=== PATIENT | male | born 1960 | race Caucasian/White ===

== ENCOUNTER → 2020-10-22 16:34 | Outpatient (CLI) | payer OTHER, SELFPAY ==
[2020-10-22 17:12] LABS: Absolute Neutrophil Count 7.3 X10^3/uL (2.0-7.7); Basophil# 0.06 X10^3/uL; Basophil% 0.6 % (0-1); Eosinophil# 0.31 X10^3/uL; Eosinophils% 3.1 % (0-5); Hematocrit 44.3 % (40-54); Hemoglobin 15.1 g/dL (13.0-16.5); Lymphocyte % 15.2 % (19-41); Mean Corp Hgb Conc 34.1 g/dL (32-36); Mean Corpuscular Hgb 29.7 pg (27.0-32.0); Mean Corpuscular Volume 87.2 fL (80-94); Mean Platelet Vol. 10.5 fl (6.2-12.0); Monocyte# 0.69 X10^3/uL; NRBC Flagged by Analyzer 0 % (0-5); Neutrophil # 7.28 X10^3/uL (2.7-7.7); Neutrophil % 73.5 % (47-70); Platelet Count 238 K/mm3 (150-450); RBC Distribution Width CV 13.3 % (11.6-14.6); RBC Distribution Width SD 42.7 fl (35.1-43.9); Red Blood Count 5.08 M/mm3 (4.6-6.2); White Blood Count 9.9 K/mm3 (4.4-11.0)
[2020-10-22 17:56] LABS: ALB/GLOB Ratio 1.1 RATIO (0.9-2.4); AST(SGOT) 24 U/L (15-37); Alanine Aminotransfer ALT/SGPT 43 U/L (16-61); Albumin, Serum 3.8 g/dL (3.2-5.0); Alkaline Phosphatase 73 U/L (45-117); Anion Gap 6 (5-15); BUN 19 mg/dL (7-18); Chloride 107 mmol/L (98-107); Creatinine, Serum 1.12 mg/dL (0.70-1.30); EST Glomerular Filtration Rate 71 mL/min (>60); Est Glom Filt Rate - Afr Amer 86 mL/min (>60); Globulin 3.5 g/dL (2.2-4.2); Glucose 99 mg/dL (74-106); Potassium 3.8 mmol/L (3.5-5.1); Protein, Total 7.3 g/dL (6.4-8.2); Sodium Level 140 mmol/L (136-145)
[2020-10-23 10:39] LABS: Hepatitis C Antibody Non-Reactive (Nonreactive)
== END ==
PROVIDERS: PCP Family Medicine Geriatric Medicine; Visit Provider Family Medicine Geriatric Medicine
DX: Z13.89 Encounter for screening for other disorder (principal); R53.83 Other fatigue
CPT/HCPCS: 36415; 80053; 84443; 85025; 86803

== ENCOUNTER → 2020-10-29 15:44 | Outpatient (CLI) | payer OTHER, SELFPAY ==
--- NOTE | 2020-10-29 15:54 | CT_ITS ---
STUDY: CT ABDOMEN AND PELVIS WITH CONTRAST REASON FOR EXAM: Male, 60 years old. Abdominal pain. RADIATION DOSAGE (If Supplied By Facility): CTDIvol = ( 20.25 ) mGy, DLP = ( 1062.11 ) mGycm TECHNIQUE: Transaxial images were obtained from the dome of the diaphragm to the symphysis pubis with oral contrast. 100mL Isovue-300 was administered. Sagittal and coronal images were reconstructed. Individualized dose optimization techniques were used for this CT. COMPARISON: None. FINDINGS: The visualized lung bases are unremarkable. The visualized portions of the heart are within normal limits. Question aortic valve replacement. The liver is enlarged and diffusely fatty infiltrated. There is no focal mass. Normal gallbladder and extrahepatic biliary system. There are multiple benign calcified granulomata of the spleen. Normal pancreas. Normal bilateral adrenal glands. Normal right kidney. Normal left kidney. Normal ureters. Normal visualized stomach. Normal small intestine. Scattered colonic diverticulosis without acute inflammatory change. Feces is seen throughout the colon without mass or obstruction. The appendix is visualized and appears normal. Minimal atherosclerotic changes of the abdominal aorta without aneurysm or dissection. Normal inferior vena cava. Normal retroperitoneum. Normal urinary bladder. Normal prostate. There are phleboliths in the pelvis without lymphadenopathy. No free air or free fluid is seen within the peritoneal cavity. Bilateral inguinal hernias of omental fat. The abdominal wall is otherwise unremarkable There are diffuse degenerative changes of the visualized lumbar spine. CT/Abdomen/Pelvis WITH Contrast IMPRESSION: 1. Enlarged fatty infiltrated liver without mass. 2. Calcified granulomata within the spleen. 3. Colonic diverticulosis without inflammatory change. Electronically Signed: Sammy Stevens DO at 19:05 EDT Tel [phone], Service support ,
[2020-10-29 17:15] LABS: Absolute Lymphocyte Count 1.74 X10^3/uL (0.83-4.51); Absolute Neutrophil Count 9.4 X10^3/uL (2.0-7.7); Basophil# 0.06 X10^3/uL; Basophil% 0.5 % (0-1); Eosinophil# 0.35 X10^3/uL; Eosinophils% 2.8 % (0-5); Lymphocyte # 1.74 X10^3/ul (0.83-4.51); Lymphocyte % 13.8 % (19-41); Mean Corp Hgb Conc 32.7 g/dL (32-36); Mean Corpuscular Hgb 28.8 pg (27.0-32.0); Mean Corpuscular Volume 88.1 fL (80-94); Monocyte# 0.91 X10^3/uL; Monocyte% 7.2 % (0-10); NRBC Flagged by Analyzer 0 % (0-5); Neutrophil # 9.41 X10^3/uL (2.7-7.7); Neutrophil % 74.9 % (47-70); Platelet Count 250 K/mm3 (150-450); RBC Distribution Width CV 13.4 % (11.6-14.6); RBC Distribution Width SD 43.4 fl (35.1-43.9); Red Blood Count 5.56 M/mm3 (4.6-6.2); White Blood Count 12.6 K/mm3 (4.4-11.0)
[2020-10-29 17:46] LABS: ALB/GLOB Ratio 1.1 RATIO (0.9-2.4); AST(SGOT) 17 U/L (15-37); Alanine Aminotransfer ALT/SGPT 40 U/L (16-61); Albumin, Serum 4.1 g/dL (3.2-5.0); Alkaline Phosphatase 75 U/L (45-117); Anion Gap 6 (5-15); BUN 21 mg/dL (7-18); BUN/Creat Ratio 17.5 RATIO (10-20); Calcium,Total 9.3 mg/dL (8.5-10.1); Chloride 104 mmol/L (98-107); EST Glomerular Filtration Rate 65 mL/min (>60); Est Glom Filt Rate - Afr Amer 79 mL/min (>60); Globulin 3.6 g/dL (2.2-4.2); Glucose 91 mg/dL (74-106); Potassium 3.8 mmol/L (3.5-5.1); Protein, Total 7.7 g/dL (6.4-8.2); Sodium Level 138 mmol/L (136-145)
== END ==
PROVIDERS: PCP Family Medicine Geriatric Medicine; Referring Provider Family Medicine Geriatric Medicine; Visit Provider Family Medicine Geriatric Medicine
DX: R10.9 Unspecified abdominal pain (principal)
CPT/HCPCS: 36415; 74177; 80053; 85025; Q9967

== ENCOUNTER → 2020-11-11 08:19 | Outpatient (CLI) | payer OTHER, SELFPAY ==
--- NOTE | 2020-11-11 08:21 | US_ITS ---
STUDY: ABDOMINAL ULTRASOUND - RIGHT UPPER QUADRANT REASON FOR VISIT: Male, 60 years old FATTY LIVER TECHNIQUE: Ultrasound evaluation of the right upper quadrant was performed with real-time and static pereyra-scale imaging. TECHNICAL QUALITY: Adequate. COMPARISON: None. FINDINGS: Liver: The liver is enlarged and measures 20.6 cm. There is increased echogenicity consistent with fatty infiltration. The bile ducts are within normal limits. There is hepatic color flow. The direction of portal flow is hepatopetal. There is no demonstrated mass lesion. Gallbladder: Normal distended gallbladder. The gallbladder wall measures 2.2 mm. There is a negative sonographic Nayak''s sign. There is no pericholecystic fluid. There are no gallstones. Findings suggestive of the 3 small gallbladder polyps. The largest measures 6 mm. Common Bile Duct (C.B.D.): The common bile duct measures 3.3 mm. Pancreas: Normal size of the head, body and tail of the pancreas. There is increased echogenicity of the pancreas. There is no demonstrated pancreatic mass or cyst. Right Kidney: Normal size of the right kidney. The right kidney measures 10.5 cm x 6.1 cm x 6 cm. Normal renal cortex. The right cortex measures 2.3 cm. There is no demonstrated renal mass or cyst. There is no right hydronephrosis. IMPRESSION: Hepatomegaly and diffuse fatty infiltration of the liver. There are 3 small gallbladder polyps. Electronically Signed: Tomy Valverde MD at 13:29 EDT , Service support , STUDY: ABDOMINAL ULTRASOUND - ELASTOGRAPHY REASON FOR VISIT: Male, 60 years old. Fatty infiltration of the liver. TECHNIQUE: Liver stiffness measurements were obtained on a Agendize 85 ultrasound machine using a CA 1-7 probe following the SRU guidelines. 3 measurements were obtained using a 2-D-SWE method. The IQR/M was 21% suggesting a quality data set. TECHNICAL QUALITY: Adequate. COMPARISON: Comparison is made with prior sonogram of the right upper quadrant done earlier in the day. FINDINGS: Liver: There is evidence of hepatomegaly and fatty infiltration of the liver. Median liver stiffness measured 7.3 kPa. US/Elastography Parenchyma/Organ IMPRESSION: Liver stiffness measures 7.3 kPa compatible with F2 Metavir score. Electronically Signed: Tomy Valverde MD at 13:31 EDT , Service support ,
--- NOTE | 2020-11-11 08:21 | US_ITS ---
STUDY: ABDOMINAL ULTRASOUND - RIGHT UPPER QUADRANT REASON FOR VISIT: Male, 60 years old FATTY LIVER TECHNIQUE: Ultrasound evaluation of the right upper quadrant was performed with real-time and static pereyra-scale imaging. TECHNICAL QUALITY: Adequate. COMPARISON: None. FINDINGS: Liver: The liver is enlarged and measures 20.6 cm. There is increased echogenicity consistent with fatty infiltration. The bile ducts are within normal limits. There is hepatic color flow. The direction of portal flow is hepatopetal. There is no demonstrated mass lesion. Gallbladder: Normal distended gallbladder. The gallbladder wall measures 2.2 mm. There is a negative sonographic Nayak''s sign. There is no pericholecystic fluid. There are no gallstones. Findings suggestive of the 3 small gallbladder polyps. The largest measures 6 mm. Common Bile Duct (C.B.D.): The common bile duct measures 3.3 mm. Pancreas: Normal size of the head, body and tail of the pancreas. There is increased echogenicity of the pancreas. There is no demonstrated pancreatic mass or cyst. Right Kidney: Normal size of the right kidney. The right kidney measures 10.5 cm x 6.1 cm x 6 cm. Normal renal cortex. The right cortex measures 2.3 cm. There is no demonstrated renal mass or cyst. There is no right hydronephrosis. IMPRESSION: Hepatomegaly and diffuse fatty infiltration of the liver. There are 3 small gallbladder polyps. Electronically Signed: Tomy Valverde MD at 13:29 EDT , Service support , STUDY: ABDOMINAL ULTRASOUND - ELASTOGRAPHY REASON FOR VISIT: Male, 60 years old. Fatty infiltration of the liver. TECHNIQUE: Liver stiffness measurements were obtained on a TRIRIGA 85 ultrasound machine using a CA 1-7 probe following the SRU guidelines. 3 measurements were obtained using a 2-D-SWE method. The IQR/M was 21% suggesting a quality data set. TECHNICAL QUALITY: Adequate. COMPARISON: Comparison is made with prior sonogram of the right upper quadrant done earlier in the day. FINDINGS: Liver: There is evidence of hepatomegaly and fatty infiltration of the liver. Median liver stiffness measured 7.3 kPa. US/Liver IMPRESSION: Liver stiffness measures 7.3 kPa compatible with F2 Metavir score. Electronically Signed: Tomy Valverde MD at 13:31 EDT , Service support ,
== END ==
PROVIDERS: PCP Family Medicine Geriatric Medicine; Visit Provider Family Medicine Geriatric Medicine
DX: K76.0 Fatty (change of) liver, not elsewhere classified (principal); K82.4 Cholesterolosis of gallbladder
CPT/HCPCS: 76705; 76981

== ENCOUNTER → 2021-11-25 | Outpatient (CLI) | payer OTHER, SELFPAY ==
[2021-11-25 12:19] LABS: Absolute Lymphocyte Count 1.74 X10^3/uL (0.83-4.51); Absolute Neutrophil Count 5.4 X10^3/uL (2.0-7.7); Basophil# 0.07 X10^3/uL; Basophil% 0.8 % (0-1); Eosinophil# 0.33 X10^3/uL; Hematocrit 46.1 % (40-54); Hemoglobin 15.8 g/dL (13.0-16.5); Lymphocyte # 1.74 X10^3/ul (0.83-4.51); Lymphocyte % 20.9 % (19-41); Mean Corp Hgb Conc 34.3 g/dL (32-36); Mean Corpuscular Volume 87.5 fL (80-94); Monocyte% 8.4 % (0-10); NRBC Flagged by Analyzer 0 % (0-5); Neutrophil # 5.35 X10^3/uL (2.7-7.7); Neutrophil % 64.3 % (47-70); Platelet Count 244 K/mm3 (150-450); Red Blood Count 5.27 M/mm3 (4.6-6.2); White Blood Count 8.3 K/mm3 (4.4-11.0)
[2021-11-25 12:48] LABS: AST(SGOT) 27 U/L (15-37); Alanine Aminotransfer ALT/SGPT 46 U/L (16-61); Albumin, Serum 3.7 g/dL (3.2-5.0); Alkaline Phosphatase 74 U/L (45-117); Anion Gap 9 (5-15); BUN 21 mg/dL (7-18); BUN/Creat Ratio 16.4 RATIO (10-20); Calcium,Total 9.1 mg/dL (8.5-10.1); Chloride 102 mmol/L (98-107); Creatinine, Serum 1.28 mg/dL (0.70-1.30); EST Glomerular Filtration Rate 60 mL/min (>60); Est Glom Filt Rate - Afr Amer 73 mL/min (>60); Globulin 3.8 g/dL (2.2-4.2); Glucose 99 mg/dL (74-106); PSA,Total - Annual Screen 0.77 ng/mL (0.00-4.00); Potassium 4.5 mmol/L (3.5-5.1); Protein, Total 7.5 g/dL (6.4-8.2); Sodium Level 137 mmol/L (136-145); Thyroid Stim Hormone (TSH) 2.09 uIU/mL (0.358-3.74)
== END | disposition home or self-care (01) ==
LOC: POLAB3 08:56
PROVIDERS: PCP Family Medicine Geriatric Medicine; Visit Provider Family Medicine Geriatric Medicine
DX: Z12.5 Encounter for screening for malignant neoplasm of prostate (principal); R53.83 Other fatigue
CPT/HCPCS: 36415; 80053; 84153; 84403; 84443; 85025; G0103

== ENCOUNTER → 2021-12-31 | Outpatient (CLI) | payer OTHER, SELFPAY | END | disposition home or self-care (01) | PROVIDERS: PCP Family Medicine Geriatric Medicine; Referring Provider Family Medicine Geriatric Medicine; Visit Provider Family Medicine Geriatric Medicine | DX: R06.02 Shortness of breath (principal) | CPT/HCPCS: 93306 ==

== ENCOUNTER → 2022-01-05 | Outpatient (CLI) | payer OTHER, SELFPAY ==
--- NOTE | 2022-01-05 07:43 | CT_ITS ---
STUDY: LOW DOSE CT LUNG CANCER SCREENING REASON FOR EXAM: Male, 61 years old. EX-SMOKER 12 YEARS AGO. SMOKED 1PPD X 34 YEARS RADIATION DOSAGE (If Supplied By Facility): CTDIvol = ( 4.02 ) mGy, DLP = ( 155.52 ) mGycm TECHNIQUE: No contrast was administered. Low dose technique was utilized (average mAS-38 and kVp 120). 1.25 mm axial source images with a slice interval of 1.25-mm were reconstructed in lung windows. 2.5 mm axial source images with a slice interval of 2.5-mm were reconstructed in lung windows. 5.0 mm axial source images with a slice interval of 5.0-mm were reconstructed in soft tissue windows. COMPARISON: None. NODULES: No suspicious nodules are seen. Emphysema: Hyperinflation. Emphysematous changes. Centrilobular emphysematous changes more pronounced in the upper lobes. Scarring at the left lung apex. Endobronchial lesion: None Aorta: Mild degree of atherosclerotic plaque formation of the aortic arch. CORONARY ARTERIES: Coronary artery calcification is seen. Heart: Unremarkable. Pulmonary artery: Unremarkable. Mediastinal nodes: Calcified left hilar lymph nodes. Calcified mediastinal lymph nodes. Other chest and abdominal findings: CT/Low Dose CT Lung Screening IMPRESSION: Lung-RADS category 1 - Continue annual screening with LDCT in 12 months. IMPORTANT NOTES FOR USE: ACR Lung-RADS Version 1.1 Assessment Categories Release Date: 2018 Category: Coded 0-4 bases on nodule(s) with highest degree of suspicion. Negative screen is defined as categories 1 and 2; a positive screen is defined as categories 3 and 4. Category 3 and 4A nodules that are unchanged on interval CT should be coded as category 2, and individuals returned to screening in 12 months. Category 4X: Category 3 or 4 nodules with additional imaging findings that increase the suspicion of lung cancer, such as spiculation, GGN that doubles in size in 1 year, enlarged lymph notes, etc. Category Modifiers: S (significant finding unrelated to lung cancer) Electronically Signed: Tomy Valverde MD at 9:21 EST ,
== END | disposition home or self-care (01) ==
LOC: CT 07:42
PROVIDERS: PCP Family Medicine Geriatric Medicine; Visit Provider Internal Medicine Pulmonary Disease
DX: Z87.891 Personal history of nicotine dependence (principal)
CPT/HCPCS: 71271

== ENCOUNTER 2022-01-17 12:23 | Emergency (ER) | payer OTHER, SELFPAY ==
[2022-01-17 12:24] VITALS: BP 151/95; PULSE 79; RESP 18; TEMP 36.6; O2SAT 98; BMI 33.0
--- NOTE | 2022-01-17 12:38 | CT_ITS ---
EXAM: CT ABDOMEN AND PELVIS WITHOUT INTRAVENOUS CONTRAST CLINICAL INDICATION: Left inguinal pain. Rule out hernia. TECHNIQUE: Helically acquired images were obtained of the abdomen and pelvis without intravenous contrast. This CT exam was performed using one or more of the following dose reduction techniques: automated exposure control, adjustment of the mA and/or kV according to patient size, and/or use of iterative reconstruction technique. This report was created using [employer] report generation technology. RADIATION DOSE: CTDIvol = 12.12 mGy, DLP = 858.51 mGy-cm COMPARISON: CT abdomen and pelvis with contrast 10/29/2020. FINDINGS: LOWER THORAX: Unremarkable. Lung bases are clear. No cardiomegaly. No significant pericardial effusion. ABDOMEN: LIVER: Moderate diffuse fatty infiltration of liver. Mild hepatomegaly is unchanged. GALLBLADDER AND BILE DUCTS: Unremarkable. No calcified gallstones. No gallbladder distention or wall edema. No intra- or extrahepatic biliary ductal dilation. PANCREAS: Unremarkable. No focal cystic mass. SPLEEN: Unremarkable. Normal size without focal cystic or solid mass. ADRENALS: Unremarkable. No nodules. KIDNEYS AND URETERS: Unremarkable. Normal renal size and position. No hydronephrosis. STOMACH AND BOWEL: Small scattered diverticula along the descending colon without diverticulitis. No stomach or bowel distention. PELVIS: APPENDIX: Normal. BLADDER: Unremarkable. REPRODUCTIVE: Unremarkable as visualized. No mass. ABDOMEN and PELVIS: INTRAPERITONEAL SPACE: Unremarkable. No ascites or other fluid collection. No free air. BONES/JOINTS: L5-S1 degenerative disc space narrowing with degenerative vacuum phenomenon is unchanged. No suspicious lytic or blastic abnormality. SOFT TISSUES: Unremarkable. No discrete abdominal or pelvic wall hernia. VASCULATURE: Unremarkable. Abdominal aorta is non-dilated. LYMPH NODES: Unremarkable. No enlarged lymph nodes. CT/Abdomen/Pelvis without Cont IMPRESSION: 1. Hepatomegaly and moderate diffuse hepatic steatosis. 2. Colonic diverticulosis along the descending colon without diverticulitis. 3. No significant interval change when compared to 10/29/2020. Electronically Signed: Eduard Machado MD at 13:17 EST Reading Location ID and State: [id number] [facility] , Service support ,
--- NOTE | 2022-01-17 13:22 | EX.ED.GUMALE ---
HPI History of Present Illness Chief Complaint: Male Pain/Injury Informant: patient Narrative Narrative: Pain to left groin for 3 days worse with coughing and movement. No urinary symptoms. Mild burning to the left flank. No history of similar. Normal bowel movements daily last 1 this morning. States pain would come and go. No history of kidney stones. Reports history of mitral valve prolapse. Prior similar symptoms: No PFSH PFSH Home Medications ciprofloxacin HCl 500 mg tablet (Cipro) 500 mg PO BID #10 tabs 01/17/22 [Rx Last Taken Unknown] Allergy/AdvReac Type Severity Reaction Status Date / Time No Known Allergies Allergy Verified 01/17/22 12:25 Social History Smoking Status: Unknown if ever smoked ROS ROS ED Constitutional Constitutional ED: Denies chills, fever(s) or sweats Eyes Eyes: Denies change in vision ENT ENT ED: Denies dysphagia or sore throat Cardiovascular Cardiovascular: Denies chest pain, leg edema, palpitations or racing heartbeat Respiratory/Chest Respiratory/Chest: Denies cough, dyspnea or dyspnea on exertion Gastrointestinal Gastrointestinal: Denies abdominal pain, diarrhea, nausea or vomiting Genitourinary Genitourinary ED: Reports other Details: Left groin pain. ; Denies dysuria, hematuria or urinary frequency Musculoskeletal Musculoskeletal: Denies back pain, extremity pain or neck pain Integumentary Denies rash or wounds Neurologic Neurologic: Denies headache(s), paresthesias or weakness EXAM Physical Exam Const Vital Signs: 01/17/22 12:24 Temperature 97.8 F Temperature Source Temporal Pulse Rate 79 Respiratory Rate 18 Blood Pressure 151/95 H Blood Pressure Mean 113 Pulse Ox 98 Oxygen Delivery Method Room Air Positive well nourished and well developed General Appearance ED: well developed and NAD HEENT Reports moist mucous membranes normocephalic and atraumatic Eyes PERRL, EOMs intact bilaterally and conjunctivae normal General Eye ED: Yes normal appearance of both eyes Neck no lymphadenopathy and supple General: Negative for tenderness Chest Wall Chest: Negative for tenderness Resp normal respiratory effort and normal air movement Effort and Inspection: symmetric chest movement; Negative for respiratory distress Cardio regular rate, regular rhythm and no murmurs Peripheral Pulses: pulses 2+ throughout GI normal to inspection, nondistended, normoactive bowel sounds and non-tender Palpation: Negative for guarding or rebound tenderness present Narrative: No scrotal swelling bilaterally. There is mild tenderness at the epididymis. No bulging in the inguinal nodes, however there was tenderness in the left inguinal canal with soft tissue palpated. Back/Spine no CVA tenderness and no thoracic nor lumbar tenderness Extremity normal to inspection General Extremety ED: Negative for edema or tenderness General Extremity: Negative for edema Neuro oriented x3 and no sensory deficits noted Sensorium / Orientation: awake and alert Skin no rashes or lesions noted and no wounds MDM MDM MDM Narrative Medical decision making narrative: Patient declined any medications. Tenderness at the domestic and upper left groin. There is soft tissue palpated however no clear bowels. CT scan obtained abdomen pelvis negative for any hernias. Urine was negative. Clinical concerns for epididymitis at this time. He will use Tylenol or ibuprofen. He started on antibiotics. Scrotal support discussed. 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 Likely friction cause. He is given urology for follow-up. All questions were answered. Lab Data Labs: Laboratory Results - last 24 hr 01/17/22 13:25 Urine Color Yellow Urine Clarity Clear Urine pH 7.0 Ur Specific [place] 1.015 Urine Protein Negative Urine Glucose (UA) Normal Urine Ketones Negative Urine Occult Blood Negative Urine Nitrite Negative Urine Bilirubin Negative Urine Urobilinogen Normal Ur Leukocyte Esterase Negative Urine RBC 0 SEEN Urine WBC 0 SEEN Ur Squamous Epith Cells 0-5 SEEN Urine Bacteria 0 SEEN Urine Mucus 0 SEEN Radiography Diagnostic Testing: Clinical Impression(s) from Imaging Studies Abdomen/Pelvis CT 01/17/22 12:38 IMPRESSION: 1. Hepatomegaly and moderate diffuse hepatic steatosis. 2. Colonic diverticulosis along the descending colon without diverticulitis. 3. No significant interval change when compared to 10/29/2020. Electronically Signed: Eduard Machado MD at 13:17 EST , Discharge Plan Triage Chief Complaint: Male Pain/Injury ED Provider: Dae Tariq Dx/Rx/DC Orders Clinical Impression: Left epididymitis, Left groin pain Instructions: ED Epididymitis Prescriptions: New ciprofloxacin HCl [Cipro] 500 mg tablet 500 mg PO BID Qty: 10 0RF Primary Care Provider: Ike Harvey Chi Referrals: Bobby Greenberg MD [Med Staff - Active Staff] - 1 Week if not improving Ike Harvey Chi, MD [Primary Care Provider] - Activity Restrictions/Additional Instructions: CT scan negative for any hernia. Urine negative. Clinical epididymitis. Take antibiotic as prescribed. Tylenol or ibuprofen as needed. Continue scrotal support as discussed. Disposition Disposition: Home, Self Care Discharge Date/Time: 01/17/22 14:50
[2022-01-17 13:29] LABS: Bacteria 0 SEEN /hpf (None Seen); Mucous, Urine 0 SEEN /hpf (<or=2+); Red Blood Cells-Urine 0 SEEN /hpf (0-5); White Blood Cells 0 SEEN /hpf (0-5)
[2022-01-17 13:30] LABS: Color, Urine Yellow (Yellow); Glucose, Dipstick Normal (Normal); Ketone-Dipstick Negative (Negative); Leukocyte Esterase-Dipstick Negative /ul (Negative); Nitrite-Dipstick Negative (Negative); Occult Blood-Urine Negative /ul (Negative); Protein-Dipstick Negative (Negative); Specific Gravity, Urine 1.015 (1.002-1.030); Urine Bilirubin Dipstick Negative (Negative); Urine Clarity Clear (Clear); Urine Urobilinogen Normal (Normal)
[2022-01-17 13:36] LABS: Squamous Epithelial Cells - UA 0-5 SEEN /hpf (0-5)
== END 2022-01-17 14:50 | disposition home or self-care (01) ==
PROVIDERS: Emergency Provider Emergency Medicine; PCP Family Medicine Geriatric Medicine; Visit Provider Emergency Medicine
DX: N45.1 Epididymitis (principal); R10.2 Pelvic and perineal pain
CPT/HCPCS: 74176; 81001; 99282

== ENCOUNTER 2022-07-14 06:44 | Emergency (ER) | payer OTHER, SELFPAY ==
[2022-07-14 06:45] VITALS: BP 168/110; PULSE 70; RESP 18; TEMP 35.8; O2SAT 95; BMI 34.2
--- NOTE | 2022-07-14 06:54 | RAD_ITS ---
EXAM: XR LEFT SHOULDER COMPLETE, 2 OR MORE VIEWS CLINICAL INDICATION: fall TECHNIQUE: Two or more views of the left shoulder. COMPARISON: No relevant prior studies available. FINDINGS: BONES/JOINTS: Unremarkable. No acute fracture. No subluxation. Normal alignment. Preservation of the joint space. No sclerotic or destructive changes observed. SOFT TISSUES: Unremarkable. No soft tissue swelling or gas. No radiopaque foreign body. RAD/Shoulder min 2 Views IMPRESSION: Negative left shoulder x-rays. Electronically Signed: Gucci Snow MD at 7:37 EDT ,
--- NOTE | 2022-07-14 07:13 | RAD_ITS ---
EXAM: XR CHEST, 2 VIEWS CLINICAL INDICATION: left chest pain, fall TECHNIQUE: Frontal and lateral views of the chest. COMPARISON: No relevant prior studies available. FINDINGS: LUNGS AND PLEURAL SPACES: Unremarkable. No consolidation or edema. No pneumothorax. No effusion. HEART: Unremarkable. Cardiac silhouette not enlarged. MEDIASTINUM: Central airways and mediastinal contour are unremarkable. BONES/JOINTS: Unremarkable. SOFT TISSUES: Unremarkable. RAD/Chest PA and Lateral IMPRESSION: No radiographic evidence of acute chest injury. Electronically Signed: Gucci Snow MD at 7:37 EDT ,
--- NOTE | 2022-07-14 07:13 | RAD_ITS ---
EXAM: XR CERVICAL SPINE, 4 OR 5 VIEWS CLINICAL INDICATION: LUE numbness TECHNIQUE: Frontal, lateral and bilateral oblique views of the cervical spine. COMPARISON: No relevant prior studies available. FINDINGS: VERTEBRAE: Unremarkable. Preserved vertebral body height. No acute fracture. No spondylolisthesis. Preservation of the normal cervical lordosis. No significant facet arthropathy. DISC SPACES: Degenerative changes of the intervertebral discs. Mild osseous encroachment of the right C3/4 neural foramen. SOFT TISSUES: Unremarkable. No prevertebral soft tissue widening. LUNG APICES: Clear. RAD/Cerv Spine 4 or 5 Views IMPRESSION: 1. No acute injuries identified involving the cervical spine. 2. Degenerative changes. Electronically Signed: Gucci Snow MD at 7:36 EDT ,
--- NOTE | 2022-07-14 07:14 | EKG12_ITS ---
Test Reason : Blood Pressure : / mmHG Vent. Rate : 064 BPM Atrial Rate : 064 BPM P-R Int : 192 ms QRS Dur : 106 ms QT Int : 420 ms P-R-T Axes : 025 -16 029 degrees QTc Int : 433 ms Normal sinus rhythm Normal ECG Confirmed by POLLO LR, BRIDGER ([id number]), social media editor KILO HANSON ([id number]) on 07/16/2022 9:50:30 AM Referred By: BB Confirmed By:BRIDGER ABAD MD
--- NOTE | 2022-07-14 07:14 | EX.ED.UPPERE ---
HPI History of Present Illness Chief Complaint: Upper Extremity Injury Informant: patient Narrative Narrative: Patient had a fall 3 weeks ago. He was walking up some steps with his hands full, he tripped and fell he thinks with his left outstretched hand, and he had some pain immediately in the shoulder blade area, and he injured the toe. The toe has improved and is not bothering him anymore, but he has been having off and on pain in the shoulder blade area, but also his left upper chest and his left upper arm which has been achy and he has had tingling/numbness off-and-on down into his hand which he noticed first time about a week after the injury not at the immediate event. He denies any dyspnea. He denies any exertional symptoms including the chest discomfort. Last night things got worse after he got done playing golf and so he presents for it this morning, he states this is the first time he has presented for care for these issues. No known history of heart problems. No neck injury or head injury when he fell. [facility] Medical History (Updated 07/14/22 @ 09:[address] Jose Maurer MD) Hyperlipidemia Home Medications hydrocodone-acetaminophen 5-325mg 5mg-325mg 1 tab PO Q6H PRN PRN Pain 3 days #10 TABLETS 07/14/22 [Rx Last Taken Unknown] rosuvastatin 5 mg tablet 5 mg PO QHS 07/14/22 [History Last Taken Unknown] Allergy/AdvReac Type Severity Reaction Status Date / Time No Known Allergies Allergy Verified 07/14/22 06:49 Social History Smoking Status: Former smoker ROS ROS ED Constitutional Constitutional ED: Denies chills or fever(s) Eyes Eyes: Denies change in vision or diplopia ENT ENT ED: Denies rhinorrhea or sore throat Cardiovascular Cardiovascular: Reports chest pain; Denies palpitations Respiratory/Chest Respiratory/Chest: Denies cough or dyspnea Gastrointestinal Gastrointestinal: Denies abdominal pain, diarrhea, nausea or vomiting Genitourinary Genitourinary ED: Denies dysuria or hematuria Musculoskeletal Musculoskeletal: Reports back pain and extremity pain; Denies neck pain Integumentary Denies abscess or rash Neurologic Neurologic: Reports paresthesias; Denies headache(s) or weakness Psychiatric Psychiatric: Denies anxiety or suicidal thoughts EXAM Physical Exam Const Vital Signs: 07/14/22 06:45 Temperature 96.5 F L Temperature Source Temporal Pulse Rate 70 Respiratory Rate 18 Blood Pressure 168/110 H Blood Pressure Mean 129 Pulse Ox 95 Oxygen Delivery Method Room Air Positive well nourished and well developed Constitutional Narrative: Well-appearing in no distress, conversive in full sentences, pleasant General Appearance ED: well developed and NAD HEENT Reports moist mucous membranes normocephalic and atraumatic Eyes PERRL and EOMs intact bilaterally Neck full ROM and supple General: Negative for tenderness Chest Wall inspection of chest normal Chest Narrative: Mild tenderness left upper chest wall below the clavicle and not including the clavicle. No subcutaneous emphysema. Resp normal respiratory effort and clear to auscultation bilaterally Resp Narrative: Equal breath sounds bilaterally Cardio regular rate, regular rhythm and no murmurs GI non-tender and non-distended Auscultation: normoactive bowel sounds Palpation: soft Back/Spine no CVA tenderness Back/Spine Narrative: Tender left sided rhomboids, no scapular tenderness or midline spinal tenderness General Back: other FROM Extremity normal to inspection Extremity Narrative: Trigger finger left middle finger without any bony tenderness, he is able to move it but there is a clunk with each flexion of the FDS of that digit General Extremety ED: Negative for edema, pulses abnormal or tenderness General Extremity: Negative for edema or pulses abnormal Neuro oriented x3, CN's II-XII intact bilaterally and no sensory deficits noted Sensorium / Orientation: awake and alert Motor Exam: strength 5/5 throughout Psych mental status grossly normal Skin no rashes or lesions noted and no wounds MDM MDM MDM Narrative Medical decision making narrative: Prior to my arrival, protocol order for the left shoulder was placed, I was at a very low suspicion for a shoulder girdle bony injury given his exam, having full range of motion and no tenderness except for the rhomboids. Three-view x-ray series of my interpretation is normal, radiology was in agreement. In addition given his left upper chest pain, I obtain 2 view x-ray series of the chest which is normal without a pneumothorax or rib fracture my interpretation, and I also obtained a 5 view x-ray series of the cervical spine, which on my interpretation shows no acute fracture. I reviewed the radiologist's interpretations. I did the C-spine x-rays because of the possible neuropathic discomfort/paresthesias in the left upper extremity which would be more likely to be radicular C4-5 or C5-6, or lower levels with the tingling in his fingers, rather than a brachial plexus injury although that is in the differential diagnosis as well given that he did have an injury, although I suspect it was relatively minor and would be unlikely to cause that. The radiologist did see some bony encroachment of the right C3-4 neural foramen, which does not correlate with his symptoms he is having now. I did also consider cardiac etiologies, his EKG and troponin both normal, with having discomfort for as long as he has I do not think that he needs any further emergent testing to rule out acute coronary syndrome right now. Given all of these unremarkable test, I think this is mostly muscle strain, but neuropathic etiologies are also in the differential. I recommend follow-up I do not think he needs to have any other emergent tests are admitted. He is comfortable with that plan. At discharge, the patient said that he took one of his 's Vicodin for this once in the last couple days and it made all the pain temporarily resolved. Gregorio burnette was given a short prescription for that. Lab Data Attestation: I reviewed the patient's lab results. Labs: Laboratory Tests 07/14/22 07/14/22 Range/Units 07:30 07:30 WBC 9.3 (4.4-11.0) K/mm3 RBC 5.33 (4.6-6.2) M/mm3 Hgb 15.6 (13.0-16.5) g/dL Hct 47.0 (40-54) % MCV 88.2 (80-94) fL MCH 29.3 (27.0-32.0) pg MCHC 33.2 (32-36) g/dL RDW Std Deviation 44.0 H (35.1-43.9) fl RDW Coeff of Santhosh 13.6 (11.6-14.6) % Plt Count 199 (150-450) K/mm3 MPV 10.3 (6.2-12.0) fl Immature Gran % (Auto) 0.900 (0.0-0.9) % Neut % (Auto) 73.1 H (47-70) % Lymph % (Auto) 13.4 L (19-41) % [place] % (Auto) 8.8 (0-10) % Eos % (Auto) 3.0 (0-5) % Baso % (Auto) 0.8 (0-1) % Absolute Neuts (auto) 6.8 (2.0-7.7) X10^3/uL Absolute Lymphs (auto) 1.24 (0.83-4.51) X10^3/uL Nucleated RBC % 0 (0-5) % Sodium 136 (136-145) mmol/L Potassium 4.4 (3.5-5.1) mmol/L Chloride 105 (98-107) mmol/L Carbon Dioxide 25.0 (21.0-32.0) mmol/L Anion Gap 6 (5-15) BUN 21 H (7-18) mg/dL Creatinine 1.03 (0.70-1.30) mg/dL Estim Creat Clear Calc 71.02 ml/min Est GFR (MDRD) Af Amer 94 (>60) mL/min Est GFR (MDRD) Non-Af 78 (>60) mL/min BUN/Creatinine Ratio 20.4 H (10-20) RATIO Glucose 136 H (74-106) mg/dL Calcium 9.2 (8.5-10.1) mg/dL Troponin I High Sens 13 (3.0-78.0) pg/mL Rhythm Strip Rhythm Strip: Sinus Rhythm Rate: 65 Ectopy: None EKG Initial EKG: Attestation: I personally reviewed and interpreted this EKG as follows: Interpretation: Sinus Rhythm and No Acute Injury Pattern Comments: Normal EKG Prior EKG tracings: not available for review Prior: No Prior Discharge Plan Triage Chief Complaint: Upper Extremity Injury ED Provider: Jose Maurer Dx/Rx/DC Orders Clinical Impression: Rhomboid muscle strain, Arm paresthesia, left, Chest wall muscle strain Instructions: ED Back Sprain/Strain, ED Paraesthesias Prescriptions: New hydrocodone-acetaminophen [hydrocodone-acetaminophen] 5-325 mg tablet 1 tab PO Q6H PRN PRN (Reason: Pain) 3 Days Qty: 10 0RF No Action rosuvastatin 5 mg tablet 5 mg PO QHS Primary Care Provider: Ike Harvey Chi Referrals: Ike Harvey Chi, MD [Primary Care Provider] - 1 Week if not improving Disposition Disposition: Home, Self Care
[2022-07-14 07:37] LABS: Absolute Lymphocyte Count 1.24 X10^3/uL (0.83-4.51); Absolute Neutrophil Count 6.8 X10^3/uL (2.0-7.7); Basophil# 0.07 X10^3/uL; Basophil% 0.8 % (0-1); Eosinophil# 0.28 X10^3/uL; Hemoglobin 15.6 g/dL (13.0-16.5); Lymphocyte # 1.24 X10^3/ul (0.83-4.51); Lymphocyte % 13.4 % (19-41); Mean Corp Hgb Conc 33.2 g/dL (32-36); Mean Corpuscular Hgb 29.3 pg (27.0-32.0); Mean Corpuscular Volume 88.2 fL (80-94); Mean Platelet Vol. 10.3 fl (6.2-12.0); Monocyte# 0.82 X10^3/uL; Monocyte% 8.8 % (0-10); NRBC Flagged by Analyzer 0 % (0-5); Neutrophil # 6.78 X10^3/uL (2.7-7.7); Neutrophil % 73.1 % (47-70); Platelet Count 199 K/mm3 (150-450); RBC Distribution Width CV 13.6 % (11.6-14.6); Red Blood Count 5.33 M/mm3 (4.6-6.2); White Blood Count 9.3 K/mm3 (4.4-11.0)
[2022-07-14 07:55] LABS: Anion Gap 6 (5-15); BUN 21 mg/dL (7-18); BUN/Creat Ratio 20.4 RATIO (10-20); Calcium,Total 9.2 mg/dL (8.5-10.1); Chloride 105 mmol/L (98-107); Creatinine, Serum 1.03 mg/dL (0.70-1.30); EST Glomerular Filtration Rate 78 mL/min (>60); Est Glom Filt Rate - Afr Amer 94 mL/min (>60); Estimated Creatinine Clearance 71.02 ml/min; Glucose 136 mg/dL (74-106); Potassium 4.4 mmol/L (3.5-5.1); Sodium Level 136 mmol/L (136-145); Troponin-I HS 13 pg/mL (3.0-78.0)
[2022-07-14 08:29] VITALS: BP 141/88; PULSE 64; RESP 16; O2SAT 98
== END 2022-07-14 09:16 | disposition home or self-care (01) ==
PROVIDERS: Emergency Provider Emergency Medicine; PCP Family Medicine Geriatric Medicine; Visit Provider Emergency Medicine
DX: S29.012A Strain of muscle and tendon of back wall of thorax, initial encounter (principal); S29.011A Strain of muscle and tendon of front wall of thorax, initial encounter; W10.9XXA Fall (on) (from) unspecified stairs and steps, initial encounter; Y93.01 Activity, walking, marching and hiking; Y99.8 Other external cause status; R20.2 Paresthesia of skin; Z87.891 Personal history of nicotine dependence
CPT/HCPCS: 71046; 72050; 73030; 80048; 84484; 85025; 93005; 99284; A4216

== ENCOUNTER → 2022-07-28 | Outpatient (CLI) | payer OTHER, SELFPAY ==
[2022-07-28 11:36] LABS: Cholesterol 253 mg/dL (200); High Density Lipoprotein 32 mg/dL; Triglycerides 288 mg/dL; Very Low Density Lipoprotein 58 mg/dL (5-40)
== END | disposition home or self-care (01) ==
LOC: POLAB3 09:41
PROVIDERS: PCP Family Medicine Geriatric Medicine; Visit Provider Family Medicine Geriatric Medicine
DX: E78.5 Hyperlipidemia, unspecified (principal)
CPT/HCPCS: 36415; 80061

== ENCOUNTER → 2022-08-13 | Outpatient (CLI) | payer OTHER, SELFPAY ==
[2022-08-13 10:10] LABS: Anion Gap 9 (5-15); BUN 20 mg/dL (7-18); BUN/Creat Ratio 17.4 RATIO (10-20); Calcium,Total 9.4 mg/dL (8.5-10.1); Chloride 103 mmol/L (98-107); Creatinine, Serum 1.15 mg/dL (0.70-1.30); EST Glomerular Filtration Rate 68 mL/min (>60); Est Glom Filt Rate - Afr Amer 83 mL/min (>60); Glucose 171 mg/dL (74-106); Potassium 4.2 mmol/L (3.5-5.1); Sodium Level 137 mmol/L (136-145)
== END | disposition home or self-care (01) ==
LOC: LAB 09:31
PROVIDERS: PCP Family Medicine Geriatric Medicine; Visit Provider Family Medicine Geriatric Medicine
DX: I10 Essential (primary) hypertension (principal)
CPT/HCPCS: 36415; 80048

== ENCOUNTER → 2022-09-07 | Outpatient (CLI) | payer OTHER, SELFPAY ==
[2022-09-07 09:41] LABS: Hemoglobin A1c 6.2 % (3.8-5.6)
== END | disposition home or self-care (01) ==
LOC: LAB 08:19
PROVIDERS: PCP Family Medicine Geriatric Medicine; Referring Provider Family Medicine Geriatric Medicine; Visit Provider Family Medicine Geriatric Medicine
DX: R73.9 Hyperglycemia, unspecified (principal)
CPT/HCPCS: 36415; 83036

== ENCOUNTER → 2023-07-18 | Outpatient (CLI) | payer OTHER, SELFPAY ==
[2023-07-18 17:04] LABS: Absolute Lymphocyte Count 1.57 X10^3/uL (0.83-4.51); Absolute Neutrophil Count 7.9 X10^3/uL (2.0-7.7); Basophil# 0.08 X10^3/uL; Basophil% 0.8 % (0-1); Eosinophil# 0.21 X10^3/uL; Hematocrit 43.5 % (40-54); Hemoglobin 14.4 g/dL (13.0-16.5); Lymphocyte # 1.57 X10^3/ul (0.83-4.51); Lymphocyte % 14.8 % (19-41); Mean Corp Hgb Conc 33.1 g/dL (32-36); Mean Corpuscular Hgb 28.9 pg (27.0-32.0); Mean Corpuscular Volume 87.3 fL (80-94); Mean Platelet Vol. 10.9 fl (6.2-12.0); Monocyte# 0.84 X10^3/uL; Monocyte% 7.9 % (0-10); NRBC Flagged by Analyzer 0 % (0-5); Neutrophil # 7.88 X10^3/uL (2.7-7.7); Neutrophil % 73.9 % (47-70); Platelet Count 199 K/mm3 (150-450); RBC Distribution Width SD 45.1 fl (35.1-43.9); Red Blood Count 4.98 M/mm3 (4.6-6.2); White Blood Count 10.6 K/mm3 (4.4-11.0)
[2023-07-18 17:55] LABS: ALB/GLOB Ratio 1.1 RATIO (0.9-2.4); AST(SGOT) 38 U/L (15-37); Alanine Aminotransfer ALT/SGPT 52 U/L (16-61); Alkaline Phosphatase 82 U/L (45-117); Anion Gap 3 (5-15); BUN 21 mg/dL (7-18); BUN/Creat Ratio 17.9 RATIO (10-20); Calcium,Total 9.2 mg/dL (8.5-10.1); Chloride 107 mmol/L (98-107); Cholesterol 149 mg/dL (200); Creatinine, Serum 1.17 mg/dL (0.70-1.30); EST Glomerular Filtration Rate 67 mL/min (>60); Est Glom Filt Rate - Afr Amer 81 mL/min (>60); Globulin 3.6 g/dL (2.2-4.2); Glucose 103 mg/dL (74-106); High Density Lipoprotein 42 mg/dL; PSA,Total - Annual Screen 0.66 ng/mL (0.00-4.00); Potassium 4.2 mmol/L (3.5-5.1); Protein, Total 7.6 g/dL (6.4-8.2); Sodium Level 137 mmol/L (136-145); Thyroid Stim Hormone (TSH) 3.21 uIU/mL (0.358-3.74); Triglycerides 311 mg/dL; Very Low Density Lipoprotein 62 mg/dL (5-40)
== END | disposition home or self-care (01) ==
LOC: LAB 16:15
PROVIDERS: PCP Family Medicine Geriatric Medicine; Referring Provider Family Medicine Geriatric Medicine; Visit Provider Family Medicine Geriatric Medicine
DX: I10 Essential (primary) hypertension (principal); E78.5 Hyperlipidemia, unspecified; Z12.5 Encounter for screening for malignant neoplasm of prostate
CPT/HCPCS: 36415; 80053; 80061; 84153; 84443; 85025; G0103

== ENCOUNTER → 2023-08-24 | Outpatient (CLI) | payer OTHER, SELFPAY ==
[2023-08-24 16:25] LABS: Absolute Lymphocyte Count 1.34 X10^3/uL (0.83-4.51); Absolute Neutrophil Count 7.9 X10^3/uL (2.0-7.7); Basophil# 0.07 X10^3/uL; Basophil% 0.7 % (0-1); Eosinophil# 0.28 X10^3/uL; Eosinophils% 2.7 % (0-5); Hematocrit 42.2 % (40-54); Hemoglobin 14.2 g/dL (13.0-16.5); Lymphocyte # 1.34 X10^3/ul (0.83-4.51); Lymphocyte % 12.9 % (19-41); Mean Corp Hgb Conc 33.6 g/dL (32-36); Mean Corpuscular Hgb 29.5 pg (27.0-32.0); Mean Corpuscular Volume 87.6 fL (80-94); Mean Platelet Vol. 10.8 fl (6.2-12.0); Monocyte# 0.75 X10^3/uL; Monocyte% 7.2 % (0-10); NRBC Flagged by Analyzer 0 % (0-5); Neutrophil # 7.89 X10^3/uL (2.7-7.7); Neutrophil % 75.8 % (47-70); Platelet Count 198 K/mm3 (150-450); RBC Distribution Width CV 13.4 % (11.6-14.6); Red Blood Count 4.82 M/mm3 (4.6-6.2); White Blood Count 10.4 K/mm3 (4.4-11.0)
[2023-08-24 16:31] LABS: Color, Urine Yellow (Yellow); Glucose, Dipstick Normal (Normal); Ketone-Dipstick Negative (Negative); Leukocyte Esterase-Dipstick Negative /ul (Negative); Nitrite-Dipstick Negative (Negative); Occult Blood-Urine Negative /ul (Negative); Protein-Dipstick Negative (Negative); Specific Gravity, Urine 1.015 (1.002-1.030); Urine Bilirubin Dipstick Negative (Negative); Urine Clarity Clear (Clear); Urine Urobilinogen Normal (Normal)
[2023-08-24 17:17] LABS: ALB/GLOB Ratio 1.1 RATIO (0.9-2.4); AST(SGOT) 30 U/L (15-37); Alanine Aminotransfer ALT/SGPT 47 U/L (16-61); Albumin, Serum 3.8 g/dL (3.2-5.0); Alkaline Phosphatase 86 U/L (45-117); Anion Gap 6 (5-15); BUN 17 mg/dL (7-18); BUN/Creat Ratio 15.5 RATIO (10-20); Calcium,Total 8.9 mg/dL (8.5-10.1); Chloride 106 mmol/L (98-107); EST Glomerular Filtration Rate 72 mL/min (>60); Est Glom Filt Rate - Afr Amer 87 mL/min (>60); Globulin 3.5 g/dL (2.2-4.2); Glucose 116 mg/dL (74-106); Potassium 3.9 mmol/L (3.5-5.1); Protein, Total 7.3 g/dL (6.4-8.2); Sodium Level 138 mmol/L (136-145); Thyroid Stim Hormone (TSH) 2.48 uIU/mL (0.358-3.74)
== END | disposition home or self-care (01) ==
LOC: LAB 15:41
PROVIDERS: PCP Family Medicine Geriatric Medicine; Referring Provider Family Medicine Geriatric Medicine; Visit Provider Family Medicine Geriatric Medicine
DX: R53.83 Other fatigue (principal); N39.0 Urinary tract infection, site not specified
CPT/HCPCS: 36415; 80053; 81002; 84443; 85025

== ENCOUNTER 2023-09-10 15:58 | Emergency (ER) | payer OTHER, SELFPAY ==
[2023-09-10] VITALS (7 sets, daily range): BP systolic 130–163; BP diastolic 89–109; PULSE 65–70; RESP 17–24; TEMP 35.7; O2SAT 97; BMI 34.0
--- NOTE | 2023-09-10 16:21 | EKG12_ITS ---
Test Reason : GENERAL Blood Pressure : / mmHG Vent. Rate : 069 BPM Atrial Rate : 069 BPM P-R Int : 198 ms QRS Dur : 100 ms QT Int : 406 ms P-R-T Axes : 007 -15 015 degrees QTc Int : 435 ms Normal sinus rhythm Incomplete right bundle branch block Borderline ECG Confirmed by JORGE LR, CHONG ([id number]), assistant film editor JULIANA SKAGGS ([id number]) on 09/14/2023 9:38:54 AM Referred By: Confirmed By:KRISTY PATEL MD
--- NOTE | 2023-09-10 16:21 | EDS_ITS ---
HPI History of Present Illness Chief Complaint: Hypertension Detail of Chief Complaint: High blood pressure Informant: patient Narrative Narrative: Patient presents with complaint of elevated blood pressures. He was seen in the emergency department 2 weeks ago for same. It was thought he may have had dehydration. He then followed up 2 weeks ago with his primary care physician. He has not had any adjustments made in his medications and takes losartan 100 mg once a day. His blood pressures have been running high in the 170s to 180s systolic over 100 diastolic. Patient complains of just no energy. He had some intermittent achy chest discomfort that is not exertional. He has history of sleep apnea and high cholesterol as well. [facility] Medical History (Updated 09/10/23 @ 18:[address] Cristobal Sanon DO) Hyperlipidemia Home Medications ?Medication ?Instructions ?Recorded ?Last Taken ?Type gabapentin 300 mg capsule 300 mg PO QHS 09/10/23 Unknown History losartan 100 mg tablet 100 mg PO QHS 09/10/23 Unknown History rosuvastatin 40 mg tablet 40 mg PO DAILY 09/10/23 Unknown History Allergy/AdvReac Type Severity Reaction Status Date / Time No Known Allergies Allergy Verified 09/10/23 15:59 Social History Smoking Status: Former smoker ROS ROS ED ROS Narrative Generalized fatigue Review of Systems ROS Unobtainable: other Constitutional Constitutional ED: Reports lethargy; Denies chills, fever(s), sweats or weight loss Eyes Eyes: Denies blurry vision, change in vision or diplopia ENT ENT ED: Denies rhinorrhea or sore throat Cardiovascular Cardiovascular: Reports chest pain; Denies orthopnea or racing heartbeat Respiratory/Chest Respiratory/Chest: Denies cough, dyspnea, dyspnea on exertion, orthopnea or sputum Gastrointestinal Gastrointestinal: Denies abdominal pain, diarrhea, nausea or vomiting Genitourinary Genitourinary ED: Denies dysuria, hematuria or urinary frequency Musculoskeletal Musculoskeletal: Denies arthralgias, back pain, myalgias or neck pain Integumentary Denies abscess, Abrasions or rash Neurologic Neurologic: Denies headache(s) or weakness Psychiatric Psychiatric: Denies anxiety, depression or suicidal thoughts Endocrine Endocrinology: Denies polydipsia, polyphagia or polyuria Hematologic/Lymphatic Hematologic/Lymphatic: Denies easy bleeding, easy bruising or lymphadenopathy Allergic/Immunologic Allergic/Immunologic ED: Denies mouth swelling, tongue swelling or urticaria EXAM Physical Exam Const Vital Signs: 09/10/23 16:00 09/10/23 16:30 09/10/23 16:45 Temperature 96.2 F L Temperature Source Temporal Pulse Rate 70 Respiratory Rate 18 Respiratory Effort Respiratory Pattern Blood Pressure 163/109 H 130/95 H 142/98 H Blood Pressure Mean 127 106 112 Pulse Ox 97 Oxygen Delivery Method Room Air 09/10/23 17:00 09/10/23 17:11 09/10/23 17:15 Temperature Temperature Source Pulse Rate 65 Respiratory Rate 24 H Respiratory Effort Normal Non-Labored Respiratory Pattern Normal Blood Pressure 146/95 H 140/108 H Blood Pressure Mean 112 118 Pulse Ox 97 Oxygen Delivery Method Room Air 09/10/23 17:30 09/10/23 17:45 Temperature Temperature Source Pulse Rate 66 Respiratory Rate 17 Respiratory Effort Respiratory Pattern Blood Pressure 145/93 H 149/89 H Blood Pressure Mean 110 109 Pulse Ox 97 Oxygen Delivery Method Room Air Positive well nourished and well developed General Appearance ED: well developed and NAD HEENT Reports TM's clear and moist mucous membranes normocephalic and atraumatic; Negative for trauma or tenderness Tympanic Membrane ED: Yes TM's clear Eyes PERRL and EOMs intact bilaterally General Eye ED: Negative for pale conjunctiva or scleral icterus Neck no lymphadenopathy, supple and no JVD General: Negative for tenderness Chest Wall inspection of chest normal and palpation of chest normal Chest: Negative for tenderness Resp normal respiratory effort and clear to auscultation bilaterally Effort and Inspection: Negative for respiratory distress or pain with movement Auscultation: Negative for rhonchi, wheezes or diminished lung sounds Cardio regular rate, regular rhythm, S1 normal heart sound and S2 normal heart sound Peripheral Pulses: pulses 2+ throughout GI normal to inspection, nondistended, normoactive bowel sounds, soft to palpation, non-tender, non-distended and no masses Back/Spine no CVA tenderness and no thoracic nor lumbar tenderness Extremity normal to inspection General Extremety ED: Negative for edema General Extremity: Negative for edema Neuro oriented x3, CN's II-XII intact bilaterally, no sensory deficits noted and gait normal Sensorium / Orientation: awake, alert, oriented to person, oriented to place and oriented to time Motor Exam: strength 5/5 throughout and strength abnormal Psych mental status grossly normal Skin no rashes or lesions noted and no wounds MDM MDM MDM Narrative Medical decision making narrative: Patient presents with concern for hypertension. Complains of some fatigue and some nondescript chest discomfort that is fleeting off-and-on without exertion. IV line established. EKG obtained arrival showed a sinus rhythm with ventricular rate of 69 bpm with incomplete right bundle branch block. CBC with differential obtained for white count of 12.7 with hemoglobin 14.6 and platelet count of 189. Chemistries unremarkable. BUN 19 and creatinine 1.07. Troponin was 11. During observation in the emergency department blood pressures improved to 140s over 80s. This point discussed case with his primary care physician Dr. Harvey who did not want to make any adjustments in his medications at this time but wants to see him in the office in 2 days at 9 AM. Discussed this with the patient she is he is comfortable with the plan. This point he will be discharged to home in stable condition. Lab Data Attestation: I reviewed the patient's lab results. Labs: Laboratory Results - last 24 hr 09/10/23 16:20 WBC 12.7 H RBC 5.00 Hgb 14.6 Hct 43.6 MCV 87.2 MCH 29.2 MCHC 33.5 RDW Std Deviation 42.0 RDW Coeff of Santhosh 13.2 Plt Count 189 MPV 10.4 Immature Gran % (Auto) 0.600 Neut % (Auto) 80.2 H Lymph % (Auto) 10.6 L [place] % (Auto) 5.9 Eos % (Auto) 2.2 Baso % (Auto) 0.5 Absolute Neuts (auto) 10.2 H Absolute Lymphs (auto) 1.34 Nucleated RBC % 0 Sodium 139 Potassium 3.8 Chloride 108 H Carbon Dioxide 25.0 Anion Gap 6 BUN 19 H Creatinine 1.07 Estim Creat Clear Calc 80.60 Est GFR (MDRD) Af Amer 89 Est GFR (MDRD) Non-Af 74 BUN/Creatinine Ratio 17.8 Glucose 96 Calcium 8.8 Troponin I High Sens 11 EKG Initial EKG: Attestation: I personally reviewed and interpreted this EKG as follows: Comments: Sinus rhythm with ventricular rate of 69 bpm with incomplete right bundle branch block Discharge Plan Triage Chief Complaint: Hypertension ED Provider: Cristobal Sanon Dx/Rx/DC Orders Clinical Impression: Hypertension Instructions: Hypertension Dc Prescriptions: No Action gabapentin 300 mg capsule 300 mg PO QHS losartan 100 mg tablet 100 mg PO QHS rosuvastatin 40 mg tablet 40 mg PO DAILY Primary Care Provider: Ike Harvey Chi Referrals: Ike Harvey Chi, MD [Primary Care Provider] - 2 Days Activity Restrictions/Additional Instructions: See Dr. Harvey at 9 AM on Tuesday. Print Language: Tanzanian Disposition Disposition: Home, Self Care
[2023-09-10 16:31] LABS: Absolute Lymphocyte Count 1.34 X10^3/uL (0.83-4.51); Absolute Neutrophil Count 10.2 X10^3/uL (2.0-7.7); Basophil# 0.06 X10^3/uL; Basophil% 0.5 % (0-1); Eosinophil# 0.28 X10^3/uL; Eosinophils% 2.2 % (0-5); Hematocrit 43.6 % (40-54); Hemoglobin 14.6 g/dL (13.0-16.5); Lymphocyte # 1.34 X10^3/ul (0.83-4.51); Lymphocyte % 10.6 % (19-41); Mean Corp Hgb Conc 33.5 g/dL (32-36); Mean Corpuscular Hgb 29.2 pg (27.0-32.0); Mean Corpuscular Volume 87.2 fL (80-94); Mean Platelet Vol. 10.4 fl (6.2-12.0); Monocyte# 0.75 X10^3/uL; Monocyte% 5.9 % (0-10); NRBC Flagged by Analyzer 0 % (0-5); Neutrophil # 10.18 X10^3/uL (2.7-7.7); Neutrophil % 80.2 % (47-70); Platelet Count 189 K/mm3 (150-450); RBC Distribution Width CV 13.2 % (11.6-14.6); White Blood Count 12.7 K/mm3 (4.4-11.0)
[2023-09-10 16:49] LABS: Anion Gap 6 (5-15); BUN 19 mg/dL (7-18); BUN/Creat Ratio 17.8 RATIO (10-20); Calcium,Total 8.8 mg/dL (8.5-10.1); Chloride 108 mmol/L (98-107); Creatinine, Serum 1.07 mg/dL (0.70-1.30); EST Glomerular Filtration Rate 74 mL/min (>60); Est Glom Filt Rate - Afr Amer 89 mL/min (>60); Glucose 96 mg/dL (74-106); Potassium 3.8 mmol/L (3.5-5.1); Sodium Level 139 mmol/L (136-145); Troponin-I HS 11 pg/mL (3.0-78.0)
[2023-09-10] MEDS: 0.9% Normal Saline (1000mL) 1,000 ML 150 ML IV (17:13)
== END 2023-09-10 18:49 | disposition home or self-care (01) ==
PROVIDERS: Emergency Provider Emergency Medicine; PCP Family Medicine Geriatric Medicine; Visit Provider Emergency Medicine
DX: I10 Essential (primary) hypertension (principal); E78.00 Pure hypercholesterolemia, unspecified; Z79.899 Other long term (current) drug therapy; Z87.891 Personal history of nicotine dependence
CPT/HCPCS: 80048; 84484; 85025; 93005; 96360; 96361; 99283; J7030; A4216

== ENCOUNTER → 2023-09-16 | Outpatient (CLI) | payer OTHER, SELFPAY ==
--- NOTE | 2023-09-16 12:54 | ECHOD_ITS ---
Reason For Study: CHEST PAIN Procedure This was a 2D Doppler, Color Flow transthoracic echocardiogram. Myocardial strain analysis was performed in this exam to aid in the assessment of cardiac function. Exam performed in department. Left Ventricle Normal LV size. Moderate concentric left ventricular hypertrophy. The left ventricular ejection fraction is 70 %. No evidence for diastolic dysfunction. Right Ventricle Normal right ventricle. Atria The left and right atria are normal. Mitral Valve Normal mitral valve. Tricuspid Valve Unable to estimate RV systolic pressure due to inadequate jet, pulmonary artery pressure probably normal. Aortic Valve Moderate diffuse aortic valve calcification. Mild aortic stenosis. Pulmonic Valve The pulmonic valve is not well visualized. Great Vessels Moderately dilated aortic root. MMode/2D Measurements & Calculations LVIDd: 4.6 cm IVSd: 1.1 cm LVOT diam: 2.1 cm LVIDs: 2.1 cm LVPWd: 1.5 cm LVOT area: 3.5 cm2 RVDd: 3.3 cm FS: 55.3 % LAV(MOD-bp): 56.8 ml LVAd ap4: 29.9 cm2 SV(MOD-sp4): 57.3 ml LAV(MOD-bp) Indexed: 26.5 ml/m2 LVLd ap4: 9.1 cm LAV(MOD-sp2): 55.5 ml EDV(MOD-sp4): 83.2 ml LAV(MOD-sp4): 53.8 ml EDV(sp4-el): 83.2 ml LVAs ap4: 15.1 cm2 LVLs ap4: 7.6 cm ESV(MOD-sp4): 25.9 ml ESV(sp4-el): 25.6 ml EF(MOD-sp4): 68.8 % EF(sp4-el): 69.3 % SV(sp4-el): 57.7 ml LA dimension(2D): 3.7 cm LA A4 area: 19.5 cm2 RA A4 area: 16.8 cm2 TAPSE: 2.0 cm Time Measurements MV dec time: 0.28 sec Doppler Measurements & Calculations MV E max ulices: 68.2 cm/sec Lat Peak E' Ulices: 11.6 cm/sec Med Peak E' Ulices: 7.7 cm/sec MV A max ulices: 67.8 cm/sec E/E' lat: 5.9 E/E' med: 8.8 MV E/A: 1.0 MV V2 max: 74.8 cm/sec Ao V2 max: 319.9 cm/sec MV max P.2 mmHg MV dec slope: 244.2 cm/sec2 Ao max P.9 mmHg MV V2 mean: 49.4 cm/sec Ao V2 mean: 214.9 cm/sec MV mean P.1 mmHg Ao mean P.1 mmHg MV V2 VTI: 21.9 cm Ao V2 VTI: 64.1 cm PA V2 max: 128.6 cm/sec PA V2 mean: 90.6 cm/sec ECHO/Echo Complete Interpretation Summary Moderate concentric left ventricular hypertrophy. The left ventricular ejection fraction is 70 %. Moderate diffuse aortic valve calcification. Mild aortic stenosis. Moderately dilated aortic root. Ordering Physician: Ike Harvey Chi Referring Physician: Ike Harvey Chi Performed By: Eva Moon RCS
== END | disposition home or self-care (01) ==
LOC: CVS 12:51
PROVIDERS: PCP Family Medicine Geriatric Medicine; Referring Provider Family Medicine Geriatric Medicine; Visit Provider Family Medicine Geriatric Medicine
DX: R07.9 Chest pain, unspecified (principal); R01.1 Cardiac murmur, unspecified
CPT/HCPCS: 93306

== ENCOUNTER → 2023-10-18 | Outpatient (CLI) | payer OTHER, SELFPAY ==
--- NOTE | 2023-10-18 17:46 | CT_ITS ---
STUDY: LOW DOSE CT LUNG CANCER SCREENING REASON FOR EXAM: Male, 63 years old. History of nicotine dependence. Patient smoked 1 pack per day for 45 years. COPD. RADIATION DOSAGE (If Supplied By Facility): CTDIvol = ( 4.02 ) mGy, DLP = ( 143.96 ) mGycm TECHNIQUE: No contrast was administered. Low dose technique was utilized (average mAS-38 and kVp 120). 1.25 mm axial source images with a slice interval of 1.25-mm were reconstructed in lung windows. 2.5 mm axial source images with a slice interval of 2.5-mm were reconstructed in lung windows. 5.0 mm axial source images with a slice interval of 5.0-mm were reconstructed in soft tissue windows. COMPARISON: Comparison is made with prior study dated January 05, 2022. NODULES: No suspicious nodules are seen. Emphysema: Hyperinflation. Emphysematous changes with centrilobular emphysema. Scarring at the lung bases more pronounced in the posterior aspect of the lingular segment of the left upper lobe abutting the left major fissure. Endobronchial lesion: Unremarkable Aorta: Atherosclerotic plaque formation of the aortic arch. CORONARY ARTERIES: Coronary artery calcification is seen. Heart: Unremarkable Pulmonary artery: Remarkable Mediastinal nodes: Calcified mediastinal lymph nodes. Other chest and abdominal findings: CT/Low Dose CT Lung Screening IMPRESSION: Lung-RADS category 2 - Continue annual screening with LDCT in 12 months. IMPORTANT NOTES FOR USE: ACR Lung-RADS Version 1.1 Assessment Categories Release Date: 2018 Category: Coded 0-4 bases on nodule(s) with highest degree of suspicion. Negative screen is defined as categories 1 and 2; a positive screen is defined as categories 3 and 4. Category 3 and 4A nodules that are unchanged on interval CT should be coded as category 2, and individuals returned to screening in 12 months. Category 4X: Category 3 or 4 nodules with additional imaging findings that increase the suspicion of lung cancer, such as spiculation, GGN that doubles in size in 1 year, enlarged lymph notes, etc. Category Modifiers: S (significant finding unrelated to lung cancer) Electronically Signed: Tomy Valverde MD at 16:00 EDT ,
== END | disposition home or self-care (01) ==
PROVIDERS: PCP Family Medicine Geriatric Medicine; Referring Provider Internal Medicine Pulmonary Disease; Visit Provider Internal Medicine Pulmonary Disease
DX: Z87.891 Personal history of nicotine dependence (principal)
CPT/HCPCS: 71271

== ENCOUNTER → 2023-12-15 | Outpatient (CLI) | payer OTHER, SELFPAY ==
--- NOTE | 2023-12-15 14:07 | STRESSREP ---
Stress Test Report Exercise stress test. 63-year-old man with a history of chest pain Stress protocol: Resting EKG demonstrates sinus bradycardia with a rate of 54 bpm resting blood pressure is 122/92 mmHg. The patient exercised according to the regular Naeem protocol for a total duration of 7 minutes attaining a maximum heart rate of 136 bpm which was 87% of maximum predicted heart rate; the maximum workload was 10.1 metabolic equivalents. At rest there were no ST or T wave changes noted to suggest ischemia and at peak exercise upsloping ST changes only were noted which did not meet the criteria for ischemia. No clinical angina was noted the test was terminated due to the target heart rate being achieved/fatigue. The peak blood pressure was 182/106 mmHg. Rate-pressure product was 22,900. Conclusion: Exercise stress test with no EKG criteria for ischemia at a high workload No clinical angina noted
== END | disposition home or self-care (01) ==
LOC: CVS 09:44
PROVIDERS: PCP Family Medicine Geriatric Medicine; Referring Provider Nurse Practitioner Family; Visit Provider Nurse Practitioner Family
DX: R07.9 Chest pain, unspecified (principal); I35.0 Nonrheumatic aortic (valve) stenosis; I10 Essential (primary) hypertension; I77.810 Thoracic aortic ectasia; E78.5 Hyperlipidemia, unspecified
CPT/HCPCS: 93017

== ENCOUNTER → 2024-01-19 | Outpatient (CLI) | payer OTHER, SELFPAY ==
[2024-01-19 09:13] LABS: Absolute Lymphocyte Count 1.83 X10^3/uL (0.83-4.51); Absolute Neutrophil Count 7.6 X10^3/uL (2.0-7.7); Basophil# 0.09 X10^3/uL; Basophil% 0.8 % (0-1); Eosinophil# 0.26 X10^3/uL; Eosinophils% 2.4 % (0-5); Hematocrit 42.7 % (40-54); Hemoglobin 14.6 g/dL (13.0-16.5); Lymphocyte # 1.83 X10^3/ul (0.83-4.51); Lymphocyte % 16.9 % (19-41); Mean Corp Hgb Conc 34.2 g/dL (32-36); Mean Corpuscular Hgb 29.9 pg (27.0-32.0); Mean Corpuscular Volume 87.3 fL (80-94); Mean Platelet Vol. 10.4 fl (6.2-12.0); Monocyte# 0.88 X10^3/uL; Monocyte% 8.1 % (0-10); NRBC Flagged by Analyzer 0 % (0-5); Neutrophil # 7.63 X10^3/uL (2.7-7.7); Neutrophil % 70.2 % (47-70); Platelet Count 210 K/mm3 (150-450); RBC Distribution Width CV 13.3 % (11.6-14.6); RBC Distribution Width SD 42.3 fl (35.1-43.9); Red Blood Count 4.89 M/mm3 (4.6-6.2); White Blood Count 10.9 K/mm3 (4.4-11.0)
[2024-01-19 09:57] LABS: AST(SGOT) 32 U/L (15-37); Alanine Aminotransfer ALT/SGPT 46 U/L (16-61); Albumin, Serum 3.6 g/dL (3.2-5.0); Alkaline Phosphatase 85 U/L (45-117); Anion Gap 8 (5-15); BUN 18 mg/dL (7-18); BUN/Creat Ratio 16.7 RATIO (10-20); Calcium,Total 9.1 mg/dL (8.5-10.1); Chloride 106 mmol/L (98-107); Cholesterol 124 mg/dL (200); Creatinine, Serum 1.08 mg/dL (0.70-1.30); EST Glomerular Filtration Rate 73 mL/min (>60); Est Glom Filt Rate - Afr Amer 88 mL/min (>60); Globulin 3.7 g/dL (2.2-4.2); Glucose 142 mg/dL (74-106); High Density Lipoprotein 45 mg/dL; Potassium 4.5 mmol/L (3.5-5.1); Protein, Total 7.3 g/dL (6.4-8.2); Sodium Level 138 mmol/L (136-145); Triglycerides 176 mg/dL; Very Low Density Lipoprotein 35 mg/dL (5-40)
[2024-01-19 15:20] LABS: Hemoglobin A1c 6.3 % (3.8-5.6)
== END | disposition home or self-care (01) ==
LOC: LAB 08:47
PROVIDERS: PCP Family Medicine Geriatric Medicine; Referring Provider Family Medicine Geriatric Medicine; Visit Provider Family Medicine Geriatric Medicine
DX: I10 Essential (primary) hypertension (principal); E78.5 Hyperlipidemia, unspecified; R73.09 Other abnormal glucose
CPT/HCPCS: 36415; 80053; 80061; 83036; 84443; 85025

== ENCOUNTER → 2024-07-18 | Outpatient (CLI) | payer MEDICARE, SELFPAY ==
[2024-07-18 10:46] LABS: Absolute Lymphocyte Count 1.66 X10^3/uL (0.83-4.51); Absolute Neutrophil Count 6.9 X10^3/uL (2.0-7.7); Basophil# 0.08 X10^3/uL; Basophil% 0.8 % (0-1); Eosinophil# 0.24 X10^3/uL; Eosinophils% 2.5 % (0-5); Hematocrit 43.7 % (40-54); Hemoglobin 14.8 g/dL (13.0-16.5); Lymphocyte # 1.66 X10^3/ul (0.83-4.51); Lymphocyte % 17.1 % (19-41); Mean Corp Hgb Conc 33.9 g/dL (32-36); Mean Corpuscular Hgb 29.6 pg (27.0-32.0); Mean Corpuscular Volume 87.4 fL (80-94); Mean Platelet Vol. 10.6 fl (6.2-12.0); Monocyte# 0.78 X10^3/uL; Monocyte% 8.1 % (0-10); NRBC Flagged by Analyzer 0 % (0-5); Neutrophil # 6.87 X10^3/uL (2.7-7.7); Platelet Count 215 K/mm3 (150-450); RBC Distribution Width CV 13.8 % (11.6-14.6); RBC Distribution Width SD 44.2 fl (35.1-43.9); White Blood Count 9.7 K/mm3 (4.4-11.0)
[2024-07-18 12:08] LABS: ALB/GLOB Ratio 1.7 RATIO (0.9-2.4); AST(SGOT) 32 U/L (<=37); Alanine Aminotransfer ALT/SGPT 37 U/L (<=46); Albumin, Serum 4.6 g/dL (3.4-4.8); Alkaline Phosphatase 78 U/L (40-129); Anion Gap 12 (5-15); BUN 17 mg/dL (4-19); BUN/Creat Ratio 17.7 RATIO (10-20); Calcium,Total 9.3 mg/dL (7.6-11.0); Carbon Dioxide 22.7 mmol/L (21.0-32.0); Chloride 102 mmol/L (98-108); Creatinine, Serum 0.98 mg/dL (0.70-1.20); EST Glomerular Filtration Rate 85 (>60); Globulin 2.7 g/dL (2.2-4.2); Glucose 111 mg/dL (70-99); Potassium 4.2 mmol/L (3.3-5.1); Protein, Total 7.2 g/dL (5.9-8.4); Sodium Level 137 mmol/L (133-145); Total Bilirubin 0.59 mg/dL (0.00-1.30); Vitamin D,25 Hydroxy 33.8 ng/mL (30-100)
== END | disposition home or self-care (01) ==
PROVIDERS: PCP Family Medicine Geriatric Medicine; Referring Provider Family Medicine Geriatric Medicine; Visit Provider Family Medicine Geriatric Medicine
DX: I10 Essential (primary) hypertension (principal); E55.9 Vitamin D deficiency, unspecified; Z12.5 Encounter for screening for malignant neoplasm of prostate
CPT/HCPCS: 36415; 80053; 82306; 84153; 84443; 85025; G0103

== ENCOUNTER → 2024-10-30 | Outpatient (CLI) | payer MEDICARE, SELFPAY ==
--- NOTE | 2024-10-30 15:11 | RAD_ITS ---
PROCEDURE: SHOULDER MIN 2 VIEWS 10/30/2024 REASON FOR EXAM: RIGHT SHOULDER PAIN TECHNIQUE: Procedure Code: RADSH Modality: DX Procedure: SHOULDER MIN 2 VIEWS COMPARISON: none RAD/Shoulder min 2 Views IMPRESSION: No acute fracture or dislocations. Mild degenerative changes of the right shou lder. No acute soft tissue abnormalities. No radiographic foreign body. Reading Location: [facility]
--- NOTE | 2024-10-30 15:11 | RAD_ITS ---
PROCEDURE: HIP, UNI W/ PELVIS 2-3 VIEWS 10/30/2024 REASON FOR EXAM: LEFT HIP PAIN/LT SIDED SCIATICA/LOW BACK PAIN TECHNIQUE: Procedure Code: RADHP Modality: DX Procedure: HIP, UNI W/ PELVIS 2-3 VIEWS Laterality: Left COMPARISON: None FINDINGS: Bones: No fracture is seen. Joints: Moderate degree of joint space narrowing involving both hip joints. Degenerative changes of the symphysis pubis. Soft tissues: Calcified phleboliths in the right hemipelvis. Other: RAD/HIP, UNI W/ Pelvis 2-3 Views IMPRESSION: Osteoarthritis of both hip joints. Degenerative changes of the symphysis pubis. Reading Location: [id number]
--- NOTE | 2024-10-30 15:11 | RAD_ITS ---
PROCEDURE: L/S SPINE MIN 4 VIEWS 10/30/2024 REASON FOR EXAM: LOW BACK PAIN TECHNIQUE: Procedure Code: RADSPLS Modality: DX Procedure: L/S SPINE MIN 4 VIEWS COMPARISON: None FINDINGS: Curvature: Levoconvex scoliosis. Other findings: Multilevel spondylosis and disc space narrowing. Facet joint osteoarthritis. Other: Calcification of the abdominal aorta. RAD/L/S Spine Min 4 Views IMPRESSION: Levoconvex scoliosis. Multilevel disc space narrowing and spondylosis with facet joint osteoarthritis . Calcification of the abdominal aorta. Reading [id number]
== END | disposition home or self-care (01) ==
PROVIDERS: PCP Family Medicine Geriatric Medicine; Referring Provider Family Medicine Geriatric Medicine; Visit Provider Family Medicine Geriatric Medicine
DX: M25.511 Pain in right shoulder (principal); M54.50 Low back pain, unspecified; M25.552 Pain in left hip; M54.32 Sciatica, left side
CPT/HCPCS: 72110; 73030; 73502

== ENCOUNTER → 2024-12-04 | Outpatient (CLI) | payer MEDICARE, SELFPAY ==
--- NOTE | 2024-12-04 17:41 | CT_ITS ---
EXAM: CT Angiography Chest Without and With Intravenous Contrast CLINICAL INDICATION: EVALUATE AORTIC ROOT SIZE TECHNIQUE: Axial computed tomographic angiography images of the chest without and with intravenous contrast. This CT exam was performed using one or more of the following dose reduction techniques: automated exposure control, adjustment of the mA and/or kV according to patient size, and/or use of iterative reconstruction technique. MIP reconstructed images were created and reviewed. COMPARISON: No relevant prior studies available. FINDINGS: PULMONARY ARTERIES: Unremarkable. No pulmonary embolism. AORTA: The aortic root measures up to 3.9 cm in diameter. No thoracic aortic aneurysm. LUNGS AND PLEURAL SPACES: Emphysematous lung changes with ground-glass attenuation, likely air trapping. No mass. No consolidation. No significant effusion. HEART: Unremarkable. No cardiomegaly. No significant pericardial effusion. No evidence of RV dysfunction. MEDIASTINUM: Prominent mediastinal lymph nodes with calcified lymph nodes, likely a sequela of prior granulomatous disease. BONES/JOINTS: No acute fracture. No dislocation. SOFT TISSUES: Unremarkable. LYMPH NODES: See above. CT/CTA Chest W/WO Contrast IMPRESSION: 1. The aortic root measures up to 3.9 cm in diameter. 2. Prominent mediastinal lymph nodes with calcified lymph nodes, likely a sequ lilian of prior granulomatous disease. 3. Emphysematous lung changes with ground-glass attenuation, likely air trappi ng. Reading Location: [id number]
== END | disposition home or self-care (01) ==
LOC: CT 17:43
PROVIDERS: PCP Family Medicine Geriatric Medicine; Referring Provider Nurse Practitioner Family; Visit Provider Nurse Practitioner Family
DX: I77.810 Thoracic aortic ectasia (principal); I35.0 Nonrheumatic aortic (valve) stenosis
CPT/HCPCS: 71275; Q9967

== ENCOUNTER → 2024-12-17 | Outpatient (CLI) | payer MEDICARE, SELFPAY ==
--- NOTE | 2024-12-17 07:45 | ECHOD_ITS ---
Reason For Study Reason For Study: Aortic Stenosis Procedure This was a 2D Doppler, Color Flow transthoracic echocardiogram. Exam performed in department. Left Ventricle Normal LV size. The left ventricular ejection fraction is 70 %. No regional wall motion abnormalities noted. Right Ventricle Normal RV size. Normal systolic function. Atria Normal left atrium. Normal right atrium. Mitral Valve Normal mitral valve. Tricuspid Valve Normal tricuspid valve. Aortic Valve Trisinus/trileaflet aortic valve. Moderate focal aortic valve calcification. Peak aortic valve gradient 44 mmHg. Mean aortic valve gradient 28 mmHg. Mild to moderate aortic stenosis. Pulmonic Valve Normal pulmonic valve. Great Vessels Mild to moderately dilated aortic root. The pulmonary artery is normal size. Inferior vena cava collapse with respiration. Pericardium/Pleural No pericardial effusion. MMode/2D Measurements & Calculations LVIDd: 4.6 cm IVSd: 1.0 cm LVOT diam: 2.1 cm LVIDs: 2.8 cm LVPWd: 1.1 cm LVOT area: 3.3 cm2 RVDd: 4.3 cm FS: 38.8 % Ao root diam: 4.5 cm asc Aorta Diam: 4.5 cm LAV(MOD- bp): 56.2 ml LAV(MOD- bp) Indexed: 26.4 ml/m2 LAV(MOD- sp2): 56.2 ml LAV(MOD- sp4): 55.5 ml SV(MOD-sp4): 71.2 ml SV(sp4- el): 78.8 ml LVAd ap4: 33.0 cm2 LVLd ap4: 8.3 cm SI(MOD-sp4): 33.5 ml/m2 EDV(MOD-sp4): 103.3 ml EDV(sp4-el): 111.3 ml LVAs ap4: 16.2 cm2 LVLs ap4: 6.8 cm ESV(MOD-sp4): 32.1 ml ESV(sp4-el): 32.4 ml EF(MOD-sp4): 68.9 % EF(sp4-el): 70.8 % LA A4 area: 19.5 cm2 LA dimension(2D): 4.3 cm RA A4 area: 20.6 cm2 TAPSE: 2.3 cm Time Measurements MV dec time: 0.33 sec Doppler Measurements & Calculations MV E max ulices: 54.7 cm/sec Lat Peak E' Ulices: 13.3 cm/sec Med Peak E' Ulices: 10.3 cm/sec MV A max ulices: 57.5 cm/sec E/E' lat: 4.1 E/E' med: 5.3 MV E/A: 0.95 MV V2 max: 66.3 cm/sec MV P1/2t max ulices: 66.3 cm/sec Ao V2 max: 331.9 cm/sec MV max P.8 mmHg MV P1/2t: 100.3 msec Ao max P.1 mmHg MV V2 mean: 33.7 cm/sec Ao V2 mean: 250.0 cm/sec MV mean P.56 mmHg MV dec slope: 193.7 cm/sec2 Ao mean P.5 mmHg MV V2 VTI: 30.4 cm MVA(P1/2t): 2.2 cm2 Ao V2 VTI: 84.6 cm AV (velocity ratio): 0.32 MVA(VTI): 3.0 cm2 DOC(I,D): 1.1 cm2 DOC(V,D): 1.0 cm2 LV V1 max: 99.6 cm/sec SV(LVOT): 91.9 ml PA V2 max: 71.7 cm/sec LV V1 max P.0 mmHg LV V1 mean P.7 mmHg LV V1 mean: 79.1 cm/sec LV V1 VTI: 27.5 cm PI end-d ulices: 97.8 cm/sec ECHO/Echo Complete Interpretation Summary Normal LV size. The left ventricular ejection fraction is 70 %. Mild to moderately dilated aortic root. Moderate focal aortic valve calcification. Mean aortic valve gradient 28 mmHg. Mild to moderate aortic stenosis. Ordering Physician: Jose Alejandro Ornelas Referring Physician: Jose Alejandro Ornelas Performed By: Tam Carter RDCS
--- OUTSIDE RECORDS SUMMARY | 2024-12-17 07:48 | XMS RPT_ITS | CCD ---
Author Organization [facility] Care Team Providers Care Wool Broker Name Role Phone Rosales Orellana Primary Care Provider REYNA [facility] Primary Care Unavailable REYNA, [facility] Referring Unavailable REYNA, [facility] Primary Care Unavailable [facility] Referring Unavailable REYNA, [facility] Primary Care Unavailable KIRSTEN RAMOS Admitting Unavailable KIRSTEN RAMOS Attending Unavailable KIRSTEN RAMOS Referring Unavailable Reyna LR [facility] Primary Care Provider [phone] Reyna LR [facility] Primary Care Provider [phone] REYNA, [facility] Primary Care Unavailable [facility], [facility] Referring Unavailable [facility] Referring Unavailable [facility] Primary Care Unavailable Reyna LR [facility] Primary Care Provider [phone] Dr. Ike Harvey Chi Primary Care Provider Dr. Arya Jarvis Attending Provider Dr. Ike Harvey MD, Chi Primary Care Provider Dr. Ike Harvey MD, Chi Referring Provider Johnson CARDIOLOGY PHYSICIAN-Jose Alejandro Hayes Attending Provider Dr. Ike Harvey MD, Chi Attending Provider Dr. Ike Harvey MD, Chi Primary Care Physician Dr. Ike Harvey MD, Chi Attending Physician Dr. Ike Harvey MD, Chi Referring Provider Johnson CARDIOLOGY PHYSICIAN-CJose Alejandro Attending Physician [phone] Jose Alejandro Ornelas NP Referring Unavailable Wes, Ike Chi Primary Care Unavailable Mark Rose Attending Unavailable Roof CARDIOLOGY PHYSICIAN, Jose Alejandro Ryan Consulting Unavailable Wes, Ike Chi Primary Care Unavailable Wes, Ike Chi Referring Unavailable Roof CARDIOLOGY PHYSICIAN, Jose Alejandro Ryan Attending Unavailable Wes, Ike Chi Referring Unavailable Wes, Ike Chi Primary Care Unavailable Roof CARDIOLOGY PHYSICIAN, Jose Alejandro Ryan Attending Unavailable Roof CARDIOLOGY PHYSICIAN, Jose Alejandro Ryan Referring Unavailable Wes, Ike Chi Primary Care Unavailable Roof CARDIOLOGY PHYSICIAN, Jose Alejandro Ryan Attending Unavailable Wes, Ike Chi Attending Unavailable Wes, Ike Chi Referring Unavailable Wse, Ike Chi Primary Care Unavailable Wes, Ike Chi Attending Unavailable Wes, Ike Chi Referring Unavailable Wes, Ike Chi Primary Care Unavailable Roof CARDIOLOGY PHYSICIAN, Jose Alejandro Ryan Attending Unavailable Wes, Ike Chi Primary Care Unavailable Roof CARDIOLOGY PHYSICIAN, Jose Alejandro Ryan Referring Unavailable Roof CARDIOLOGY PHYSICIAN, Jose Alejandro Ryan Referring Unavailable Roof CARDIOLOGY PHYSICIAN, Jose Alejandro Ryan Attending Unavailable Wes, Ike Chi Primary Care Unavailable Wes, Ike Chi Primary Care Unavailable Wes, Ike Chi Attending Unavailable Wes, Ike Chi Referring Unavailable Medications Current Medications Medication Drug Class(es) Dates Sig (Normalized) Sig (Original) amLODIPine 10 mg oral tablet (7 sources) Dihydropyridine Calcium Channel Michael Start: 11-26-2024 take 1 tablet by mouth once daily Start: 11-26-2024 take 1 tablet by eddie th once daily Start: 11-19-2024 End: 11-26-2024 take 2 tablets by mouth once daily Amlodipine 5 mg tablet Discontinued 10 mg PO DAILY November 19, 2024 9:00am November 26, 2024 10:24am Start: 10-11-2023 End: 11-19-2024 take 1 tablet by mouth once daily Amlodipine 5 mg tablet Discontinued 5 mg PO DAILY October 11, 2023 12:00am November 19, 2024 9:00am atorvastatin 10 mg oral tablet (1 source) HMG-CoA Reductase Inhibitor Start: 12-26-2018 take 1 tablet by mouth once daily atorvastatin (LIPITOR) 10 MG tablet Indications: Mixed hyperlipidemia Take 1 tablet by mouth daily 30 tablet 5 12/26/2018 Active calcium chloride 0.0014 meq/ml / potassium chloride 0.004 meq/ml / sodium chloride 0.103 meq/ml / sodium lactate 0.028 meq/ml injectable solution (1 source) Start: 04-04-2019 lactated ringers infusion ciprofloxacin 500 mg oral tablet (1 source) Quinolone Antimicrobial Start: 01-17-2022 take 1 tablet by mouth twice daily Ciprofloxacin Hcl (Cipro) 500 mg tablet Active 500 MG PO TWICE A DAY January 17, 2022 12:00am citalopram 10 mg oral tablet (5 sources) Serotonin Reuptake Inhibitor Start: 11-19-2024 take 2 tablets by mouth once daily Start: 11-19-2024 take 2 tablets by mo [facility] once daily Start: 10-11-2023 End: 11-19-2024 take 1 tablet by mouth once daily Citalopram 10 mg tablet Discontinued 10 mg PO DAILY October 11, 2023 12:00am November 19, 2024 8:30am 1 ml diphenhydrAMINE hydrochloride 50 mg/ml cartridge (1 source) Histamine-1 Receptor Antagonist Start: 04-04-2019 End: 04-04-2019 12.5 mg, Intravenous, ONCE PRN, Itching, Starting 04/04/19 at 1213, For 1 dose, PACU only 2 ml fentaNYL 0.05 mg/ml injection (1 source) Opioid Agonist Start: 04-04-2019 50 mcg, Intravenous, EVERY 10 MIN PRN, Pain Moderate (4-6), Starting 04/04/19 at 1213, For 4 doses Phase I - Initial therapy for moderate pain. PACU only gabapentin 300 mg oral capsule (3 sources) Anti-epileptic Agent Start: 09-10-2023 take 1 capsule by mouth at bedtime 1 ml HYDROmorphone hydrochloride 2 mg/ml cartridge (1 source) Opioid Agonist Start: 04-04-2019 0.5 mg, Intravenous, EVERY 10 MIN PRN, Pain Severe (7-10), Starting 04/04/19 at 1213, For 4 doses Phase I - Initial therapy for severe pain. PACU only 10 ml lidocaine hydrochloride 10 mg/ml injection (1 source) Antiarrhythmic, Amide Local Anesthetic Start: 04-04-2019 End: 04-04-2019 lidocaine PF 1 % injection 1 mL losartan potassium 100 mg oral tablet (3 sources) Angiotensin 2 Receptor Michael Start: 09-10-2023 take 1 tablet by mouth at bedtime 1 ml meperidine hydrochloride 50 mg/ml injection (1 source) Opioid Agonist Start: 04-04-2019 12.5 mg, Intravenous, EVERY 5 MIN PRN, Shivering, , Starting 04/04/19 at 1213 May give every 5 minutes to max of 50mg. PACU only 2 ml metoclopramide 5 mg/ml prefilled syringe (1 source) Dopamine-2 Receptor Antagonist Start: 04-04-2019 End: 04-04-2019 10 mg, Intravenous, ONCE PRN, Nausea, Starting 04/04/19 at 1213, For 1 dose Secondary antiemetic therapy if not given intraoperatively. PACU only 1 ml promethazine hydrochloride 25 mg/ml injection (1 source) Phenothiazine Start: 04-04-2019 End: 04-04-2019 6.25 mg, Intravenous, ONCE PRN, Nausea, Starting 04/04/19 at 1213, For 1 dose Recommended route is IM. Ca ution if used IV:Check IV site for infiltrate prior to and during administration.&n bsp; Initial antiemetic therapy. For IV administration, dilute to 10ml with normal saline. Must be administered over at least 10 minutes. PACU only rosuvastatin calcium 40 mg oral tablet (14 sources) HMG-CoA Reductase Inhibitor Start: 09-10-2023 take 1 tablet by mouth once daily Start: 07-14-2022 End: 09-10-2023 take 1 tablet by mouth at bedtime Rosuvastatin 5 mg tablet Discontinued 5 mg PO AT BEDTIME July 14, 2022 12:00am September 10, 2023 3:59pm Start: 05-09-2020 take 1 tablet by eddie once daily rosuvastatin (CRESTOR) 5 MG tablet Indications: Mixed hyperlipidemia Take 1 tablet by mouth daily 30 tablet 5 05/09/2020 Active Start: 03-21-2020 take 1 tablet by eddie th three times weekly rosuvastatin (CRESTOR) 5 MG tablet Indications: Mixed hyperlipidemia Take 1 tablet by mouth three times a week (Tuesday, Tuesday, Tuesday) 12 tablet 1 03/21/2020 Active Start: 03-02-2019 take 1 tablet by eddie three times weekly rosuvastatin (CRESTOR) 10 MG tablet Indications: Mixed hyperlipidemia Take 1 tablet by mouth three times a week 12 tablet 5 03/02/2019 Active 3 ml sodium chloride 9 mg/ml injection (2 sources) Start: 04-04-2019 sodium chlorid e flush 0.9 % injection 10 mL Completed/Discontinued Medications Medication Drug Class(es) Dates Sig (Normalized) Sig (Original) acetaminophen 325 mg / HYDROcodone bitartrate 5 mg oral tablet (7 sources) Opioid Agonist Start: 07-14-2022 End: 09-10-2023 Hydrocodone-Acetami nophen 5-325 mg tablet Discontinued 1 {tbl} PO EVERY 6 HOURS NEEDED as needed for Pain 10 3 0 July 14, 2022 September 10, 2023 3:58pm Paresthesia of left upper extremity Paresthesia of skin Start: 07-14-2022 take 1 tablet by eddie th every six hours as needed Hydrocodone-Acetaminophen Active 1 TABLE T PO EVERY 6 HOURS NEEDED 10 3 July 14, 2022 Start: 04-04-2019 End: 04-11-2019 take 1 tablet by mouth every six hours as needed for pain HYDROcodone-acetaminophen (NORCO) 5-325 MG per tablet Indications: Umbilical hernia without obstruction and without gangrene Take 1 tablet by mouth every 6 hours as needed for Pain for up to 7 days. 25 tablet 0 04/04/2019 04/11/2019 Active Start: 04-04-2019 End: 04-04-2019 HYDROcodone-acetaminophen (N ORCO) 5-325 MG per tablet 1 tablet amoxicillin 875 mg / clavulanate 125 mg oral tablet (3 sources) Penicillin-class Antibacterial Start: 05-27-2024 End: 06-03-2024 Amoxicillin-Pot Clavulanate 875-125 mg tablet Discontinued 1 {tbl} PO TWICE A DAY 14 7 0 May 27, 2024 12:00am June 02, 2024 12:00am June 03, 2024 12:14am 1 ml ketorolac tromethamine 30 mg/ml cartridge (1 source) Nonsteroidal Anti-inflammatory Drug, Cyclooxygenase Inhibitor Start: 04-04-2019 End: 04-04-2019 ketorolac (TORADOL) injection 30 mg Problems Active Problems Problem Classification Problem Date Documented Date Episodic/Chronic Abdominal pain (6 sources) Left inguinal pain; Translations: [Left lower quadrant pain] 01-25-2022 Episodic Alcohol-related disorders (9 sources) Alcohol intake above recommended sensible limits; Translations: [Alcohol abuse, uncomplicated] Onset: 11-27-2018 11-27-2018 Chronic Anxiety disorders (3 sources) Mixed anxiety and depressive disorder; Translations: [Anxiety disorder, unspecified] 10-11-2023 Chronic Aortic; peripheral; and visceral artery aneurysms (7 sources) Aortic root dilatation; Translations: [Thoracic aortic ectasia] Onset: 11-19-2024 11-23-2023 Chronic Conduction disorders (3 sources) Right bundle branch block; Translations: [Unspecified right bundle-branch block] 10-11-2023 Chronic Diseases of white blood cells (1 source) Leukocytosis Chronic Disorders of lipid metabolism (16 sources) Hyperlipidemia; Translations: [Mixed hyperlipidemia] Onset: 11-27-2018 11-27-2018 Chronic Diverticulosis and diverticulitis (5 sources) Diverticulosis of colon; Translations: [Diverticulosis of large intestine without perforation or abscess without bleeding] Onset: 11-27-2018 11-27-2018 Chronic Diverticulosis and diverticulitis (3 sources) Diverticulosis of colon; Translations: [Diverticulosis of colon] Onset: 11-27-2018 11-27-2018 Esophageal disorders (8 sources) Gastroesophageal reflux disease; Translations: [Gastro-esophageal reflux disease without esophagitis] Onset: 11-05-2015 11-27-2018 Chronic Essential hypertension (10 sources) Essential hypertension; Translations: [Essential (primary) hypertension] Onset: 01-05-2024 10-11-2023 Chronic Heart valve disorders (7 sources) Aortic valve stenosis; Translations: [Nonrheumatic aortic (valve) stenosis] Onset: 11-19-2024 10-11-2023 Chronic Heart valve disorders (3 sources) Heart murmur; Translations: [Cardiac murmur, unspecified] 10-11-2023 Episodic Inflammatory conditions of male genital organs (6 sources) Epididymitis; Translations: [Epididymitis] 01-25-2022 Episodic Malaise and fatigue (4 sources) Fatigue; Translations: [Other fatigue] 10-11-2023 Episodic Other liver diseases (3 sources) Hepatic fibrosis; Translations: [Hepatic fibrosis] 10-11-2023 Chronic Other nervous system disorders (5 sources) Paresthesia of left upper limb; Translations: [Paresthesia of skin] 07-22-2022 Episodic Other non-traumatic joint disorders (1 source) Pain in right shoulder; Translations: [Pain in right shoulder] Onset: 11-16-2024 Episodic Other non-traumatic joint disorders (1 source) Bilateral knee pain; Translations: [Arthralgia of both knees] Onset: 03-20-2020 03-20-2020 Other non-traumatic joint disorders (1 source) Pain in joints of right hand; Translations: [Arthralgia of both hands] Onset: 03-20-2020 03-20-2020 Other screening for suspected conditions (not mental disorders or infectious disease) (1 source) Viral screening status; Translations: [Need for hepatitis C screening test] Episodic Residual codes; unclassified (4 sources) Obstructive sleep apnea syndrome; Translations: [Obstructive sleep apnea (adult) (pediatric)] 06-23-2020 Chronic Residual codes; unclassified (3 sources) Insomnia; Translations: [Insomnia, unspecified] 10-11-2023 Episodic Sprains and strains (10 sources) Strain of thoracic region; Translations: [Strain of muscle and tendon of back wall of thorax, initial encounter] 07-22-2022 Episodic Unclassified (3 sources) Patient encounter status; Translations: [Screening for HIV (human immunodeficiency virus)] Past or Other Problems Problem Classification Problem Date Documented Da te Episodic/Chronic Abdominal hernia (8 sources) Umbilical hernia; Translations: [Umbilical hernia without obstruction or gangrene] Onset: 03-02-2019 04-04-2019 Episodic Diabetes mellitus without complication (17 sources) Impaired fasting glycaemia; Translations: [Prediabetes] Onset: 11-05-2015 11-27-2018 Episodic E Codes: Natural/environment (5 sources) Dog bite - wound; Translations: [Bitten by dog, initial encounter] Onset: 05-28-2024 05-27-2024 Episodic Hemorrhoids (18 sources) External hemorrhoids; Translations: [Internal hemorrhoids] Onset: 11-27-2018 11-27-2018 Episodic Nonspecific chest pain (7 sources) Chest pain; Translations: [Chest pain, unspecified] Onset: 01-05-2024 10-11-2023 Episodic Other and unspecified benign neoplasm (8 sources) History of polyp of colon; Translations: [Personal history of colonic polyps] Onset: 11-05-2015 11-27-2018 Episodic Other connective tissue disease (5 sources) Plantar fasciitis of right foot; Translations: [Plantar fascial fibromatosis] Onset: 12-10-2015 Resolved: 11-27-2018 11-27-2018 Episodic Other connective tissue disease (3 sources) Plantar fasciitis of right foot; Translations: [Plantar fasciitis of right foot] Onset: 12-10-2015 Resolved: 11-27-2018 11-27-2018 Other non-traumatic joint disorders (2 sources) Bilateral knee pain; Translations: [Pain in right knee] Onset: 03-20-2020 03-20-2020 Episodic Other non-traumatic joint disorders (2 sources) Bilateral pain of joint of hands; Translations: [Pain in joints of right hand] Onset: 03-20-2020 03-20-2020 Episodic Residual codes; unclassified (7 sources) At risk of heart disease; Translations: [Other specified personal risk factors, not elsewhere classified] Onset: 12-26-2018 12-26-2018 Episodic Results Test Name Value Interpretation Reference Range Facility CTA Chest W/WO Contraston CTA Chest W/WO Contrast [facility] [address] [place] [address] [id number] CTA Chest W/WO Contrast MR#: [id number] Acct: [id number] Name: LANEY VAN Rep #: [id number] : 1960 M 64 From: Miguel Tariq MD PCP: Dr. Ike Harvey MD Status: REG CL Study: CTA Chest W/WO Contrast Date of Exam: 12/04/24 Exam# [id number] Ordering Dr: Jose Alejandro Ornelas CARDIOLOGY PHYSICIAN CARDIOLOGY PHYSICIAN-C EXAM: CT Angiography Chest Without and With Intravenous Contrast CLINICAL INDICATION: EVALUATE AORTIC ROOT SIZE TECHNIQUE: Axial computed tomographic angiography images of the chest without and with intravenous contrast. This CT exam was performed using one or more of the following dose reduction techniques: automated exposure control, adjustment of the mA and/or kV according to patient size, and/or use of iterative reconstruction technique. MIP reconstructed images were created and reviewed. COMPARISON: No relevant prior studies available. FINDINGS: PULMONARY ARTERIES: Unremarkable. No pulmonary embolism. AORTA: The aortic root measures up to 3.9 cm in diameter. No thoracic aortic aneurysm. LUNGS AND PLEURAL SPACES: Emphysematous lung changes with ground-glass attenuation, likely air trapping. No mass. No consolidation. No significant effusion. HEART: Unremarkable. No cardiomegaly. No significant pericardial effusion. No evidence of RV dysfunction. MEDIASTINUM: Prominent mediastinal lymph nodes with calcified lymph nodes, likely a sequela of prior granulomatous disease. BONES/JOINTS: No acute fracture. No dislocation. SOFT TISSUES: Unremarkable. LYMPH NODES: See above. CT/CTA Chest W/WO Contrast IMPRESSION: 1. The aortic root measures up to 3.9 cm in diameter. 2. Prominent mediastinal lymph nodes with calcified lymph nodes, likely a sequela of prior granulomatous disease. 3. Emphysematous lung changes with ground-glass attenuation, likely air trapping. Reading Location: [facility] CC: MAGGIE Ornelas; Dr. Ike Harvey MD Charge Machine Operator: Signed Normal [facility] Cardiology Visit Reporton Cardiology Visit Report [facility] [address] [place] [address] OFFICE VISIT Date of Service: 11/19/24 MR#: [id number] Acct: [id number] Name: LANEY VAN Rep #: [id number] : 1960 Provider: MAGGIE jesus Age/Sex: 64/M Location: [facility] Status: Signed HPI HPI History of Present Illness Details: Pleasant 64-year-old man with no previous cardiac history who had presented to the emergency room because he had been checking his blood pressures at home and felt that he was having heatstroke. He was noted to have blood pressures in the 170s to 180s he was evaluated in the emergency room he was treated and subsequently discharged. He subsequently saw his primary physician who noted that he had a heart murmur and asked him to have an echocardiogram which demonstrated preserved ejection fraction peak gradient of 40 mmHg across the aortic valve with a mean gradient of 22 mmHg. He was sent to cardiology for further evaluation and management. He was also noted to have a moderately dilated aortic root. He denies chest, arm, jaw, or neck discomfort. He denies palpitations or bilateral lower extremity edema. He denies shortness with activity, shortness of breath at rest, orthopnea, cough, or PND. He denies lightheadedness, dizziness, near-syncope, syncope, weakness, or fatigue. 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: No Accompanied by: Self Is patient in pain?: No Allergies No Known Allergies Allergy (Verified 11/19/24 08:28) Medications ???Medication ???Instructions ???Recorded ???Confirmed ???Type gabapentin 300 mg capsule 300 mg PO QHS 09/10/23 11/19/24 Hi story losartan 100 mg tablet 100 mg PO QHS 09/10/23 11/19/24 Hi story rosuvastatin 40 mg tablet 40 mg PO DAILY 09/10/23 11/19/24 H istory amlodipine 5 mg tablet 10 mg PO DAILY 11/19/24 11/19/24 H istory citalopram 10 mg tablet 20 mg PO DAILY 11/19/24 11/19/24 H istory Ejection fraction %: 70 Have you fallen in the past year?: Yes PFSH Medical History YELITZA (obstructive sleep apnea) Hepatic fibrosis Insomnia Fatigue Anxiety and depression RBBB Essential (primary) hypertension Aortic stenosis Chest pain of unknown etiology Cardiac murmur Hyperlipidemia Surgical History History of hernia surgery Family History Brother CVA (cerebral vascular accident) Prostate cancer Mother Alzheimer's dementia Social History (Updated 11/19/24 @ 08:31 by Jaleesa Bajwa) Smoking Status: Former smoker how long ago did patient quit smokin years alcohol intake: current substance use type: marijuana ROS Const Const: Negative for fatigue or weakness Eyes Eyes: Positive for change in vision ("I'm getting old") ENT ENT: Negative for dizziness or balance problems Cardio Chest Pain: No Palpitations: No Edema: None Muscle aches with walking: None Resp Respiratory: Negative for SOB with activity, SOB at rest or SOB orthopnea SOB lying down GI GI: Positive for heartburn (Feels it in his chest, but if he takes TUMS it goes away.); Negative nausea : Negative for hematuria or frequent nighttime urination/ nocturia Musc Musc: Negative for balance problems Skin Skin: Negative non-healing lesions or rash Neuro Neuro: Negative for dizziness, lightheadedness, near syncope, syncope or weakness Endo Endo: Negative for fatigue Allergy Allergy/Immunology: Negative for rash Cardiology Exam Const Appearance: cooperative, healthy appearing, comfortable and no acute distress Nutritional Appearance: well nourished and obese Orientation: alert, awake and oriented x3 Head Head: normal to inspection Ears: hearing grossly normal bilaterally Nose: external nose normal Face and Sinus: face symmetric Mouth: moist mucous membranes Eyes General: appearance normal, both eyes and all related structures Eyelids: eyelids normal EOM: EOM intact bilaterally Neck Neck: normal visual inspection and no JVD Carotids: normal carotid upstroke Chest Chest inspection: normal inspection of the chest, symmetric chest movement and normal respiratory effort; Negative cough Auscultation: Bilateral: Clear to Auscultation Cardio Rate: regular rate Rhythm: regular rhythm Heart sounds: S1 normal, S2 normal and murmur; Negative rub or gallop Murmur: Grade 2/6 and WILLIAM loudest primary aortic area GI GI: normal to inspection an (more content not included)... Normal [facility] HIP, UNI W/ Pelvis 2-3 Views on 10-30-2024 HIP, UNI W/ Pelvis 2-3 Views [facility] [address] [place] [address] HIP, UNI W/ Pelvis 2-3 Views MR#: [id number] Acct: [id number] Name: LANEY VAN Rep #: [id number] : 1960 M 64 From: Tomy chery MD PCP: Dr. Ike Harvey MD Status: REG CLI Study: HIP, UNI W/ Pelvis 2-3 Views Date of Exam: 04/24 Exam# [id number] Ordering Dr: Ike Harvey MD PROCEDURE: HIP, UNI W/ PELVIS 2-3 VIEWS 10/30/2024 REASON FOR EXAM: LEFT HIP PAIN/LT SIDED SCIATICA/LOW BACK PAIN TECHNIQUE: Procedure Code: RADHP Modality: DX Procedure: HIP, UNI W/ PELVIS 2-3 VIEWS Laterality: Left COMPARISON: None FINDINGS: Bones: No fracture is seen. Joints: Moderate degree of joint space narrowing involving both hip joints. Degenerative changes of the symphysis pubis. Soft tissues: Calcified phleboliths in the right hemipelvis. Other: RAD/HIP, UNI W/ Pelvis 2-3 Views IMPRESSION: Osteoarthritis of both hip joints. Degenerative changes of the symphysis pubis. [id number]: Dr. Ike Harvey MD Charge Machine Operator: Signed Normal [facility] L/S Spine Min 4 Viewson L/S Spine Min 4 Views [facility] [address] [place] [id number] L/S Spine Min 4 Views MR#: [id number] Acct: [id number] Name: LANEY VAN Rep #: [id number] : 1960 M 64 From: Tomy chery MD PCP: Dr. Ike Harvey MD Status: REG CLI Study: L/S Spine Min 4 Views Date of Exam: 10/30/24 Exam# [id number] Ordering Dr: Ike Harvey MD PROCEDURE: L/S SPINE MIN 4 VIEWS 10/30/2024 REASON FOR EXAM: LOW BACK PAIN TECHNIQUE: Procedure Code: RADSPLS Modality: DX Procedure: L/S SPINE MIN 4 VIEWS COMPARISON: None FINDINGS: Curvature: Levoconvex scoliosis. Other findings: Multilevel spondylosis and disc space narrowing. Facet joint osteoarthritis. Other: Calcification of the abdominal aorta. RAD/L/S Spine Min 4 Views IMPRESSION: Levoconvex scoliosis. Multilevel disc space narrowing and spondylosis with facet joint osteoarthritis. Calcification of the abdominal aorta. Reading [id number] CC: Dr. Ike Harvey MD Charge Machine Operator: Signed Normal [facility] Shoulder min 2 Viewson 10-30 Shoulder min 2 Views [facility] [address] [place] [address] Shoulder min 2 Views MR#: [id number] Acct: [id number] Name: LANEY VAN Rep #: [id number] : 1960 M 64 From: Liane Mendez PCP: Dr. Ike Harvey MD Status: REG CLI Study: Shoulder min 2 Views Date of Exam: 10/30/24 Exam# [id number] Ordering Dr: Ike Harvey MD PROCEDURE: SHOULDER MIN 2 VIEWS 10/30/2024 REASON FOR EXAM: RIGHT SHOULDER PAIN TECHNIQUE: Procedure Code: RAD Modality: DX Procedure: SHOULDER MIN 2 VIEWS COMPARISON: none RAD/Shoulder min 2 Views IMPRESSION: No acute fracture or dislocations. Mild degenerative changes of the right shoulder. No acute soft tissue abnormalities. No radiographic foreign body. Reading Location: [facility] CC: Dr. Ike Harvey MD Charge Machine Operator: Signed Normal [facility] Absolute lymphocyte countOrd ered By: Ike Harvey on 07-18-2024 Lymphocytes Auto (Unsp spec) [#/Vol] 1.66 10*3/uL 0.83-4.51 [facility] Absolute neutrophil countOrd ered By: Ike Harvey on 07-18-2024 Neutrophils (Bld) [#/Vol] 6.9 10*3/uL 2.0-7.7 [facility] Anion gap in Serum or Plasma Ordered By: Ike Harvey on 07-18-2024 Anion gap [Moles/Vol] 12 mmol/L 5-15 [facility] Automated lymphocyte count a s percentage of total leukocytesOrdered By: Ike Harvey on 07-18-2024 Lymphocytes/100 WBC Auto (Unsp spec) 17.1 % Low - [facility] BUN/creatinine ratioOrdered By: Ike Harvey on 07-18-2024 Urea nitrogen/Creatinine [Mass ratio] 17.7 mg/mg 10- [facility] Basophil percentageOrdered B y: Ike Harvey on 07-18-2024 Basophils/100 WBC (Bld) 0.8 % 0-[address] [facility] Bilirubin, totalOrdered By: Ike Harvey on 07-18-2024 Bilirubin [Mass/Vol] 0.59 mg/dL 0.00-1.30 [facility] CBC W/Diff, Automatedon 06-29 Absolute Lymph 1.66 X10 3/uL Normal 0.83-4.51 [facility] Comment on above: Performed By: #### L 501.9520, L500.4050, L100.0100, L501.9910, L506.1001 #### [facility] [address] [place], [address] Absolute Neut 6.9 X10 3/uL Normal 2.0-7.7 [facility] Comment on above: Performed By: #### L 501.9520, L500.4050, L100.0100, L501.9910, L506.1001 #### [facility] [address] [place], [address] Basophils/100 WBC (Bld) 0.8 % Normal 0-[address] [facility] Comment on above: Performed By: #### L 501.9520, L500.4050, L100.0100, L501.9910, L506.1001 #### [facility] [address] [place], [address] Eosinophils/100 WBC (Bld) 2.5 % Normal 0-5 [facility] Comment on above: Performed By: #### L 501.9520, L500.4050, L100.0100, L501.9910, L506.1001 #### [facility] [address] [place], [address] Erythrocyte distribution width (RBC) [Ratio] 13.8 % Normal 11.6-14.6 [facility] Comment on above: Performed By: #### L 501.9520, L500.4050, L100.0100, L501.9910, L506.1001 #### [facility] [address] [place], [address] Hematocrit (Bld) [Volume fraction] 43.7 % Normal 40-54 [facility] Comment on above: Performed By: #### L 501.9520, L500.4050, L100.0100, L501.9910, L506.1001 #### [facility] [address] [place], [address] Hemoglobin (Bld) [Mass/Vol] 14.8 g/dL Normal 13.0-16.5 [facility] Comment on above: Performed By: #### L 501.9520, L500.4050, L100.0100, L501.9910, L506.1001 #### [facility] [address] [place], [address] IG% 0.500 Normal 0.0-0.9 [facility] Comment on above: Result Comment: IG% - Immature Granulocytes (promyelocytes, myelocytes and metamyelocytes) > 1% indicates that a LEFT SHIFT is Present. Performed By: #### L 501.9520, L500.4050, L100.0100, L501.9910, L506.1001 #### [facility] [address] [place], [address] Lymphocytes/100 WBC (Bld) 17.1 % Low 19-41 [facility] Comment on above: Performed By: #### L 501.9520, L500.4050, L100.0100, L501.9910, L506.1001 #### [facility] [address] [place], [address] MCH (RBC) [Entitic mass] 29.6 pg Normal 27.0-32.0 [facility] Comment on above: Performed By: #### L 501.9520, L500.4050, L100.0100, L501.9910, L506.1001 #### [facility] [address] [place], [address] MCHC (RBC) [Mass/Vol] 33.9 g/dL Normal 32-36 [facility] Comment on above: Performed By: #### L 501.9520, L500.4050, L100.0100, L501.9910, L506.1001 #### [facility] [address] [place], [address] MCV (RBC) [Entitic vol] 87.4 fL Normal 80-94 [facility] Comment on above: Performed By: #### L 501.9520, L500.4050, L100.0100, L501.9910, L506.1001 #### [facility] [address] [place], [address] Monocytes/100 WBC (Bld) 8.1 % Normal 0-10 [facility] Comment on above: Performed By: #### L 501.9520, L500.4050, L100.0100, L501.9910, L506.1001 #### [facility] [address] [place], [address] Neutrophils/100 WBC (Bld) 71.0 % High 47-70 [facility] Comment on above: Performed By: #### L 501.9520, L500.4050, L100.0100, L501.9910, L506.1001 #### [facility] [address] [place], [address] Nucleated RBC (Bld) [#/Vol] 0 10*3/uL Normal 0-5 [facility] Comment on above: Performed By: #### L 501.9520, L500.4050, L100.0100, L501.9910, L506.1001 #### [facility] [address] [place], [address] Platelet mean volume (Bld) [Entitic vol] 10.6 fL Normal 6.2-12.0 [facility] Comment on above: Performed By: #### L 501.9520, L500.4050, L100.0100, L501.9910, L506.1001 #### [facility] [address] [place], [address] Platelets (Bld) [#/Vol] 215 10*3/uL Normal 150-450 [facility] Comment on above: Performed By: #### L 501.9520, L500.4050, L100.0100, L501.9910, L506.1001 #### [facility] [address] [place], [address] RBC (Bld) [#/Vol] 5.00 10*6/uL Normal 4.6-6.2 [facility] Comment on above: Performed By: #### L 501.9520, L500.4050, L100.0100, L501.9910, L506.1001 #### [facility] [address] [place], [address] RDW SD 44.2 fl High 35.1-43.9 [facility] Comment on above: Performed By: #### L 501.9520, L500.4050, L100.0100, L501.9910, L506.1001 #### [facility] [address] [place], [address] WBC (Bld) [#/Vol] 9.7 10*3/uL Normal 4.4-11.0 [facility] Comment on above: Performed By: #### L 501.9520, L500.4050, L100.0100, L501.9910, L506.1001 #### [facility] [address] [place], [address] Carbon dioxide, total [Moles /volume] in Central venous bloodOrdered By: Ike Harvey on 07-18-2024 CO2 [Moles/Vol] 22.7 mmol/L 21.0-32.0 [facility] Chloride assayOrdered By: Lux Harvey on 07-18-2024 Chloride [Moles/Vol] 102 mmol/L 98-108 [facility] Comprehensive Metabolic Prof ilon 07-18-2024 Albumin [Mass/Vol] 4.6 g/dL Normal 3.4-4.8 [facility] Comment on above: Performed By: #### L 501.9520, L500.4050, L100.0100, L501.9910, L506.1001 #### [facility] [address] [place], [address] Albumin/Globulin [Mass ratio] 1.7 {ratio} Normal 0.9-2.4 [facility] Comment on above: Performed By: #### L 501.9520, L500.4050, L100.0100, L501.9910, L506.1001 #### [facility] [address] [place], [address] ALK PHOS 78 U/L Normal 40-129 [facility] Comment on above: Performed By: #### L 501.9520, L500.4050, L100.0100, L501.9910, L506.1001 #### [facility] [address] [place], [address] ALT [Catalytic activity/Vol] 37 U/L Normal <=46 [facility] Comment on above: Performed By: #### L 501.9520, L500.4050, L100.0100, L501.9910, L506.1001 #### [facility] [address] [place], [address] AST [Catalytic activity/Vol] 32 U/L Normal <=37 [facility] Comment on above: Performed By: #### L 501.9520, L500.4050, L100.0100, L501.9910, L506.1001 #### [facility] [address] [place], [address] Bilirubin [Mass/Vol] 0.59 mg/dL Normal 0.00-1.30 [facility] Comment on above: Performed By: #### L 501.9520, L500.4050, L100.0100, L501.9910, L506.1001 #### [facility] [address] [place], [address] BUN/CRE 17.7 RATIO Normal 10-20 [facility] Comment on above: Performed By: #### L 501.9520, L500.4050, L100.0100, L501.9910, L506.1001 #### [facility] [address] [place], [address] Calcium [Mass/Vol] 9.3 mg/dL Normal 7.6-11.0 [facility] Comment on above: Performed By: #### L 501.9520, L500.4050, L100.0100, L501.9910, L506.1001 #### [facility] [address] [place], [address] Chloride [Moles/Vol] 102 mmol/L Normal 98-108 [facility] Comment on above: Performed By: #### L 501.9520, L500.4050, L100.0100, L501.9910, L506.1001 #### [facility] [address] [place], [address] CO2 [Moles/Vol] 22.7 mmol/L Normal 21.0-32.0 [facility] Comment on above: Performed By: #### L 501.9520, L500.4050, L100.0100, L501.9910, L506.1001 #### [facility] [address] [place], [address] Creatinine [Mass/Vol] 0.98 mg/dL Normal 0.70-1.20 [facility] Comment on above: Performed By: #### L 501.9520, L500.4050, L100.0100, L501.9910, L506.1001 #### [facility] [address] [place], [address] GAP 12 Normal 5-15 [facility] Comment on above: Performed By: #### L 501.9520, L500.4050, L100.0100, L501.9910, L506.1001 #### [facility] [address] [place], [address] GFR/1.73 sq M.predicted among non-blacks MDRD (S/P/Bld) [Vol rate/Area] 85 mL/min/{1.73_m2} Normal >60 [facility] Comment on above: Result Comment: mL/m in/1.73m2 CKD-EPI Creatinine Equation (2020) Performed By: #### L 501.9520, L500.4050, L100.0100, L501.9910, L506.1001 #### [facility] [address] [place], [address] Globulin (S) [Mass/Vol] 2.7 g/dL Normal 2.2-4.2 [facility] Comment on above: Performed By: #### L 501.9520, L500.4050, L100.0100, L501.9910, L506.1001 #### [facility] [address] [place], [address] Glucose [Mass/Vol] 111 mg/dL High 70-99 [facility] Comment on above: Performed By: #### L 501.9520, L500.4050, L100.0100, L501.9910, L506.1001 #### [facility] [address] [place], [address] Potassium [Moles/Vol] 4.2 mmol/L Normal 3.3-5.1 [facility] Comment on above: Performed By: #### L 501.9520, L500.4050, L100.0100, L501.9910, L506.1001 #### [facility] [address] [place], [address] Sodium [Moles/Vol] 137 mmol/L Normal 133-145 [facility] Comment on above: Performed By: #### L 501.9520, L500.4050, L100.0100, L501.9910, L506.1001 #### [facility] [address] [place], [address] T PROT 7.2 g/dL Normal 5.9-8.4 [facility] Comment on above: Performed By: #### L 501.9520, L500.4050, L100.0100, L501.9910, L506.1001 #### [facility] [address] [place], [address] Urea nitrogen [Mass/Vol] 17 mg/dL Normal 4-19 [facility] Comment on above: Performed By: #### L 501.9520, L500.4050, L100.0100, L501.9910, L506.1001 #### [facility] [address] [place], [address] Eosinophil percentageOrdered By: Ike Harvey on 07-18-2024 Eosinophils/100 WBC (Bld) 2.5 % 0-5 [facility] Erythrocyte distribution wid th ratioOrdered By: Ike Harvey on 07-18-2024 Erythrocyte distribution width (RBC) [Ratio] 13.8 % 11.6-14.6 [facility] Erythrocyte distribution wid th standard deviationOrdered By: Ike Harvey on 07-18-2024 Erythrocyte distribution width (RBC) [Ratio] 44.2 fl High 35.1-43.9 [facility] Glomerular filtration rate ( GFR) estimation/1.73 sq m using serum, plasma, or whole bOrdered By: Ike Harvey on 07-18-2024 GFR/1.73 sq M.predicted among non-blacks MDRD (S/P/Bld) [Vol rate/Area] 85 mL/min/{1.73_m2} >60 [facility] Comment on above: mL/min/1.73m2 CKD-EP I Creatinine Equation (2020) Hematocrit Auto (Bld) [Volum e fraction]Ordered By: Ike Harvey on 07-18-2024 Hematocrit (Bld) [Volume fraction] 43.7 % 40-54 [facility] Hemoglobin measurementOrdere d By: Ike Harvey 07-18-2024 Hemoglobin (Bld) [Mass/Vol] 14.8 g/dL 13.0-16.5 [facility] Immature granulocytes/100 WB C Auto (Bld)Ordered By: Ike Harvey 07-18-2024 Immature granulocytes/100 WBC (Bld) 0.500 % 0.0-0.9 [facility] Comment on above: IG% - Immature Granu locytes (promyelocytes, myelocytes and metamyelocytes) > 1% indicates that a LEFT SHIFT is Present. Laboratory - Chemistry and C hemistry - challengeOrdered By: Ike Harvey 07-18-2024 AST [Catalytic activity/Vol] 32 U/L <38 [facility] MCV (mean corpuscular volume ) determinationOrdered By: Ike Harvey 07-18-2024 MCV (RBC) [Entitic vol] 87.4 fL 80-[address] [facility] Mean corpuscular hemoglobin (MCH) determinationOrdered By: Ike Harvey 07-18-2024 MCH (RBC) [Entitic mass] 29.6 pg 27.0-32.0 [facility] Mean corpuscular hemoglobin concentration (MCHC) determinationOrdered By: Ike Harvey 07-18-2024 MCHC (RBC) [Mass/Vol] 33.9 g/dL 32-36 [facility] Mean platelet volume determi nationOrdered By: Ike Harvey 07-18-2024 Platelet mean volume (Bld) [Entitic vol] 10.6 fL 6.2-12.0 [facility] Monocyte percentageOrdered B y: Ike Harvey on 07-18-2024 Monocytes/100 WBC (Bld) 8.1 % 0-[address] [facility] Neutrophil percentageOrdered By: Ike Harvey on 07-18-2024 Neutrophils/100 WBC (Bld) 71.0 % High 47-70 [facility] Nucleated red blood cell per centageOrdered By: Ike Harvey on 07-18-2024 Nucleated RBC/100 WBC (Bld) [Ratio] 0 % 0-5 [facility] PSA,Total - Annual Screenon 07-18-2024 PSA,TOT SCREEN 0.60 ng/mL Normal 0.02-4.00 [facility] Comment on above: Result Comment: This test was performed using the [employer] tPSA method. Measured values of a patient??sample can vary depending on the testing procedure used. PSA values determined on patient samples by different testing procedures cannot be used interchangeably. If there is a change in PSA assays while monitoring therapy, sequential testing should be performed to confirm baseline values. Performed By: #### L 501.9520, L500.4050, L100.0100, L501.9910, L506.1001 ####[facility] [address] [place], [place], [address] Platelet countOrdered By: Lux Harvey on 07-18-2024 Platelets (Bld) [#/Vol] 215 10*3/uL 150-450 [facility] Potassium measurement (mass/ volume)Ordered By: Ike Harvey on 07-18-2024 Potassium (Unsp spec) [Mass/Vol] 4.2 mmol/L 3.3-5.1 [facility] RBC Auto (Bld) [#/Vol]Ordere d By: Ike Harvey on 07-18-2024 RBC (Bld) [#/Vol] 5.00 10*6/uL 4.6-6.2 [facility] Serum creatinine measurement (mass/volume)Ordered By: Ike Harvey on 07-18-2024 Creatinine [Mass/Vol] 0.98 mg/dL 0.70-1.20 [facility] Serum globulin measurementOr dered By: Ike Harvey on 07-18-2024 Globulin (S) [Mass/Vol] 2.7 g/dL 2.2-4.[address] [facility] Serum glucose measurement (m ass/volume)Ordered By: Ike Harvey on 07-18-2024 Glucose [Mass/Vol] 111 mg/dL High 70-99 [facility] Serum or plasma alanine manning otransferase (ALT) measurementOrdered By: Ike Harvey on 07-18-2024 ALT [Catalytic activity/Vol] 37 U/L <47 [facility] Serum or plasma albumin andrei urement (mass/volume)Ordered By: Ike Harvey on 07-18-2024 Albumin [Mass/Vol] 4.6 g/dL 3.4-4.8 [facility] Serum or plasma albumin/glob ulin mass ratioOrdered By: Ike Harvey on 07-18-2024 Albumin/Globulin [Mass ratio] 1.7 {ratio} 0.9-2.4 [facility] Serum or plasma alkaline aurelia sphatase measurementOrdered By: Ike Harvey on 07-18-2024 ALP [Catalytic activity/Vol] 78 U/L 40-129 [facility] Serum or plasma calcium andrei urement (mass/volume)Ordered By: Ike Harvey on 07-18-2024 Calcium [Mass/Vol] 9.3 mg/dL 7.6-11.0 [facility] Serum or plasma urea nitroge n measurement (mass/volume)Ordered By: Ike Harvey 07-18-2024 Urea nitrogen [Mass/Vol] 17 mg/dL 4-19 [facility] Sodium levelOrdered By: Ike Harvey on 07-18-2024 Sodium [Moles/Vol] 137 mmol/L 133-145 [facility] TSH DL <= 0.005 mIU/L QnOrde red By: Ike Harvey on 07-18-2024 TSH Qn 1.830 uIU/mL 0.300-4.200 [facility] Thyroid Stim Hormone (TSH)on 07-18-2024 TSH 1.830 uIU/mL Normal 0.300-4.200 [facility] Comment on above: Performed By: #### L 501.9520, L500.4050, L100.0100, L501.9910, L506.1001 #### [facility] [address] [place], [address] Total proteinOrdered By: Ike Harvey on 07-18-2024 Protein [Mass/Vol] 7.2 g/dL 5.9-8.4 [facility] Vitamin D,25 Hydroxyon 07-18 Vitamin D 25-OH 33.8 ng/mL Normal 30-100 [facility] Comment on above: Result Comment: Maureen min D Status Deficiency: <20 ng/mL (50nmol/L) Insufficiency: 20-30 ng/mL (50-75 nmol/L) Sufficiency: 30-100 ng/mL (75-250 nmol/L) Toxicity: >100 ng/mL (>250 nmol/L) Performed By: #### L 501.9520, L500.4050, L100.0100, L501.9910, L506.1001 ####[facility] [address] [place], [address] White blood cell (WBC) count Ordered By: Ike Harvey on 07-18-2024 WBC (Bld) [#/Vol] 9.7 10*3/uL 4.4-11.0 [facility] Office Visit Reporton [address] [facility] [address] [place] [address] OFFICE VISIT Date of Service: 05/27/24 MR#: [id number] Acct: [id number] Patient: LANEY VAN Rep #: [id number] : 1960 Provider: MAGGIE jesus Age/Sex: 63/M Location: [facility] Status: Signed with Addenda ADDENDUM by MAGGIE Ornelas on 06/10/24 at 0811 Assessment and Plan Assessment and Plan (1) Dog bite: Status: Acute Qualifiers: Encounter type: initial encounter Qualified Code(s): W54.0XXA - Bitten by dog, initial encounter Plan: This was noted to be a puncture wound. 06/10/24 0811 Date Jose Alejandro Ornelas NP cc: * Signed Intake Vital Signs 11/23/23 09:23 05/27/24 13:39 Height 5 ft 8 in 5 ft 8 in Weight: 230 lb 4 oz BMI 34.9 BP 132/86 H Position Sitting Pulse 77 Pulse Source Monitor Temp 98.2 F Temp Source Temporal Pulse Oximetry (%) 97 Oxygen Delivery Method room air Intake Visit Reasons: DOG BITE/CONCERN FOR INFECTION Is patient in pain?: No Allergies No Known Allergies Allergy (Verified 05/27/24 13:39) PFSH Medical History (Updated 05/27/24 @ 13:57 by Jose Alejandro Ornelas NP, CARDIOLOGY PHYSICIAN-C) YELITZA (obstructive sleep apnea) Hepatic fibrosis Insomnia Fatigue Anxiety and depression RBBB Essential (primary) hypertension Aortic stenosis Chest pain of unknown etiology Cardiac murmur Hyperlipidemia Surgical History History of hernia surgery Family History Brother CVA (cerebral vascular accident) Prostate cancer Mother Alzheimer's dementia Social History Smoking Status: Former smoker alcohol intake: current substance use type: marijuana HPI HPI Details: LANEY VAN, is a 63 M who presents to the office today for He states he was playing with his dog with a pull toy in the dog bit his hand. This is his own dog and is up to date on vaccinations. This occurred yesterday. Today, he woke up with more swelling on his hand. His daughter who is a wound nurse asked him to present for evaluation. His vital signs are stable. ROS Const Constitutional: No body ache, chills, fatigue, fever(s) or headache(s) ENT ENT: No headache(s) Skin Skin: Positive for redness and wounds (right top hand, Edema, redness, no drainage, half inch long) Neuro Neurology: No headache(s) Endo Endocrine: No fatigue Exam Const General: cooperative, healthy appearing, comfortable and no acute distress Orientation: alert and awake Skin General: other Coding Level of Care Code Off vis,new,level 3 Diagnoses Dog bite, initial encounter W54.0XXA Encounter type: initial encounter Assessment and Plan Assessment and Plan (1) Dog bite: Status: Acute Qualifiers: Encounter type: initial encounter Qualified Code(s): W54.0XXA - Bitten by dog, initial encounter Plan: This is noted on the top part of his right hand. Will add antibiotic to reduce long-term infection risk. Gave triple antibiotic to also assist. He was encouraged to continue with Tylenol and ib uprofen to assist with pain. He was asked to continue to elevate his hand and utilize ice to assist with edema. Red flag symptoms regarding worsening infection reviewed with him in detail. He acknowledged understanding. Encouraged to get plenty of rest, drink lots of clear liquids, and use Tylenol or Ibuprofen (unless contraindicated) for fever and comfort. Patient also educated on other symptomatic management techniques. To be seen in 7-10 days if no improvement; sooner if worsening of symptoms.??? Patient advised of potential red flags and when appropriate to report to the ED.??? Patient verbalized understanding and agreement with all the above. Medications: New amoxicillin-pot clavulanate 875-125 mg 1 TAB PO BID 7 days 14 tabs 0RF 05/27/24 1359 Date [facility] Roof CARDIOLOGY PHYSICIAN CARDIOLOGY PHYSICIAN-C Cosigner Signature: Date (if applicable) CC: Normal [facility] CBC W/Diff, Automatedon 11-2 Absolute Lymph 1.83 X10 3/uL Normal 0.83-4.51 [facility] Comment on above: Performed By: #### L 500.4050, L100.0100, L500.4100, L501.9985, L501.9520 ####[facility] [address] [place], [address] Absolute Neut 7.6 X10 3/uL Normal 2.0-7.7 [facility] Comment on above: Performed By: #### L 500.4050, L100.0100, L500.4100, L501.9985, L501.9520 ####[facility] [address] [place], [address] Basophils/100 WBC (Bld) 0.8 % Normal 0-[address] [facility] Comment on above: Performed By: #### L 500.4050, L100.0100, L500.4100, L501.9985, L501.9520 ####[facility] [address] [place], [address] Eosinophils/100 WBC (Bld) 2.4 % Normal 0-5 [facility] Comment on above: Performed By: #### L 500.4050, L100.0100, L500.4100, L501.9985, L501.9520 ####[facility] [address] [place], [address] Erythrocyte distribution width (RBC) [Ratio] 13.3 % Normal 11.6-14.6 [facility] Comment on above: Performed By: #### L 500.4050, L100.0100, L500.4100, L501.9985, L501.9520 ####[facility] [address] [place], [address] Hematocrit (Bld) [Volume fraction] 42.7 % Normal 40-54 [facility] Comment on above: Performed By: #### L 500.4050, L100.0100, L500.4100, L501.9985, L501.9520 ####[facility] [address] [place], [address] Hemoglobin (Bld) [Mass/Vol] 14.6 g/dL Normal 13.0-16.5 [facility] Comment on above: Performed By: #### L 500.4050, L100.0100, L500.4100, L501.9985, L501.9520 ####[facility] [address] [place], [address] IG% 1.600 High 0.0-0.9 [facility] Comment on above: Result Comment: IG% - Immature Granulocytes (promyelocytes, myelocytes and metamyelocytes) > 1% indicates that a LEFT SHIFT is Present. Performed By: #### L 500.4050, L100.0100, L500.4100, L501.9985, L501.9520 ####[facility] [address] [place], [address] Lymphocytes/100 WBC (Bld) 16.9 % Low 19-41 [facility] Comment on above: Performed By: #### L 500.4050, L100.0100, L500.4100, L501.9985, L501.9520 ####[facility] [address] [place], [address] MCH (RBC) [Entitic mass] 29.9 pg Normal 27.0-32.0 [facility] Comment on above: Performed By: #### L 500.4050, L100.0100, L500.4100, L501.9985, L501.9520 ####[facility] [address] [place], [address] MCHC (RBC) [Mass/Vol] 34.2 g/dL Normal 32-36 [facility] Comment on above: Performed By: #### L 500.4050, L100.0100, L500.4100, L501.9985, L501.9520 ####[facility] [address] [place], [address] MCV (RBC) [Entitic vol] 87.3 fL Normal 80-[address] [facility] Comment on above: Performed By: #### L 500.4050, L100.0100, L500.4100, L501.9985, L501.9520 ####[facility] [address] [place], [address] Monocytes/100 WBC (Bld) 8.1 % Normal 0-[address] [facility] Comment on above: Performed By: #### L 500.4050, L100.0100, L500.4100, L501.9985, L501.9520 ####[facility] [address] [place], [address] Neutrophils/100 WBC (Bld) 70.2 % High 47-70 [facility] Comment on above: Performed By: #### L 500.4050, L100.0100, L500.4100, L501.9985, L501.9520 ####[facility] [address] [place], [address] Nucleated RBC (Bld) [#/Vol] 0 10*3/uL Normal 0-5 [facility] Comment on above: Performed By: #### L 500.4050, L100.0100, L500.4100, L501.9985, L501.9520 ####[facility] [address] [place], [address] Platelet mean volume (Bld) [Entitic vol] 10.4 fL Normal 6.2-12.0 [facility] Comment on above: Performed By: #### L 500.4050, L100.0100, L500.4100, L501.9985, L501.9520 ####[facility] [address] [place], [address] Platelets (Bld) [#/Vol] 210 10*3/uL Normal 150-450 [facility] Comment on above: Performed By: #### L 500.4050, L100.0100, L500.4100, L501.9985, L501.9520 ####[facility] [address] [place], [address] RBC (Bld) [#/Vol] 4.89 10*6/uL Normal 4.6-6.2 [facility] Comment on above: Performed By: #### L 500.4050, L100.0100, L500.4100, L501.9985, L501.9520 ####[facility] [address] [place], [address] RDW SD 42.3 fl Normal 35.1-43.9 [facility] Comment on above: Performed By: #### L 500.4050, L100.0100, L500.4100, L501.9985, L501.9520 ####[facility] [address] [place], [address] WBC (Bld) [#/Vol] 10.9 10*3/uL Normal 4.4-11.0 [facility] Comment on above: Performed By: #### L 500.4050, L100.0100, L500.4100, L501.9985, L501.9520 ####[facility] [address] [place], [address] [facility] Albumin [Mass/Vol] 3.6 g/dL Normal 3.2-5.0 [facility] Comment on above: Performed By: #### L 500.4050, L100.0100, L500.4100, L501.9985, L501.9520 ####[facility] [address] [place], [address] Albumin/Globulin [Mass ratio] 1.0 {ratio} Normal 0.9-2.4 [facility] Comment on above: Performed By: #### L 500.4050, L100.0100, L500.4100, L501.9985, L501.9520 ####[facility] [address] [place], [address] ALK P 85 U/L Normal 45-117 [facility] Comment on above: Performed By: #### L 500.4050, L100.0100, L500.4100, L501.9985, L501.9520 ####[facility] [address] [place], [address] ALT [Catalytic activity/Vol] 46 U/L Normal 16-61 [facility] Comment on above: Performed By: #### L 500.4050, L100.0100, L500.4100, L501.9985, L501.9520 ####[facility] [address] [place], [address] AST [Catalytic activity/Vol] 32 U/L Normal 15-37 [facility] Comment on above: Performed By: #### L 500.4050, L100.0100, L500.4100, L501.9985, L501.9520 ####[facility] [address] [place], [address] Bilirubin [Mass/Vol] 0.50 mg/dL Normal 0.20-1.00 [facility] Comment on above: Result Comment: For patients on eltrombopag therapy, use of Dimension Bradley TBIL is not recommended. Performed By: #### L 500.4050, L100.0100, L500.4100, L501.9985, L501.9520 ####[facility] [address] [place], [address] BUN/CRE 16.7 RATIO Normal 10-20 [facility] Comment on above: Performed By: #### L 500.4050, L100.0100, L500.4100, L501.9985, L501.9520 ####[facility] [address] [place], [address] CA,Total 9.1 mg/dL Normal 8.5-10.1 [facility] Comment on above: Performed By: #### L 500.4050, L100.0100, L500.4100, L501.9985, L501.9520 ####[facility] [address] [place], [address] Chloride [Moles/Vol] 106 mmol/L Normal 98-107 [facility] Comment on above: Performed By: #### L 500.4050, L100.0100, L500.4100, L501.9985, L501.9520 ####[facility] [address] [place], [address] CO2 [Moles/Vol] 25.0 mmol/L Normal 21.0-32.0 [facility] Comment on above: Performed By: #### L 500.4050, L100.0100, L500.4100, L501.9985, L501.9520 ####[facility] [address] [place], [address] Creatinine [Mass/Vol] 1.08 mg/dL Normal 0.70-1.30 [facility] Comment on above: Result Comment: The validity of the calculated GFR GFRAA in patients over 70 years has not been determined. Clinical correlation is essential. Performed By: #### L 500.4050, L100.0100, L500.4100, L501.9985, L501.9520 ####[facility] [address] [place], [address] EST GFR - AA 88 mL/min Normal >60 [facility] Comment on above: Result Comment: Afri can Liberian GFR Calc Performed By: #### L 500.4050, L100.0100, L500.4100, L501.9985, L501.9520 ####[facility] [address] [place], [address] GAP 8 Normal 5-15 [facility] Comment on above: Performed By: #### L 500.4050, L100.0100, L500.4100, L501.9985, L501.9520 ####[facility] [address], [address] GFR/1.73 sq M.predicted among non-blacks MDRD (S/P/Bld) [Vol rate/Area] 73 mL/min/{1.73_m2} Normal >60 [facility] Comment on above: Result Comment: Non- GFR Calc Performed By: #### L 500.4050, L100.0100, L500.4100, L501.9985, L501.9520 ####[facility] [address] [place], [address] Globulin (S) [Mass/Vol] 3.7 g/dL Normal 2.2-4.2 [facility] Comment on above: Performed By: #### L 500.4050, L100.0100, L500.4100, L501.9985, L501.9520 ####[facility] [address], [address] Glucose [Mass/Vol] 142 mg/dL High 74-106 [facility] Comment on above: Result Comment: Fast ing Glucose result greater than or equal to 126 mg/dL suggests DIABETES MELLITUS per A.D.A. criteria. Performed By: #### L 500.4050, L100.0100, L500.4100, L501.9985, L501.9520 ####[facility] [address] [place], [address] Potassium [Moles/Vol] 4.5 mmol/L Normal 3.5-5.1 [facility] Comment on above: Performed By: #### L 500.4050, L100.0100, L500.4100, L501.9985, L501.9520 ####[facility] [address] [place], [address] Sodium [Moles/Vol] 138 mmol/L Normal 136-145 [facility] Comment on above: Performed By: #### L 500.4050, L100.0100, L500.4100, L501.9985, L501.9520 ####[facility] [address] [place], [address] T PROT 7.3 g/dL Normal 6.4-8.2 [facility] Comment on above: Performed By: #### L 500.4050, L100.0100, L500.4100, L501.9985, L501.9520 ####[facility] [address] [place], [address] Urea nitrogen [Mass/Vol] 18 mg/dL Normal 7-18 [facility] Comment on above: Performed By: #### L 500.4050, L100.0100, L500.4100, L501.9985, L501.9520 ####[facility] [address] [place], [address] Hemoglobin A1con 01-19-2024 HbA1c (Bld) [Mass fraction] 6.3 % High 3.8-5.6 [facility] Comment on above: Order Comment: ADD O N FROM LABS [id number] Result Comment: Norm al < 5.7 % Prediabetic 5.7 - 6.4 % Diabetic >or= 6.5 % Please note range changes. Performed By: #### L 500.4050, L100.0100, L500.4100, L501.9985, L501.9520 ####[facility] [address] [place], [address] Lipid Profileon 01-19-2024 Cholesterol [Mass/Vol] 124 mg/dL Normal 200 [facility] Comment on above: Result Comment: <200 mg/dL Desirable 200-240 mg/dL Borderline >240 mg/dL High Risk Performed By: #### L 500.4050, L100.0100, L500.4100, L501.9985, L501.9520 ####[facility] [address] [place], [address] Cholesterol in HDL [Mass/Vol] 45 mg/dL Normal [facility] Comment on above: Result Comment: The drugs N-Acetylcysteine and Metamizole may falsely depress this assay. Reference Range HDL <40 mg/dL Low HDL Cholesterol HDL >or= 60 mg/dL High HDL Cholesterol Performed By: #### L 500.4050, L100.0100, L500.4100, L501.9985, L501.9520 ####[facility] [address] [place], [address] Cholesterol in LDL [Mass/Vol] 44 mg/dL Normal 0-130 [facility] Comment on above: Performed By: #### L 500.4050, L100.0100, L500.4100, L501.9985, L501.9520 ####[facility] [address] [place], [address] Cholesterol in VLDL [Mass/Vol] 35 mg/dL Normal 5-40 [facility] Comment on above: Performed By: #### L 500.4050, L100.0100, L500.4100, L501.9985, L501.9520 ####[facility] [address] [place], [address] Triglyceride [Mass/Vol] 176 mg/dL Normal [facility] Comment on above: Result Comment: The drugs N-Acetylcysteine and Metamizole may falsely depress this assay. Serum Triglycerides Reference Interval Normal <150 mg/dL Borderline high 150 - 199 mg/dL High 200 - 499 mg/dL Very High > or = 500 mg/dL Performed By: #### L 500.4050, L100.0100, L500.4100, L501.9985, L501.9520 ####[facility] [address] [place], [address] Thyroid Stim Hormone (TSH)on 01-19-2024 TSH 1.460 uIU/mL Normal 0.358-3.740 [facility] Comment on above: Performed By: #### L 500.4050, L100.0100, L500.4100, L501.9985, L501.9520 ####[facility] [address] [place], [address] Stress Reporton 12-15-2023 Stress [address] [facility] [address] [place] [address] MR#: [id number] Acct: [id number] Name: LANEY VAN Rep #: [id number] : 1960 63 From: Mark Rose MD Primary Care: Dr. Ike Harvey MD Status: REG CLI Referring Dr: Jose Alejandro Ornelas NP Sex: M C Stress Test Report Exercise stress test. 63-year-old man with a history of chest pain Stress protocol: Resting EKG demonstrates sinus bradycardia with a rate of 54 bpm resting blood pressure is 122/92 mmHg. The patient exercised according to the regular Naeem protocol for a total duration of 7 minutes attaining a maximum heart rate of 136 bpm which was 87% of maximum predicted heart rate; the maximum workload was 10.1 metabolic equivalents. At rest there were no ST or T wave changes noted to suggest ischemia and at peak exercise upsloping ST changes only were noted which did not meet the criteria for ischemia. No clinical angina was noted the test was terminated due to the target heart rate being achieved/fatigue. The peak blood pressure was 182/106 mmHg. Rate-pressure product was 22,900. Conclusion: Exercise stress test with no EKG criteria for ischemia at a high workload No clinical angina noted 12/15/23 1410 Date Mark Rose MD CC: CARDIOLOGY PHYSICIAN-Abigail Ornelas; Dr. Ike Harvey MD Date Dictated: 12/15/231406 Date Transcribed: 12/15/231406 Charge Machine Operator: CO Signed Normal [facility] Basophil percentageOrdered B y: Dr. Harvey on 08-13-2022 Chloride [Moles/Vol] 103 mmol/L 98-107 [facility] Glucose [Mass/Vol] 171 mg/dL 74-106 [facility] Comment on above: Fasting Glucose resu lt greater than or equal to 126 mg/dL suggests DIABETES MELLITUS per A.D.A. criteria. Potassium [Moles/Vol] 4.2 mmol/L 3.5-5.1 [facility] Sodium [Moles/Vol] 137 mmol/L 136-145 [facility] Laboratory - Chemistry and C hemistry - challengeOrdered By: Dr. Harvey on 08-13-2022 CO2 [Moles/Vol] 25.0 mmol/L 21.0-32.0 [facility] Urea nitrogen/Creatinine [Mass ratio] 17.4 mg/mg 10-20 [facility] No Panel InformationOrdered By: Dr. Harvey on 08-13-2022 Estimated GFR (MDRD) Amer 83 mL/min >60 [facility] Comment on above: GFR Calc Estimated GFR (MDRD) Non-Af Amer 68 mL/min >60 [facility] Comment on above: Non- GFR Calc Serum or plasma calcium andrei urement (mass/volume)Ordered By: Dr. Harvey on 08-13-2022 Calcium [Mass/Vol] 9.4 mg/dL 8.5-10.1 [facility] Serum or plasma creatinine m easurement (mass/volume)Ordered By: Dr. Harvey on 08-13-2022 Creatinine [Mass/Vol] 1.15 mg/dL 0.70-1.30 [facility] Comment on above: The validity of the calculated GFR & GFRAA in patients over 70 years has not been determined. Clinical correlation is essential. Serum or plasma urea nitroge n measurement (mass/volume)Ordered By: Dr. Harvey on 08-13-2022 Urea nitrogen [Mass/Vol] 20 mg/dL 7-18 [facility] Thin prep Papanicolaou smear with manual screeningOrdered By: Dr. Harvey on 08-13-2022 Thin prep Papanicolaou smear with manual screening 9 5-15 [facility] Basophil percentageOrdered B y: Dr. Harvey on 07-28-2022 Cholesterol [Mass/Vol] 253 mg/dL <200 [facility] Comment on above: <200 mg/dL Desirable 200-240 mg/dL Borderline >240 mg/dL High Risk Triglyceride [Mass/Vol] 288 mg/dL <[address] [facility] Comment on above: The drugs N-Acetylcy steine and Metamizole may falsely depress this assay.Serum Triglycerides Reference Interval Normal <150 mg/dL Borderline high 150 - 199 mg/dL High 200 - 499 mg/dL Very High > or = 500 mg/dL Serum or plasma cholesterol in HDL measurement (mass/volume)Ordered By: Dr. Harvey on 07-28-2022 Cholesterol in HDL [Mass/Vol] 32 mg/dL >40 [facility] Comment on above: The drugs N-Acetylcy steine and Metamizole may falsely depress this assay. Reference Range HDL <40 mg/dL Low HDL Cholesterol HDL >or= 60 mg/dL High HDL Cholesterol Serum or plasma cholesterol in VLDL measurement (mass/volume)Ordered By: Dr. Harvey on 07-28-2022 Cholesterol in VLDL [Mass/Vol] 58 mg/dL 5-40 [facility] Serum or plasma low density lipoprotein (LDL) cholesterol measurement (mass/volume)Ordered By: Dr. Harvey on 07-28-2022 Cholesterol in LDL [Mass/Vol] 163 mg/dL 0-130 [facility] Absolute lymphocyte countOrd ered By: Dr. Maurer on 07-14-2022 Lymphocytes Auto (Unsp spec) [#/Vol] 1.24 10*3/uL 0.83-4.51 [facility] Basophil percentageOrdered B y: Dr. Maurer on 07-14-2022 Basophils/100 WBC (Bld) 0.8 % 0-[address] [facility] Chloride [Moles/Vol] 105 mmol/L 98-107 [facility] Eosinophils/100 WBC (Bld) 3.0 % 0-5 [facility] Glucose [Mass/Vol] 136 mg/dL 74-106 [facility] Comment on above: Fasting Glucose resu lt greater than or equal to 126 mg/dL suggests DIABETES MELLITUS per A.D.A. criteria. Neutrophils (Bld) [#/Vol] 6.8 10*3/uL 2.0-7.7 [facility] Neutrophils/100 WBC (Bld) 73.1 % 47-70 [facility] Potassium [Moles/Vol] 4.4 mmol/L 3.5-5.1 [facility] Sodium [Moles/Vol] 136 mmol/L 136-145 [facility] WBC (Bld) [#/Vol] 9.3 10*3/uL 4.4-11.0 [facility] Blood erythrocytes count (nu mber/volume)Ordered By: Dr. Maurer on 07-14-2022 RBC (Bld) [#/Vol] 5.33 10*6/uL 4.6-6.2 [facility] Blood hemoglobin measurement (mass/volume)Ordered By: Dr. Maurer on 07-14-2022 Hemoglobin (Bld) [Mass/Vol] 15.6 g/dL 13.0-16.5 [facility] Blood lymphocytes/100 leukoc ytesOrdered By: Dr. Maurer on 07-14-2022 Lymphocytes/100 WBC (Bld) 13.4 % 19-41 [facility] Blood monocytes/100 leukocyt esOrdered By: Dr. Maurer on 07-14-2022 Monocytes/100 WBC (Bld) 8.8 % 0-[address] [facility] Blood platelet mean volumeOr dered By: Dr. Maurer on 07-14-2022 Platelet mean volume (Bld) [Entitic vol] 10.3 fL 6.2-12.0 [facility] Determination of erythrocyte mean corpuscular volume (MCV)Ordered By: Dr. Maurer on 07-14-2022 MCV (RBC) [Entitic vol] 88.2 fL 80-[address] [facility] Hematocrit Auto (Bld) [Volum e fraction]Ordered By: Dr. Maurer on 07-14-2022 Hematocrit (Bld) [Volume fraction] 47.0 % 40-54 [facility] Laboratory - Chemistry and C hemistry - challengeOrdered By: Dr. Maurer on 07-14-2022 CO2 [Moles/Vol] 25.0 mmol/L 21.0-32.0 [facility] Urea nitrogen/Creatinine [Mass ratio] 20.4 mg/mg 10-20 [facility] Laboratory - Hematology and Cell countsOrdered By: Dr. Maurer on 07-14-2022 Erythrocyte distribution width (RBC) [Entitic vol] 44.0 fL 35.1-43.9 [facility] Erythrocyte distribution width (RBC) [Ratio] 13.6 % 11.6-14.6 [facility] Immature granulocytes/100 WBC (Bld) 0.900 % 0.0-0.9 [facility] Comment on above: IG% - Immature Granu locytes (promyelocytes, myelocytes and metamyelocytes) > 1% indicates that a LEFT SHIFT is Present. MCH (RBC) [Entitic mass] 29.3 pg 27.0-32.0 [facility] Nucleated RBC/100 WBC (Bld) [Ratio] 0 % 0-5 [facility] MCHC Auto (RBC) [Mass/Vol]Or dered By: Dr. Maurer on 07-14-2022 MCHC (RBC) [Mass/Vol] 33.2 g/dL 32-36 [facility] No Panel InformationOrdered By: Dr. Maurer on 07-14-2022 Estimated Creatinine Clearance Calc 71.02 ml/min [facility] Estimated GFR (MDRD) Amer 94 mL/min >60 [facility] Comment on above: GFR Calc Estimated GFR (MDRD) Non-Af Amer 78 mL/min >60 [facility] Comment on above: Non- GFR Calc Troponin I High Sensitivity 13 pg/mL 3.0-78.0 [facility] Comment on above: Please Note: New Robyn t Units and Gender Specific Reference Ranges. For more information see Policy Stat Procedure Bradley High Sensitivity Troponin (TNIH) and attachments. Platelets bldOrdered By: Dr. Maurer on 07-14-2022 Platelets (Bld) [#/Vol] 199 10*3/uL 150-450 [facility] Serum or plasma calcium andrei urement (mass/volume)Ordered By: Dr. Maurer on 07-14-2022 Calcium [Mass/Vol] 9.2 mg/dL 8.5-10.1 [facility] Serum or plasma creatinine m easurement (mass/volume)Ordered By: Dr. Maurer on 07-14-2022 Creatinine [Mass/Vol] 1.03 mg/dL 0.70-1.30 [facility] Comment on above: The validity of the calculated GFR & GFRAA in patients over 70 years has not been determined. Clinical correlation is essential. Serum or plasma urea nitroge n measurement (mass/volume)Ordered By: Dr. Maurer on 07-14-2022 Urea nitrogen [Mass/Vol] 21 mg/dL 7-18 [facility] Thin prep Papanicolaou smear with manual screeningOrdered By: Dr. Maurer on 07-14-2022 Thin prep Papanicolaou smear with manual screening 6 5-15 [facility] Basophil percentageon 2021 Basophil percentage 0 SEEN /hpf 0-5 [facility] Work Phone: Bilirubin Test strip Ql (U)o n 01-17-2022 Bilirubin Ql (U) Negative Negative [facility] Work Phone: Ketones Test strip Ql (U)on 01-17-2022 Ketones Ql (U) Negative Negative [facility] Work Phone: Mucus LM Ql (Urine sed)on Mucus Ql (Urine sed) 0 SEEN /hpf [facility] Work Phone: Nitrite Test strip Ql (U)on 01-17-2022 Nitrite Ql (U) Negative Negative [facility] Work Phone: Protein Test strip Ql (U)on 01-17-2022 Protein Ql (U) Negative Negative [facility] Work Phone: Squamous epithelial cells de tection in urine sediment by light microscopyon 01-17-2022 Epithelial cells.squamous LM Ql (Urine sed) 0-5 SEEN /hpf 0-5 [facility] Work Phone: Urine blood detectionon 12-30 RBC Ql (U) Negative Negative [facility] Work Phone: RBC Ql (U) 0 SEEN /hpf 0-5 [facility] Work Phone: Urine clarityon 01-17-2022 Clarity (U) Clear Clear [facility] Work Phone: Urine color determinationon 01-17-2022 Color (U) Yellow Yellow [facility] Work Phone: Urine glucose detectionon Glucose Ql (U) Normal mg/dl Normal [facility] Work Phone: Urine leukocyte esterase det ection by dipstickon 01-17-2022 Leukocyte esterase Test strip Ql (U) Negative Negative [facility] Work Phone: Urine pHon 01-17-2022 pH (U) 7.0 [pH] 5.0 - 8.0 [facility] Work Phone: Urine sediment bacteria coun t by microscopy (number/high power field)on 01-17-2022 Bacteria LM.HPF (Urine sed) [#/Area] 0 /[HPF] None Seen [facility] Work Phone: Urine specific gravity measu rementon 01-17-2022 Specific gravity (U) [Rel density] 1.015 1.002-1.030 [facility] Work Phone: Urobilinogen Auto test strip Ql (U)on 01-17-2022 Urobilinogen Ql (U) Normal mg/dl Normal [facility] Work Phone: Absolute lymphocyte counton 11-25-2021 Lymphocytes Auto (Unsp spec) [#/Vol] 1.74 10*3/uL 0.83-4.51 [facility] Work Phone: Basophil percentageon 2021 Basophils/100 WBC (Bld) 0.8 % 0-[address] [facility] Work Phone: Bilirubin [Mass/Vol] 0.50 mg/dL 0.20-1.00 [facility] Work Phone: Comment on above: For patients on eltr ombopag therapy, use of Dimension Bradley TBIL is not recommended. Chloride [Moles/Vol] 102 mmol/L 98-107 [facility] Work Phone: Eosinophils/100 WBC (Bld) 4.0 % 0-5 [facility] Work Phone: Glucose [Mass/Vol] 99 mg/dL 74-106 [facility] Work Phone: Neutrophils (Bld) [#/Vol] 5.4 10*3/uL 2.0-7.7 [facility] Work Phone: Neutrophils/100 WBC (Bld) 64.3 % 47-70 [facility] Work Phone: Potassium [Moles/Vol] 4.5 mmol/L 3.5-5.1 [facility] Work Phone: Protein [Mass/Vol] 7.5 g/dL 6.4-8.2 [facility] Work Phone: Sodium [Moles/Vol] 137 mmol/L 136-145 [facility] Work Phone: Testosterone [Mass/Vol] 271.33 ng/dL [facility] Work Phone: Comment on above: CENTRAL 90% REFERENC E RANGES MALE AGE <50 197.44 - 669.58 ng/dL MALE AGE > or = 50 187.72 - 684.19 ng/dL FEMALE AGE <50 8.38 - 35.01 ng/dL FEMALE AGE > or = 50 <7.00 - 35.92 ng/dL Effective as of 09/23/20 WBC (Bld) [#/Vol] 8.3 10*3/uL 4.4-11.0 [facility] Work Phone: Blood erythrocytes count (nu mber/volume)on 11-25-2021 RBC (Bld) [#/Vol] 5.27 10*6/uL 4.6-6.2 [facility] Work Phone: Blood hemoglobin measurement (mass/volume)on 11-25-2021 Hemoglobin (Bld) [Mass/Vol] 15.8 g/dL 13.0-16.5 [facility] Work Phone: Blood lymphocytes/100 leukoc yteson 11-25-2021 Lymphocytes/100 WBC (Bld) 20.9 % 19-41 [facility] Work Phone: Blood monocytes/100 leukocyt eson 11-25-2021 Monocytes/100 WBC (Bld) 8.4 % 0-[address] [facility] Work Phone: Blood platelet mean volumeon 11-25-2021 Platelet mean volume (Bld) [Entitic vol] 11.0 fL 6.2-12.0 [facility] Work Phone: Determination of erythrocyte mean corpuscular volume (MCV)on 11-25-2021 MCV (RBC) [Entitic vol] 87.5 fL 80-[address] [facility] Work Phone: [phone] Hematocrit Auto (Bld) [Volum e fraction]on 11-25-2021 Hematocrit (Bld) [Volume fraction] 46.1 % 40-54 [facility] Work Phone: Laboratory - Chemistry and C hemistry - challengeon 11-25-2021 ALP [Catalytic activity/Vol] 74 U/L 45-117 [facility] Work Phone: ALT [Catalytic activity/Vol] 46 U/L 16-61 [facility] Work Phone: [phone] CO2 [Moles/Vol] 26.0 mmol/L 21.0-32.0 [facility] Work Phone: Globulin (S) [Mass/Vol] 3.8 g/dL 2.2-4.[address] [facility] Work Phone: [phone] Urea nitrogen/Creatinine [Mass ratio] 16.4 mg/mg 10-20 [facility] Work Phone: [phone] Laboratory - Hematology and Cell countson 11-25-2021 Erythrocyte distribution width (RBC) [Entitic vol] 45.0 fL 35.1-43.9 [facility] Work Phone: [phone] Erythrocyte distribution width (RBC) [Ratio] 14.0 % 11.6-14.6 [facility] Work Phone: Immature granulocytes/100 WBC (Bld) 1.600 % 0.0-0.9 [facility] Work Phone: Comment on above: IG% - Immature Granu locytes (promyelocytes, myelocytes and metamyelocytes) > 1% indicates that a LEFT SHIFT is Present. MCH (RBC) [Entitic mass] 30.0 pg 27.0-32.0 [facility] Work Phone: Nucleated RBC/100 WBC (Bld) [Ratio] 0 % 0-5 [facility] Work Phone: [phone] MCHC Auto (RBC) [Mass/Vol]on 11-25-2021 MCHC (RBC) [Mass/Vol] 34.3 g/dL 32-36 [facility] Work Phone: No Panel Informationon 11-25 Estimated GFR (MDRD) Amer 73 mL/min >60 [facility] Work Phone: Comment on above: GFR Calc Estimated GFR (MDRD) Non-Af Amer 60 mL/min >60 [facility] Work Phone: [phone] Comment on above: Non- GFR Calc Prostate Specific Antigen Screen 0.77 ng/mL 0.00-4.00 [facility] Work Phone: Comment on above: This test was perfor med using the TPSA assay method for thequalifyor chemistry system. Values obtained with differentassay methods cannot be used interchangably.When changing PSA assays in the course of monitoring apatient, additional sequential testing should be carriedout to confirm baseline values. Thyroid Stimulating Hormone (TSH) 2.09 uIU/mL 0.358-3.74 [facility] Work Phone: Platelets bldon 11-25-2021 Platelets (Bld) [#/Vol] 244 10*3/uL 150-450 [facility] Work Phone: Serum or plasma albumin andrei urement (mass/volume)on 11-25-2021 Albumin [Mass/Vol] 3.7 g/dL 3.2-5.0 [facility] Work Phone: Serum or plasma albumin/glob ulin mass ratioon 11-25-2021 Albumin/Globulin [Mass ratio] 1.0 {ratio} 0.9-2.4 [facility] Work Phone: [phone] Serum or plasma calcium andrei urement (mass/volume)on 11-25-2021 Calcium [Mass/Vol] 9.1 mg/dL 8.5-10.1 [facility] Work Phone: Serum or plasma creatinine m easurement (mass/volume)on 11-25-2021 Creatinine [Mass/Vol] 1.28 mg/dL 0.70-1.30 [facility] Work Phone: Comment on above: The validity of the calculated GFR & GFRAA in patients over 70 years has not been determined. Clinical correlation is essential. Serum or plasma urea nitroge n measurement (mass/volume)on 11-25-2021 Urea nitrogen [Mass/Vol] 21 mg/dL 7-18 [facility] Work Phone: [phone] Thin prep Papanicolaou smear with manual screeningon 11-25-2021 Thin prep Papanicolaou smear with manual screening 27 U/L 15-37 [facility] Work Phone: Thin prep Papanicolaou smear with manual screening 9 5-15 [facility] Work Phone: CBC Auto Differentialon 03-01 Neutrophils Absolute 7.6 K/uL High 1.4 - 6 .5 K/uL [place] CBC With Platelet and Differ entialon 03-20-2020 Basophils (Bld) [#/Vol] 0.1 10*3/uL Normal 0.0-0.2 [place] Comment on above: Performed By: #### C BCWD #### [facility] [address] [facility] [address] Basophils/100 WBC (Bld) 0.8 % Normal M [place] Comment on above: Performed By: #### C BCWD #### [facility] [address] [place] [address] Eosinophils (Bld) [#/Vol] 0.3 10*3/uL Normal 0.0-0.7 [place] Comment on above: Performed By: #### C BCWD #### [facility] [address] [place] [address] Eosinophils/100 WBC (Bld) 2.9 % Normal [place] Comment on above: Performed By: #### C BCWD #### [facility] [address] [place] [address] Erythrocyte distribution width (RBC) [Ratio] 13.8 % Normal 11.5-14.5 [place] Comment on above: Performed By: #### C BCWD #### [facility] [address] [place] [address] Hematocrit (Bld) [Volume fraction] 46.5 % Normal 42.0-52.0 [place] Comment on above: Performed By: #### C BCWD #### [facility] [address] [place] [address] Hemoglobin (Bld) [Mass/Vol] 15.8 g/dL Normal 14.0-18.0 [place] Comment on above: Performed By: #### C BCWD #### [facility] [address] [place] [address] Lymphocytes (Bld) [#/Vol] 1.9 10*3/uL Normal 1.0-4.8 [place] Comment on above: Performed By: #### C BCWD #### [facility] [address] [place] [address] Lymphocytes/100 WBC (Bld) 17.6 % Normal [place] Comment on above: Performed By: #### C BCWD #### [facility] [address] [place] [address] MCH (RBC) [Entitic mass] 30.3 pg Normal 27.0-31.3 [place] Comment on above: Performed By: #### C BCWD #### [facility] [address] [place] [address] MCHC (RBC) [Mass/Vol] 34.1 % Normal 33.0-37.0 [place] Comment on above: Performed By: #### C BCWD #### [facility] [address] [place] [address] MCV (RBC) [Entitic vol] 88.9 fL Normal 80.0-100.0 [place] Comment on above: Performed By: #### C BCWD #### [facility] [address] [place] [address] Monocytes (Bld) [#/Vol] 0.8 10*3/uL Normal 0.2-0.8 [place] Comment on above: Performed By: #### C BCWD #### [facility] [address] [place] [address] Monocytes/100 WBC (Bld) 7.9 % Normal [place] Comment on above: Performed By: #### C BCWD #### [facility] [address] [place] [address] Neutrophils (Bld) [#/Vol] 7.6 10*3/uL Critically high 1.4-6.5 [facility] Comment on above: Performed By: #### C BCWD #### [facility] [address] [place] [address] Neutrophils/100 WBC (Bld) 70.8 % Normal [place] Comment on above: Performed By: #### C BCWD #### [facility] [address] [place] [address] Platelets (Bld) [#/Vol] 244 10*3/uL Normal 130-400 [place] Comment on above: Performed By: #### C BCWD #### [facility] [address] [place] [address] RBC (Bld) [#/Vol] 5.23 10*6/uL Normal 4.70-6.10 [place] Comment on above: Performed By: #### C BCWD #### [facility] [address] [place] [address] WBC (Bld) [#/Vol] 10.7 10*3/uL Normal 4.8-10.8 [place] Comment on above: Performed By: #### C BCWD #### [facility] [address] [place] [address] Comprehensive Metabolic Pane david 03-20-2020 Albumin [Mass/Vol] 4.5 g/dL Normal 3.5-4.6 [facility] Comment on above: Performed By: #### C MP #### [facility] [address] [place] [address] ALP [Catalytic activity/Vol] 78 U/L Normal 35-104 [facility] Comment on above: Performed By: #### C MP #### [facility] [address] [place] [address] ALT [Catalytic activity/Vol] 38 U/L Normal 0-41 [facility] Comment on above: Performed By: #### C MP #### [facility] [address] [place] [address] Anion gap [Moles/Vol] 13 mmol/L Normal 9-15 [facility] Comment on above: Performed By: #### C MP #### [facility] [address] [place] [address] AST [Catalytic activity/Vol] 28 U/L Normal 0-40 [facility] Comment on above: Performed By: #### C MP #### [facility] [address] [place] [address] Bilirubin [Mass/Vol] 0.6 mg/dL Normal 0.2-0.7 [facility] Comment on above: Performed By: #### C MP #### [facility] [address] [place] [address] Calcium [Mass/Vol] 10.0 mg/dL Critically high 8.5-9.9 [facility] Comment on above: Performed By: #### C MP #### [facility] [address] [place] [address] Chloride [Moles/Vol] 97 mmol/L Normal 95-107 [facility] Comment on above: Performed By: #### C MP #### [facility] [address] [place] [address] CO2 [Moles/Vol] 25 mmol/L Normal 20-31 [facility] Comment on above: Performed By: #### C MP #### [facility] [address] [place] [address] Creatinine [Mass/Vol] 0.98 mg/dL Normal 0.70-1.20 [facility] Comment on above: Performed By: #### C MP #### [facility] [address] [place] [address] GFR/1.73 sq M predicted among blacks MDRD (S/P/Bld) [Vol rate/Area] mL/min/{1.73_m2} Normal >60 [facility] Comment on above: Result Comment: >60 mL/min/1.73m2 EGFR, calc. for ages 18 and older using the MDRD formula (not corrected for weight), is valid for stable renal function. Performed By: #### C MP #### [facility] [address] [place] [address] GFR/1.73 sq M.predicted MDRD (S/P/Bld) [Vol rate/Area] mL/min/{1.73_m2} Normal >60 [facility] Comment on above: Result Comment: >60 mL/min/1.73m2 EGFR, calc. for ages 18 and older using the MDRD formula (not corrected for weight), is valid for stable renal function. Performed By: #### C MP #### [facility] [address] [place] [address] Globulin (S) [Mass/Vol] 3.2 g/dL Normal 2.3-3.5 [facility] Comment on above: Performed By: #### C MP #### [facility] [address] [place] [address] Glucose [Mass/Vol] 97 mg/dL Normal 70-99 [facility] Comment on above: Performed By: #### C MP #### [facility] [address] [place] [address] Potassium [Moles/Vol] 4.1 mmol/L Normal 3.4-4.9 [facility] Comment on above: Performed By: #### C MP #### [facility] [address] [place] [address] Protein [Mass/Vol] 7.7 g/dL Normal 6.3-8.0 [facility] Comment on above: Performed By: #### C MP #### [facility] [address] [place] [address] Sodium [Moles/Vol] 135 mmol/L Normal 135-144 [facility] Comment on above: Performed By: #### C MP #### [facility] [address] [place] [address] Urea nitrogen [Mass/Vol] 19 mg/dL Normal 8-23 [facility] Comment on above: Performed By: #### C MP #### [facility] [address] [place] [address] Albumin [Mass/Vol] 4.5 g/dL 3.5 - 4.6 g/dL [place] ALP [Catalytic activity/Vol] 78 U/L 35 - 104 U/L [place] ALT [Catalytic activity/Vol] 38 U/L 0 - 41 U/L [facility], [place] Anion gap [Moles/Vol] 13 mmol/L [place] AST [Catalytic activity/Vol] 28 U/L 0 - 40 U/L [place] Bilirubin Ql (U) 0.6 mg/dL 0.2 - 0.7 mg/dL [place] Calcium [Mass/Vol] 10.0 mg/dL High 8.5 - 9.9 mg/dL [place] Chloride [Moles/Vol] 97 mmol/L [place] CO2 [Moles/Vol] 25 mmol/L [place] Creatinine [Mass/Vol] 0.98 mg/dL 0.7 - 1.2 mg/dL [place] GFR >60.0 >60 [place] Comment on above: >60 mL/min/1.73m2 EG FR, calc. for ages 18 and older using the MDRD formula (not corrected for weight), is valid for stable renal function. GFR Non- >60.0 >60 [place] Comment on above: >60 mL/min/1.73m2 EG FR, calc. for ages 18 and older using the MDRD formula (not corrected for weight), is valid for stable renal function. Globulin (S) [Mass/Vol] 3.2 g/dL 2.3 - 3.5 g/dL [place] Glucose [Mass/Vol] 97 mg/dL 70 - 99 mg/dL [place] Potassium [Moles/Vol] 4.1 mmol/L [place] Protein [Mass/Vol] 7.7 g/dL 6.3 - 8 g/dL [place] Sodium [Moles/Vol] 135 mmol/L [place] Urea nitrogen [Mass/Vol] 19 mg/dL 8 - 23 mg/d L [place] Lipid Panelon 03-20-2020 Cholesterol [Mass/Vol] 272 mg/dL Critically high 0-199 [facility] Comment on above: Result Comment: ATP III Cholesterol Classification is High. Performed By: #### L IPID #### [facility] [address] [place] [address] Cholesterol in HDL [Mass/Vol] 39 mg/dL Low 40-59 [facility] Comment on above: Result Comment: ATP III HDL Cholestrol Classification is low. Expected Values: Males: >55 = No Risk 35-55 = Moderate Risk <35 = High Risk Females: >65 = No Risk 45-65 = Moderate Risk <45 = High Risk NCEP Guidelines: Third Report June 2000 >59 = negative risk factor for CHD <40 = major risk factor for CHD Performed By: #### L IPID #### [facility] [address] [facility] [address] Cholesterol in LDL [Mass/Vol] 167 mg/dL Critically high 0-129 [facility] Comment on above: Result Comment: ATP III LDL Classification is High. Performed By: #### L IPID #### [facility] [address] [facility] [address] Triglyceride [Mass/Vol] 332 mg/dL Critically high 0-150 [facility] Comment on above: Result Comment: ATP III Triglycerides Classification is High. Performed By: #### L IPID #### [facility] [address] [facility] [address] Cholesterol [Mass/Vol] 272 mg/dL High 0 - 1 99 mg/dL [place] Comment on above: ATP III Cholesterol Classification is High. Cholesterol in HDL [Mass/Vol] 39 mg/dL Low 40 - 59 mg/dL [place] Comment on above: ATP III HDL Cholestr ol Classification is low. Expected Values: Males: >55 = No Risk 35-55 = Moderate Risk <35 = High Risk Females: >65 = No Risk 45-65 = Moderate Risk <45 = High Risk NCEP Guidelines: Third Report June 2000 >59 = negative risk factor for CHD <40 = major risk factor for CHD Cholesterol in LDL [Mass/Vol] 167 mg/dL High 0 - 129 mg/dL [place] Comment on above: ATP III LDL Classifi cation is High. Triglyceride [Mass/Vol] 332 mg/dL High 0 - 150 mg/dL [place] Comment on above: ATP III Triglyceride s Classification is High. Otheron 03-20-2020 Interpretation and review of laboratory results Abnormal [place] Prostate Specific Ag Screeno n 03-20-2020 Prostate Specific Ag Screen 0.53 ng/mL Normal 0.00-5.40 [facility] Comment on above: Result Comment: When the Total PSA is between 3.00 and 10.00 ng/mL, consider requesting a Free PSA to aid in diagnosis. Performed By: #### P SA #### [facility] [address] [facility] [address] OPERATIVE REPORTon 0 OPERATIVE REPORT [facility] [address] [place] [address] OPERATIVE REPORT PATIENT NAME: LANEY VAN : 1960 MED REC NO: [id number] ROOM: ACCOUNT NO: [id number] ADMIT DATE: 04/04/2019 PROVIDER: Kirsten Ramos MD DATE OF PROCEDURE: 04/04/2019 PATIENT OF: Rosales Orellana MD PREOPERATIVE DIAGNOSIS: Umbilical hernia. POSTOPERATIVE DIAGNOSIS: Umbilical hernia. PROCEDURE: Repair of umbilical hernia with mesh. SURGEON: Kirsten Ramos MD ANESTHESIA: General with regional. COMPLICATIONS: None. ESTIMATED BLOOD LOSS: Less than 50 mL. HISTORY: The patient is a 58-year-old male who has a symptomatic umbilical hernia. After discussing with him his options of therapy, he was agreeable to hernia repair. The procedure as well as the risks and complications were discussed including infections, blood loss, damage to surrounding structures, recurrence, and even the possibility of needing further surgery if any of these were to occur were all discussed and he was agreeable to the procedure. DESCRIPTION OF PROCEDURE: The patient brought in the operative suite, placed in the supine position where anesthesia was induced and he was intubated. He was given a muscle block done prior by Anesthesia. The abdomen was then prepped and draped in a sterile fashion. Timeout was called. The patient and procedure were properly identified. A circumumbilical incision was then made inferiorly and carried down through the subcutaneous tissue to the hernia sac. The sac was dissected away from the overlying skin and reduced back into the fascial defect that was about 1 cm in diameter. I elected to place a small PerFix plug into place. It was placed into the preperitoneal space and sutured circumferentially with 2-0 Prolene. 0 Prolene was then used to reapproximate the fascia. Afterwards, irrigation was done. Sponge, needle, and instrument counts were correct and there was good hemostasis. 3-0 Vicryl was then used to tack the umbilical skin down to the fascia, 3-0 Vicryl for the subcutaneous tissue. The skin was closed with 4-0 Monocryl with skin glue on the skin edge. He tolerated the procedure well, went to Recovery in stable condition. I spoke with family at the end of the procedure. KIRSTEN RAMOS MD [id number] Doc#: [id number] CC: Normal [facility] Basic Metabolic PanelOrdered By: Manoj Fernández on 03-13-2019 Anion gap [Moles/Vol] 14 mmol/L [employer] Work Phone: Calcium [Mass/Vol] 9.9 mg/dL 8.5 - 9.9 mg/dL [employer] Phone: Chloride [Moles/Vol] 100 mmol/L [facility] [employer] Work Phone: CO2 [Moles/Vol] 25 mmol/L [facility] Work Phone: Creatinine [Mass/Vol] 1.22 mg/dL High 0.7 - 1.2 mg/dL [employer] Phone: GFR >60.0 >60 [employer] Phone: Comment on above: >60 mL/min/1.73m2 EG FR, calc. for ages 18 and older using the MDRD formula (not corrected for weight), is valid for stable renal function. GFR Non- >60.0 >60 [employer] Phone: Comment on above: >60 mL/min/1.73m2 EG FR, calc. for ages 18 and older using the MDRD formula (not corrected for weight), is valid for stable renal function. Glucose [Mass/Vol] 146 mg/dL High 70 - 99 mg/dL [employer] Phone: Interpretation and review of laboratory results Abnormal [employer] Phone: Potassium [Moles/Vol] 4.0 mmol/L [employer] Work Phone: Sodium [Moles/Vol] 139 mmol/L [facility] [employer] Phone: Urea nitrogen [Mass/Vol] 25 mg/dL High 6 - 20 mg/d L [facility] Phone: CBC Auto DifferentialOrdered By: Manoj Fernández on 03-13-2019 Basophils (Bld) [#/Vol] 0.1 10*3/uL 0 - 0.2 K/u L [facility] Phone: Basophils/100 WBC (Bld) 0.6 % [facility] Phone: Eosinophils (Bld) [#/Vol] 0.2 10*3/uL 0 - 0.7 K/uL [facility] Phone: Eosinophils/100 WBC (Bld) 1.8 % [facility] Phone: Erythrocyte distribution width (RBC) [Ratio] 13.0 % 11.5 - 14.5 % [facility] Phone: Hematocrit (Bld) [Volume fraction] 47.2 % 42 - 52 % [facility] Phone: Hemoglobin (Bld) [Mass/Vol] 15.9 g/dL 14 - 18 g/dL [facility] Phone: Interpretation and review of laboratory results Abnormal [facility] Phone: Lymphocytes (Bld) [#/Vol] 1.5 10*3/uL 1 - 4.8 K/uL [facility] Phone: Lymphocytes/100 WBC (Bld) 14.1 % [employer] Phone: MCH (RBC) [Entitic mass] 29.8 pg 27 - 31.3 p g [facility] Phone: MCHC 33.8 % 33 - 37 % [facility] Phone: MCV (RBC) [Entitic vol] 88.3 fL 80 - 100 fL [employer] Phone: Monocytes (Bld) [#/Vol] 0.7 10*3/uL 0.2 - 0.8 K/uL [employer] Phone: Monocytes/100 WBC (Bld) 6.3 % M [employer] Phone: Neutrophils Absolute 8.3 K/uL High 1.4 - 6 .5 K/uL [employer] Phone: Neutrophils/100 WBC (Bld) 77.2 % [employer] Phone: Platelets (Bld) [#/Vol] 268 10*3/uL 130 - 400 K/uL [employer] Phone: RBC (Bld) [#/Vol] 5.35 10*6/uL [employer] Phone: WBC (Bld) [#/Vol] 10.8 10*3/uL 4.8 - 10.8 K/uL [employer] Phone: Lactic Acid, PlasmaOrdered B y: Manoj Pradeep on 03-13-2019 Lactate [Moles/Vol] 1.5 mmol/L 0.5 - 2. 2 mmol/L [employer] Phone: CBC Auto DifferentialOrdered By: Rosales Orellana on 02-27-2019 Basophils (Bld) [#/Vol] 0.1 10*3/uL 0 - 0.2 K/u L [employer] Phone: Basophils/100 WBC (Bld) 1.1 % [facility] [employer] Phone: Eosinophils (Bld) [#/Vol] 0.2 10*3/uL 0 - 0.7 K/uL [employer] Phone: Eosinophils/100 WBC (Bld) 2.9 % [employer] Phone: Erythrocyte distribution width (RBC) [Ratio] 13.7 % 11.5 - 14.5 % [employer] Phone: Hematocrit (Bld) [Volume fraction] 44.6 % 42 - 52 % [employer] Phone: Hemoglobin (Bld) [Mass/Vol] 15.0 g/dL 14 - 18 g/dL [employer] Phone: Lymphocytes (Bld) [#/Vol] 1.5 10*3/uL 1 - 4.8 K/uL [employer] Phone: Lymphocytes/100 WBC (Bld) 18.1 % [employer] Phone: MCH (RBC) [Entitic mass] 29.8 pg 27 - 31.3 p g [employer] Phone: MCHC 33.7 % 33 - 37 % [employer] Phone: MCV (RBC) [Entitic vol] 88.5 fL 80 - 100 fL [employer] Phone: Monocytes (Bld) [#/Vol] 0.6 10*3/uL 0.2 - 0.8 K/uL [employer] Phone: Monocytes/100 WBC (Bld) 7.5 % [facility] [employer] Phone: Neutrophils Absolute 5.7 K/uL 1.4 - 6 .5 K/uL [employer] Phone: Neutrophils/100 WBC (Bld) 70.4 % [employer] Phone: Platelets (Bld) [#/Vol] 242 10*3/uL 130 - 400 K/uL [employer] Phone: RBC (Bld) [#/Vol] 5.04 10*6/uL [employer] Phone: WBC (Bld) [#/Vol] 8.0 10*3/uL 4.8 - 10.8 K/uL [facility] [employer] Phone: Hemoglobin [id number] By: Tristen Orellana on 02-27-2019 HbA1c (Bld) [Mass fraction] 6.2 % High 4.8 - 5.9 % [facility] [employer] Phone: Interpretation and review of laboratory results Abnormal [facility] [employer] Phone: CBC Auto Differentialon 10-0 Basophils (Bld) [#/Vol] 0.1 10*3/uL 0 - 0.2 K/u L [place] Basophils/100 WBC (Bld) 0.7 % [place] Eosinophils (Bld) [#/Vol] 0.2 10*3/uL 0 - 0.7 K/uL [place] Eosinophils/100 WBC (Bld) 1.5 % [place] Erythrocyte distribution width (RBC) [Ratio] 14.0 % 11.5 - 14.5 % [place] Hematocrit (Bld) [Volume fraction] 47.8 % 42 - 52 % [place] Hemoglobin (Bld) [Mass/Vol] 16.1 g/dL 14 - 18 g/dL [place] Interpretation and review of laboratory results Abnormal [place] Lymphocytes (Bld) [#/Vol] 1.5 10*3/uL 1 - 4.8 K/uL [place] Lymphocytes/100 WBC (Bld) 11.5 % [place] MCH (RBC) [Entitic mass] 29.8 pg 27 - 31.3 p g [place] MCHC (RBC) [Mass/Vol] 33.7 % 33 - 37 % [place] MCV (RBC) [Entitic vol] 88.3 fL 80 - 100 fL [place] Monocytes (Bld) [#/Vol] 1.0 10*3/uL High 0.2 - 0.8 K/uL [place] Monocytes/100 WBC (Bld) 7.2 % [place] Neutrophils Absolute 10.7 K/uL High 1.4 - 6 .5 K/uL [place] Neutrophils/100 WBC (Bld) 79.1 % [place] Platelets (Bld) [#/Vol] 243 10*3/uL 130 - 400 K/uL [place] RBC (Bld) [#/Vol] 5.41 10*6/uL [place] WBC (Bld) [#/Vol] 13.5 10*3/uL High 4.8 - 10.8 K/uL [place] Comprehensive Metabolic Pane david 12-01-2018 Albumin [Mass/Vol] 4.2 g/dL 3.5 - 4.6 g/dL [place] ALP [Catalytic activity/Vol] 72 U/L 35 - 104 U/L [place] ALT [Catalytic activity/Vol] 27 U/L 0 - 41 U/L [place] Anion gap [Moles/Vol] 13 mmol/L [place] AST [Catalytic activity/Vol] 21 U/L 0 - 40 U/L [place] Bilirubin Ql (U) 0.5 mg/dL 0.2 - 0.7 mg/dL [place] Calcium [Mass/Vol] 9.1 mg/dL 8.5 - 9.9 mg/dL [place] Chloride [Moles/Vol] 101 mmol/L [place] CO2 [Moles/Vol] 24 mmol/L [place] Creatinine [Mass/Vol] 1.05 mg/dL 0.7 - 1.2 mg/dL [place] GFR >60.0 >60 [place] Comment on above: >60 mL/min/1.73m2 EG FR, calc. for ages 18 and older using the MDRD formula (not corrected for weight), is valid for stable renal function. GFR Non- >60.0 >60 [place] Comment on above: >60 mL/min/1.73m2 EG FR, calc. for ages 18 and older using the MDRD formula (not corrected for weight), is valid for stable renal function. Globulin (S) [Mass/Vol] 3.3 g/dL 2.3 - 3.5 g/dL [place] Glucose [Mass/Vol] 119 mg/dL High 70 - 99 mg/dL [place] Potassium [Moles/Vol] 4.7 mmol/L [place] Protein [Mass/Vol] 7.5 g/dL 6.3 - 8 g/dL [place] Sodium [Moles/Vol] 138 mmol/L [place] Urea nitrogen [Mass/Vol] 19 mg/dL 6 - 20 mg/d L [place] Hemoglobin A1Con 12-01-2018 HbA1c (Bld) [Mass fraction] 6.0 % High 4.8 - 5.9 % [place] Interpretation and review of laboratory results Abnormal [place] Hepatitis C Antibodyon 12-01 Hep C Ab Interp Non-reactive [place] Lipid Panelon 12-01-2018 Cholesterol [Mass/Vol] 253 mg/dL High 0 - 1 99 mg/dL [place] Comment on above: ATP III Cholesterol Classification is High. Cholesterol in HDL [Mass/Vol] 33 mg/dL Low 40 - 59 mg/dL [place] Comment on above: ATP III HDL Cholestr ol Classification is low. Expected Values: Males: >55 = No Risk 35-55 = Moderate Risk <35 = High Risk Females: >65 = No Risk 45-65 = Moderate Risk <45 = High Risk NCEP Guidelines: Third Report June 2000 >59 = negative risk factor for CHD <40 = major risk factor for CHD Cholesterol in LDL [Mass/Vol] 169 mg/dL High 0 - 129 mg/dL [place] Comment on above: ATP III LDL Classifi cation is High. Triglyceride [Mass/Vol] 256 mg/dL High 0 - 150 mg/dL [place] Comment on above: ATP III Triglyceride s Classification is High. Otheron 12-01-2018 Interpretation and review of laboratory results Abnormal [place] TSH without Reflexon 019 TSH Qn 2.560 m[IU]/L [facility], [place] Culture, Throaton 05-04-2018 Culture, Throat ORDERED BY: FLORENTINO SEE SOURCE: Throat Throat COLLECTED: 05/04/18 08:18 ANTIBIOTICS AT CANDIE.: RECEIVED : 05/04/18 20:57 Culture, Throat FINAL 05/07/18 09:13 No Beta Streptococcus isolated Heavy growth Yeast No further workup Normal [facility] Vital Signs Date Time Vital Sign Value Performing Clinician Faci lity 11-19-2024 08:29-0400 Body height 172.[address] Ike Harvey MD Work Phone: 8([phone] [place] [address] 11-19-2024 08:29-0400 Body mass index (BMI) [Ratio] 33.3 kg/m2 Dr. Ike Harvey MD Work Phone: [phone])[phone] [place] [address] 11-19-2024 08:29-0400 Body weight 99.[address] Ike Harvey MD Work Phone: 7(610)[phone] [place] [address] 11-19-2024 08:29-0400 Diastolic blood pressure 84 mm[Hg] Dr. Ike Harvey MD Work Phone: 7(343)[phone] [place] [address] 11-19-2024 08:29-0400 Heart rate 59 /min Dr. Ike Harvey MD Work Phone: [facility] 11-19-2024 08:29-0400 Respiratory rate 16 /min Dr. Ike Harvey MD Work Phone: 2(009)[phone] [place] [address] 11-19-2024 08:29-0400 Systolic blood pressure 133 mm[Hg] Dr. Ike Harvey MD Work Phone: 8(728)[phone] [place] [address] 05-27-2024 13:39-0400 Body height 172.[address] Ike Harvey MD Work Phone: 7(676)[phone] [place] [address] 05-27-2024 13:39-0400 Body mass index (BMI) [Ratio] 34.9 kg/m2 Dr. Ike Harvey MD Work Phone: 6(805)[phone] [place] [address] 05-27-2024 13:39-0400 Body temperature 98.2 [degF] Dr. Ike Harvey MD Work Phone: [facility] 05-27-2024 13:39-0400 Body weight 104.[address] Ike Harvey MD Work Phone: [facility] 05-27-2024 13:39-0400 Diastolic blood pressure 86 mm[Hg] Dr. Ike Harvey MD Work Phone: [facility] 05-27-2024 13:39-0400 Heart rate 77 /min Dr. Ike Harvey MD Work Phone: [facility] 05-27-2024 13:39-0400 SaO2% (BldA) [Mass fraction] 97 % Dr. Ike Harvey MD Work Phone: [facility] 05-27-2024 13:39-0400 Systolic blood pressure 132 mm[Hg] Dr. Ike Harvey MD Work Phone: [facility] 07-14-2022 08:29-0400 Diastolic blood pressure 88 mm[Hg] [facility] 07-14-2022 08:29-0400 Heart rate 64 /min [facility] 07-14-2022 08:29-0400 Respiratory rate 16 /min [facility] 07-14-2022 08:29-0400 SaO2% (BldA) [Mass fraction] 98 % [facility] 07-14-2022 08:29-0400 Systolic blood pressure 141 mm[Hg] [facility] 07-14-2022 06:45-0400 Body height 172.72 cm [facility] 07-14-2022 06:45-0400 Body mass index (BMI) [Ratio] 34.2 kg/m2 [facility] 07-14-2022 06:45-0400 Body temperature 96.5 [degF] [facility] 07-14-2022 06:45-0400 Body weight 102 kg [facility] 01-17-2022 12:24-0500 Body height 172.[address] Ike Harvey Work Phone: [facility] Work Phone: 01-17-2022 12:24-0500 Body mass index (BMI) [Ratio] 33 kg/m2 Dr. Ike Harvey Work Phone: [facility] Work Phone: 01-17-2022 12:24-0500 Body temperature 97.8 [degF] Dr. Ike Harvey Work Phone: [facility] Work Phone: 01-17-2022 12:24-0500 Body weight 98.[address] Ike Harvey Work Phone: [facility] Work Phone: 01-17-2022 12:24-0500 Diastolic blood pressure 95 mm[Hg] Dr. Ike Harvey Work Phone: [facility] Work Phone: 01-17-2022 12:24-0500 Heart rate 79 /min Dr. Ike Harvey Work Phone: [facility] Work Phone: 01-17-2022 12:24-0500 Respiratory rate 18 /min Dr. Ike Harvey Work Phone: [facility] Work Phone: 01-17-2022 12:24-0500 SaO2% (BldA) [Mass fraction] 98 % Dr. Ike Harvey Work Phone: [facility] Work Phone: 01-17-2022 12:24-0500 Systolic blood pressure 151 mm[Hg] Dr. Ike Harvey Work Phone: [facility] Work Phone: 04-04-2019 13:47-0500 BP Diastolic 101 mm[Hg] [facility] Work Phone: 04-04-2019 13:47-0500 BP Systolic 141 mm[Hg] [facility] Work Phone: 04-04-2019 13:47-0500 Pulse (Heart Rate) 69 /min Kirsten Ramos [employer] Work Phone: 04-04-2019 13:47-0500 Pulse Oximetry 96 % Kirsten Ramos [employer] Work Phone: 04-04-2019 13:47-0500 Respiratory Rate 16 /min Kirsten Ramos [employer] Work Phone: 04-04-2019 12:49-0500 Body Temperature 97.2 [degF] Kirsten Ramos [employer] Work Phone: 04-04-2019 09:16-0500 BMI (Body Mass Index) 32.89 kg/m2 Kirsten Ramos [employer] Work Phone: 04-04-2019 09:16-0500 Body weight 95.25 kg Kirsten [employer] Work Phone: 04-04-2019 09:16-0500 Height 170.2 cm Kirsten Ramos [employer] Work Phone: 03-13-2019 14:42-0500 Body height 170.2 cm Manoj Fernández [employer] Work Phone: 03-13-2019 14:42-0500 Body mass index (BMI) [Ratio] 32.89 kg/m2 Manoj Fernández [employer] Work Phone: 03-13-2019 14:42-0500 Body temperature 98.4 [degF] [facility] Work Phone: 03-13-2019 14:42-0500 Body weight 95.25 kg Manoj Fernández [employer] Work Phone: 03-13-2019 14:42-0500 Diastolic blood pressure 94 mm[Hg] Manoj Fernández [employer] Work Phone: 03-13-2019 14:42-0500 Heart rate 83 /min Manoj Fernández [employer] Work Phone: 03-13-2019 14:42-0500 Respiratory rate 16 /min Manoj Fernández DO [facility] Work Phone: 03-13-2019 14:42-0500 SaO2% (BldA) [Mass fraction] 91 % Manoj Fernández DO [facility] Work Phone: 03-13-2019 14:42-0500 Systolic blood pressure 143 mm[Hg] Manoj Fernández DO [facility] Work Phone: Encounters Encounter Date Encounter Type Care Provider Facility Start: 12-17-2024 ambulatory Jose Alejandro Ornelas CARDIOLOGY PHYSICIAN Facility :[facility] Start: 12-04-2024 ambulatory Jose Alejandro Ornelas NP Facility :[facility] Start: 11-19-2024 End: 11-19-2024 Patient encounter procedure Jose Alejandro Ornelas CARDIOLOGY PHYSICIAN-C -[facility] Work Phone: Start: 11-19-2024 End: 11-19-[address] Ike Harvey MD Work Phone: -[facility] Start: 10-30-2024 End: 10-30-[address] Ike Hravey MD Work Phone: -Radiology [facility] Start: 10-30-2024 End: 10-30-[address] Ike Harvey MD -Radiology [facility] Work Phone: Start: 10-30-2024 End: 10-30-2024 ambulatory Ike Harvey Facility:[facility] Start: 07-18-2024 End: 07-18-[address] Ike Harvey MD Work Phone: [facility] Work Phone: Start: 07-18-2024 End: 07-18-[address] Ike Harvey MD -Laboratory Work Phone: Start: 07-18-2024 End: 07-18-2024 ambulatory Ike Harvey Facility:[facility] Start: 05-27-2024 End: 05-27-2024 Patient encounter procedure Jose Alejandro Ornelas CARDIOLOGY PHYSICIAN-C -[facility] Work Phone: Start: 05-27-2024 End: 05-27-2024 ambulatory Ike Hravey Facility:[facility] Start: 01-19-2024 End: 01-19-2024 ambulatory Ike Jalloh Wes Facility:[facility] Start: 12-15-2023 ambulatory Jose Alejandro Ryan Johnson CARDIOLOGY PHYSICIAN Facility :[facility] Start: 12-15-2023 End: 12-15-2023 ambulatory Jose Alejandor Ornelas CARDIOLOGY PHYSICIAN Facility:[facility] Start: 08-13-2022 End: 08-13-2022 ambulatory [facility] Work Phone: Start: 08-13-2022 End: 08-13-2022 Patient encounter procedure [facility]Laboratory Start: 07-28-2022 End: 07-28-2022 ambulatory [facility] Work Phone: Start: 07-28-2022 End: 07-28-2022 Patient encounter procedure [facility]-Laboratory, Phy Office 3rd Flr Start: 07-14-2022 End: 07-14-2022 Emergency department patient visit [facility] Start: 01-17-2022 End: 01-17-2022 Emergency department patient visit Dr. Ike Harvey Work Phone: [facility]Emergency [facility] Start: 01-05-2022 End: 01-05-[address] Ike Harvey Work Phone: [facility] Work Phone: Start: 01-05-2022 End: 01-05-[address] Ike Harvey Work Phone: [facility] Start: 12-31-2021 Non-patient / Non-visit Dr. Lux Harvey Work Phone: [facility] Start: 12-31-2021 End: 12-31-[address] Ike Harvey Work Phone: [facility] Work Phone: Start: 12-31-2021 End: 12-31-[address] Ike Harvey Work Phone: [facility]-Cardiovascular Services Start: 11-25-2021 End: 11-25-2021 ambulatory [facility] Work Phone: Start: 11-25-2021 End: 11-25-2021 Patient encounter procedure [facility]-Laboratory, Phy Office 3rd Flr Start: 07-10-2020 End: 07-13-2020 ambulatory [facility] Start: 07-10-2020 End: 07-12-2020 Subsequent hospital visit by physician [facility] Schedule [facility] Comment on above: Arrived Start: 06-17-2020 End: 06-20-2020 ambulatory [facility] Start: 06-17-2020 End: 06-19-2020 Subsequent hospital visit by physician [facility] Schedule [facility] Comment on above: Arrived Start: 03-20-2020 End: 03-21-2020 Patient encounter procedure [facility] Start: 03-20-2020 End: 03-20-2020 Subsequent hospital visit by physician [facility] Comment on above: Screening for prosta te cancer; Well adult exam; Mixed hyperlipidemia Start: 04-04-2019 End: 04-04-2019 Patient encounter procedure [facility] Start: 04-04-2019 End: 04-04-2019 Subsequent hospital visit by physician Kirsten Ramos Work Phone: [facility] Comment on above: Umbilical hernia wit hout obstruction and without gangrene (Primary Dx) Start: 03-29-2019 End: 03-30-2019 Patient encounter procedure [facility] Start: 03-29-2019 End: 03-29-2019 Subsequent hospital visit by physician Rosales Orellana MD Work Phone: [facility] Cardiopulmonary Department Start: 03-13-2019 End: 03-13-2019 Emergency department patient visit Manoj Fernández DO [facility] ED Comment on above: Umbilical hernia wit hout obstruction and without gangrene (Primary Dx) Start: 02-27-2019 End: 02-27-2019 Subsequent hospital visit by physician [facility] Comment on above: Leukocytosis, unspec ified type; Pre-diabetes Start: 12-01-2018 End: 12-01-2018 Subsequent hospital visit by physician [facility] Comment on above: Hyperlipidemia, unsp ecified hyperlipidemia type; Internal hemorrhoids; External hemorrhoids; Fatigue, unspecified type; Excessive drinking of alcohol; Impaired fasting glucose; Need for hepatitis C screening test; Screening for HIV (human immunodeficiency virus) Procedures Date Procedure Procedure Detail Performing Clinician Start: 10-30-2024 Plain x-ray of pelvi s and lower extremity Dr. Ike Harvey MD Work Phone: Start: 10-30-2024 Plain X-ray of shoulder Dr. Ike Harvey MD Work Phone: Start: 10-30-2024 X-ray of lumbosacral spine Dr. Ike Harvey MD Work Phone: Start: 07-18-2024 Prostate specific an tigen measurement Dr. Ike Harvey MD Work Phone: Comment on above: This test was perfor med using the [employer] tPSA method. Measured values of a patient sample can vary depending on the testing procedure used. PSA values determined on patient samples by different testing procedures cannot be used interchangeably. If there is a change in PSA assays while monitoring therapy, sequential testing should be performed to confirm baseline values. Start: 07-18-2024 Vitamin D, 25-hydrox y measurement Dr. Ike Harvey MD Work Phone: Comment on above: Vitamin D StatusDefi ciency: <20 ng/mL (50nmol/L)Insufficiency: 20-30 ng/mL (50-75 nmol/L)Sufficiency: 30-100 ng/mL (75-250 nmol/L)Toxicity: >100 ng/mL (>250 nmol/L) Start: 07-14-2022 Plain chest X-ray Start: 07-14-2022 X-ray of cervical spine Start: 07-14-2022 Plain X-ray of shoulder Start: 01-17-2022 CT of abdomen and pe lvis without contrast Dr. Ike Harvey Work Phone: Start: 01-05-[address] Ike flores Work Phone: Start: 03-20-2020 [object Object] [facility] Comment on above: When the Total PSA i s between 3.00 and 10.00 ng/mL, consider requesting a Free PSA to aid in diagnosis. Start: 03-20-2020 Blood count complete auto&auto difrntl wbc Rosales Irwin Orellana Work Phone: Start: 03-20-2020 Comprehensive metabo lic panel Rosales Irwin CarsonReyna Work Phone: Start: 03-20-2020 Lipid panel [facility] Irwin Abigail guzmán Work Phone: Start: 03-20-2020 PSA screening Rosales Irwin Orellana Work Phone: Start: 04-04-2019 [facility] Start: 04-04-2019 DISCHARGE PATIENT KO[facility] CARSONJIGAS Start: 04-04-2019 ASSESS [facility] Start: 04-04-2019 [facility] Start: 04-04-2019 ENCOURAGE DEEP BREAT STEWART AND COUGHING [facility] Start: 04-04-2019 INCENTIVE SPIROMETRY RT [facility] Start: 04-04-2019 INITIATE OXYGEN THER APY PROTOCOL [facility] REYNA Start: 04-04-2019 NEURO/VASCULAR CHECKS I SRAAMINTA REYNA Start: 04-04-2019 NURSING COMMUNICATION I XAVIER REYNA Start: 04-04-2019 BEDREST [facility] CAJ IGAS Start: 04-04-2019 NOTIFY PHYSICIAN (SPECIFY) [facility] REYNA Start: 04-04-2019 VITAL SIGNS [facility] CAJ IGAS Start: 04-04-2019 INITIATE OXYGEN THER APY PROTOCOL [facility] REYNA Start: 04-04-2019 PULSE OXIMETRY SPOT CHECK [facility] REYNA Start: 04-04-2019 NOTIFY PHYSICIAN (SPECIFY) [facility] REYNA Start: 04-04-2019 VITAL SIGNS [facility] CA[facility] IGAS Start: 03-29-2019 Ecg routine ecg w/le ast 12 lds w/i&r [facility] Start: 03-13-2019 Basic metabolic pane l calcium total Manoj Kyriakedes DO Start: 02-27-2019 Hemoglobin glycosylated a1c Rosales Orellana MD Work Phone: Start: 12-01-2018 Assay of thyroid stimulating hormone tsh Rosales Orellana Work Phone: Start: 12-01-2018 Blood count complete auto&auto difrntl wbc Rosales Orellana Work Phone: Start: 12-01-2018 Comprehensive metabo lic panel Rosales Orellana Work Phone: Start: 12-01-2018 Hemoglobin glycosylated a1c Rosales Orellana Work Phone: Start: 12-01-2018 Hepatitis c antibody Is clarisse Orellana Work Phone: Start: 12-01-2018 Lipid panel Rosales guzmán Work Phone: Plan of Treatment Date Care Activity Detail Author Start: 11-04-2025 DTaP/Tdap/Td vaccine (2 - Td) DTaP/Tdap/Td vaccine (2 - Td) [place] Start: 11-19-2024 End: 11-19-2024 Patient encounter procedure Aortic stenosis -[facility] Work Phone: Start: 03-20-2021 HbA1c (Bld) [Mass fraction] A1C test (Diabetic or Prediabetic) [place] Start: 03-20-2021 Hemoglobin A1c measurement A1C test (Diabetic or Prediabetic) [facility] Work Phone: Start: 03-20-2021 Lipid panel Lipid screen [place] Start: 09-08-2020 End: 09-08-2020 Patient encounter procedure [facility] Start: 03-06-2020 Lipid screen Lipid screen [facility] Work Phone: Start: 02-28-2020 A1C test (Diabetic o r Prediabetic) A1C test (Diabetic or Prediabetic) [facility] Work Phone: Start: 12-02-2019 Lipid screen Lipid screen [facility] Work Phone: Start: 09-04-2019 End: 09-04-2019 Office Visit 09/04/2019 Office Visit Family Medicine Rosales Orellana MD [address] [place] [address] [phone] [facility] Start: 04-04-2019 End: 04-04-2019 Admission to same day surgery center 04/04/2019 Surgery IP Unit Kirsten Ramos MD [address] [place] [address] [phone] REPAIR OF AN UMBILICAL HERNIA DANDY BLOCK (LABS DONE 03/13/19 & EKG DONE 03/29/19) 1 HOUR [facility] Comment on above: REPAIR OF AN UMBILIC AL HERNIA DANDY BLOCK (LABS DONE 03/13/19 & EKG DONE 03/29/19) 1 HOUR Start: 04-04-2019 Subsequent hospital visit by physician 04/04/2019 Hospital Encounter IP Unit Kirsten Ramos MD [address] [place] [address] [phone] [facility] Start: 03-02-2019 End: 03-02-2019 Office Visit [facility] Start: 05-30-[address] lung screening Low dose CT lung screening [place] Start: 05-30-2009 Colon cancer screen colonoscopy Colon cancer screen colonoscopy [place] Start: 05-30-2009 Screening for malignant neoplasm of colon Colon cancer screen colon[place] Start: 05-30-2009 Shingles Vaccine (1 of 2) Shingles Vaccine (1 of 2) [place] Start: 1999 Lipid screen Lipid screen [place], [place] Start: 1975 COVID-19 Vaccine (1) COVID-19 Vaccin e (1) [facility] Work Phone: Start: 05-30-1974 HIV screen HIV screen [place], [place] Start: 1971 COVID-19 Vaccine (1) COVID-19 Vaccin e (1) [employer] Phone: Start: 05-30-1969 A1C test (Diabetic o r Prediabetic) A1C test (Diabetic or Prediabetic) [place] Start: 05-30-1965 Pneumococcal 0-64 years Vaccine (1 of 1 - PPSV23) Pneumococcal 0-64 years Vaccine (1 of 1 - PPSV23) [place], [place] Start: 1959 Hepatitis C screen Hepatitis C scree n [place] CTA Chest vessels WO and W contrast IV [facility] EKG 12 Lead EKG 12 Lead ECG Routine 03/29/2019 8:42 AM EST [employer] Phone: End: 12-01-2018 HIV-1,2 Combo Ag/Ab By [facility], Reflexive Panel HIV-1,2 Combo Ag/Ab By [facility], Reflexive Panel Lab Routine Screening for HIV (human immunodeficiency virus) 1 Occurrences starting 12/01/2018 until 12/01/2018 [place] Comment on above: 1 Occurrences starti ng 12/01/2018 until 12/01/2018 HIV-1,2 Combo Ag/Ab By [facility], Reflexive Panel HIV-1,2 Combo Ag/Ab By [facility], Reflexive Panel Lab Routine Screening for HIV (human immunodeficiency virus) 12/01/2018 8:00 AM EDT [place] Incentive spirometry Incentive s pirometry Respiratory Care Routine Every 2hr while awake until discontinued starting 04/04/2019 [employer] Phone: Comment on above: Every 2hr while awak e until discontinued starting 04/04/2019 Initiate Oxygen Therapy Protocol Initiate Oxygen Therapy Protocol Respiratory Care Routine Daily until discontinued starting 04/04/2019 [employer] Phone: Comment on above: Daily until disconti nued starting 04/04/2019 [facility] Education [facility] Work Phone: Patient referral [facility] Work Phone: Phase I & II - meter ed glucose Phase I & II - metered glucose Point of Care Testing Routine As Needed until discontinued starting 04/04/2019 [employer] Phone: Comment on above: As Needed until disc ontinued starting 04/04/2019 End: 04-04-2019 Pulse Oximetry Spot Check Pulse Oximetry Spot Check Respiratory Care Routine One Time for 1 Occurrences starting 04/04/2019 until 04/04/2019 [employer] Phone: Comment on above: One Time for 1 Occur rences starting 04/04/2019 until 04/04/[address] [facility] Immunizations Immunization Date Immunization Notes Care Provider Fa shantal 03-20-2020 influenza, injectabl e, quadrivalent, contains preservative [facility] [place] 03-02-2019 pneumococcal polysaccharide vaccine, 23 valent Manoj Fernández DO [employer] Phone: 11-27-2018 influenza, injectabl e, quadrivalent, contains preservative [facility] [place] 11-05-2015 tetanus toxoid, redu adán diphtheria toxoid, and acellular pertussis vaccine, adsorbed [facility] [place] Payers Date Payer Category Payer Self-pay [id number] 2023 Unknown [id number] 2023 Medicare [id number] 2014 Unknown [facility] [place] xxxxxxxxxxx 2014-Present [phone] [address] [place] [address] xxxxxxxxxxx [id number] 2014 Unknown [id number] 1959 Unknown [id number] 1959 Unknown [id number] 1959 Unknown [id number] 1959 Unknown [id number] 1959 Unknown [id number] Unknown [id number] Unknown [id number] Unknown [id number] Unknown [id number] Unknown [id number] Unknown [id number] Unknown [id number] [id number] Unknown [id number] [id number] Unknown [id number] Unknown [id number] Social History Date Type Detail Facility Start: 11-27-2018 End: 11-19-2024 Tobacco smoking status NHIS Former smoker [facility] Start: 02-28-1973 End: 05-04-2011 History of tobacco use [place] Start: 02-28-1973 End: 05-04-2011 History of tobacco use [place]igarette [place] Start: 11-27-2018 End: 03-29-2019 Cigarettes smoked current (pack per day) - Reported [place] Start: 11-27-2018 Alcohol intake Yes [facility] Start: 05-03-2018 End: 03-20-2020 History SDOH Alcohol Frequency 5 [place] Start: 11-27-2018 End: 03-20-2020 History SDOH Alcohol Std Drinks 2 [place] Start: 11-27-2018 History SDOH Alcohol Binge 4 [place] Start: 1960 Sex Assigned At Not on file [place] Start: 03-02-2019 End: 03-29-2019 Alcohol intake Current drinker of alcohol (finding) [facility] Work Phone: Start: 03-20-2020 End: 05-09-2020 Tobacco use and exposure Never used [place] Start: 03-20-2020 History SDOH Food Worry 1 [place] Exposure to SARS-CoV -2 (event) Yes [place] Start: 1960 Sex Assigned At Male [facility] Start: 01-17-2022 End: 07-14-2022 Tobacco smoking status NHIS Unknown if ever smoked [facility] Medical Equipment Procedure Code Equipment Code Equipment Origin al Text Equipment Identifier Dates Mesh Plug Perfix Light Sm 1x1.4in [id number] Start: 04-04-2019 Clinical Notes 03-13-2019 to 11-19-2024 Note Date & Type Note Facility 11-19-2024 Progress note [facility] 11-01-2024 Radiology Diagnostic study note [facility] [address] [place], [place] [address] L/S Spine Min 4 Views MR#: [id number] Acct: [id number] Name: LANEY VAN Rep #: [id number] : 1960 M 64 From: Stiven Valverde MD PCP: Dr. Ike Harvey MD Status: REG Abigail BREWER Study:L/S Spine Min 4 Views Date of Exam: 10/30/24 Exam# [id number] Ordering Dr: Ike Harvey MD PROCEDURE: L/S SPINE MIN 4 VIEWS 10/30/2024 REASON FOR EXAM: LOW BACK PAIN TECHNIQUE: Procedure Code: RADSPLS Modality: DX Procedure: L/S SPINE MIN 4 VIEWS COMPARISON: None FINDINGS: Curvature: Levoconvex scoliosis. Other findings: Multilevel spondylosis and disc space narrowing. Facet joint osteoarthritis. Other: Calcification of the abdominal aorta. RAD/L/S Spine Min 4 Views IMPRESSION: Levoconvex scoliosis. Multilevel disc space narrowing and spondylosis with facet joint osteoarthritis. Calcification of the abdominal aorta. Reading [id number] CC: Dr. Ike Harvey MD ~ Charge Machine Operator: Signed [facility] 11-01-2024 Radiology Diagnostic study note [facility] [address] [place] [address] HIP, UNI W/ Pelvis 2-3 Views MR#: [id number] Acct: [id number] Name: LANEY VAN Rep #: [id number] : 1960 M 64 From: Stiven Valverde MD PCP: Dr. Ike Harvey MD Status: REG C OSMAN Study:HIP, UNI W/ Pelvis 2-3 Views Date of Ex am: 10/30/24 Exam# [id number] Ordering Dr: Ike Harvey MD PROCEDURE: HIP, UNI W/ PELVIS 2-3 VIEWS 10/30/2024 REASON FOR EXAM: LEFT HIP PAIN/LT SIDED SCIATICA/LOW BACK PAIN TECHNIQUE: Procedure Code: RADHP Modality: DX Procedure: HIP, UNI W/ PELVIS 2-3 VIEWS Laterality: Left COMPARISON: None FINDINGS: Bones: No fracture is seen. Joints: Moderate degree of joint space narrowing involving both hip joints. Degenerative changes of the symphysis pubis. Soft tissues: Calcified phleboliths in the right hemipelvis. Other: RAD/HIP, UNI W/ Pelvis 2-3 Views IMPRESSION: Osteoarthritis of both hip joints. Degenerative changes of the symphysis pubis. Reading Location: -[id number] CC: Dr. Ike Harvey MD ~ Charge Machine Operator: Signed [facility] 10-30-2024 Radiology Diagnostic study note [facility] [address] [place] [address] Shoulder min 2 Views MR#: [id number] Acct: [id number] Name: LANEY VAN Rep #: [id number] : 1960 M 64 From: Katty Garcia MD PCP: Dr. Ike Harvey MD Status: REG C OSMAN Study:Shoulder min 2 Views Date of Exam: 10/30/24 Exam# [id number] Ordering Dr: Ike Harvey MD PROCEDURE: SHOULDER MIN 2 VIEWS 10/30/2024 REASON FOR EXAM: RIGHT SHOULDER PAIN TECHNIQUE: Procedure Code: RADSH Modality: DX Procedure: SHOULDER MIN 2 VIEWS COMPARISON: none RAD/Shoulder min 2 Views IMPRESSION: No acute fracture or dislocations. Mild degenerative changes of the right shoulder. No acute soft tissue abnormalities. No radiographic foreign body. Reading Location: [facility] CC: Dr. Ike Harvey MD ~ Charge Machine Operator: Signed [facility] 05-27-2024 Evaluation note Diagnosis Onset Date Resolution Dog bite acute May 27 12:47pm [facility] Work Phone: [phone] Hospital Discharge instructions* Instructions* Manoj Fernández DO - 03/13/2019 Return if you are unable to reduce your umbilical hernia should it come out again. Follow-up with your primary for surgical referral for repair of your umbilicus hernia. Return if fever greater than 100.4. [facility]: evaluation note* Diagnosis Leukocytosis, unspecified type Pre-diabetes Other abnormal glucose documented in this encounter [employer] Phone: evaluation note* Diagnosis Umbilical hernia without obstruction and without gangrene- Primary documented in this encounter [employer] Phone: evaluation noteNo assessment information available [facility] Work Phone: Evaluation note* Diagnosis Onset Date Resolution Status Admit Date Aortic stenosis acute November 19, 2024 8:20am Chest pain of unknown etiology acute November 19, 2024 8:20am Dilated aortic root acute Septe mber 2024 8:20am Essential (primary) hypertension acute November 19, 2024 8:20am Hyperlipidemia acute November 19, 2024 8:20am [facility] Work Phone: Hospital Discharge instructions Additional Instructions CT scan negative for any hernia. Urine negative. Clinical epididymitis. Take antibiotic as prescribed. Tylenol or ibuprofen as needed. Continue scrotal support as discussed.[facility] Work Phone: Progress note Author Jose Alejandro Ornelas [facility] Services Note Date/Time November 19, 2024 9:06am [facility] [address] [place] [address]. [address] [place] [address] OFFICE VISIT Date of Service: 11/19/24 MR#: [id number] Acct: [id number] Name: LANEY VAN Rep #: [id number] : 1960 Provider: MAGGIE Ornelas Age/Sex: 64/M Location: [facility] Status: Signed HPI HPI History of Present Illness Details: Pleasant 64-year-old man with no previous cardiac history who had presented to the emergency room because he had been checking his blood pressures at home and felt that he was having heatstroke. He was noted to have blood pressures in [id number] to 180s he was evaluated in the emergency room he was treated and subsequently discharged. He subsequently saw his primary physician who noted that he had a heart murmur and asked him to have an echocardiogram which demonstrated preserved ejection fraction peak gradient of 40 mmHg across the aortic valve with a mean gradient of 22 mmHg. He was sent to cardiology for further evaluation and management. He was also noted to have a moderately dilated aortic root. He denies chest, arm, jaw, or neck discomfort. He denies palpitations or bilateral lower extremity edema. He denies shortness with activity, shortness of breath at rest, orthopnea, cough, or PND. He denies lightheadedness, dizziness, near- syncope, syncope, weakness, or fatigue. 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: No Accompanied by: Self Is patient in pain?: No Allergies No Known Allergies Allergy (Verified 11/19/24 08:28) Medications ?Medication ?Instructions ?Recorded ?Confirmed ?Type gabapentin 300 mg capsule 300 mg PO QHS 09/10/2311/19 History losartan 100 mg tablet 100 mg PO QHS 09/10/2311/19 History rosuvastatin 40 mg tablet 40 mg PO DAILY 09/10/2310/30 History amlodipine 5 mg tablet 10 mg PO DAILY 11/19/2410/30 History citalopram 10 mg tablet 20 mg PO DAILY 11/19/2410/30 History Ejection fraction %: 70 Have you fallen in the past year?: Yes PFSH Medical History YELITZA (obstructive sleep apnea) Hepatic fibrosis Insomnia Fatigue Anxiety and depression RBBB Essential (primary) hypertension Aortic stenosis Chest pain of unknown etiology Cardiac murmur Hyperlipidemia Surgical History History of hernia surgery Family History Brother CVA (cerebral vascular accident) Prostate cancer Mother Alzheimer's dementia Social History (Updated 11/19/24 @ 08:31 by Jaleesa Bajwa) Smoking Status: Former smoker how long ago did patient quit smokin years alcohol intake: current substance use type: marijuana ROS Const Const: Negative for fatigue or weakness Eyes Eyes: Positive for change in vision ("I'm getting old") ENT ENT: Negative for dizziness or balance problems Cardio Chest Pain: No Palpitations: No Edema: None Muscle aches with walking: None Resp Respiratory: Negative for SOB with activity, SOB at rest or SOB orthopnea\\SOB lying down GI GI: Positive for heartburn (Feels it in his chest, but if he takes TUMS it goes away.); Negative nausea : Negative for hematuria or frequent nighttime urination/ nocturia Musc Musc: Negative for balance problems Skin Skin: Negative non-healing lesions or rash Neuro Neuro: Negative for dizziness, lightheadedness, near syncope, syncope or weakness Endo Endo: Negative for fatigue Allergy Allergy/Immunology: Negative for rash Cardiology Exam Const Appearance: cooperative, healthy appearing, comfortable and no acute distress Nutritional Appearance: well nourished and obese Orientation: alert, awake and oriented x3 Head Head: normal to inspection Ears: hearing grossly normal bilaterally Nose: external nose normal Face and Sinus: face symmetric Mouth: moist mucous membranes Eyes General: appearance normal, both eyes and all related structures Eyelids: eyelids normal EOM: EOM intact bilaterally Neck Neck: normal visual inspection and no JVD Carotids: normal carotid upstroke Chest Chest inspection: normal inspection of the chest, symmetric chest movement and normal respiratory effort; Negative cough Auscultation: Bilateral: Clear to Auscultation Cardio Rate: regular rate Rhythm: regular rhythm Heart sounds: S1 normal, S2 normal and murmur; Negative rub or gallop Murmur: Grade 2/6 and WILLIAM loudest primary aortic area GI GI: normal to inspection and obese Neuro General: patient alert, patient awake, patient oriented x3 and CN's II-XI intactbilaterally Skin Skin: no rashes or lesions noted Extremities Pulses: Normal: Right Posterior Tibial Pulse, Left Posterior Tibial Pulse, RightRadial Pulse and Left Radial Pulse Lower Extremity Edema: None: Bilateral Psych Psychological: normal affect Supplemental Info Supplemental Information Echocardiogram 09/16/23 Interpretation Summary Moderate concentric left ventricular hypertrophy. The left ventricular ejection fraction is 70 %. Moderate diffuse aortic valve calcification. Mild aortic stenosis. Moderately dilated aortic root. CT Lung 01/05/22 Aorta: Mild degree of atherosclerotic plaque formation of the aortic arch. CORONARY ARTERIES: Coronary artery calcification is seen. Heart: Unremarkable. Pulmonary artery: Unremarkable. Stress test from 12/15/2023: Conclusion: Exercise stress test with no EKG criteria for ischemia at a high workload No clinical angina noted Assessment and Plan Assessment and Plan (1) Aortic stenosis: Status: Acute Plan: Echocardiogram in August 2023 showed LV function 70%, mean aortic valve gradient 22.1 mmHg, and moderately dilated aortic root. Will repeat echocardiogram to assess further. Depending on results, further recommendation be made. (2) Essential (primary) hypertension: Status: Acute Plan: Will increase Amlodipine to 10mg PO daily to assist with blood pressure control. If he develops concerning symptoms at higher dose amlodipine, he is asked to call our office and reduce amlodipine back to 5 mg p.o. daily. (3) Chest pain of unknown etiology: Status: Acute Plan: He does have mild chest discomfort of unknown etiology. He was noted to have coronary artery calcification on his CT scan 2 years ago. To assess this further, he underwent a stress ECG on 12/15/2023 was negative for ischemia at a high workload. His chest pain has resolved since last visit. At this time, we will continue to monitor. (4) Hyperlipidemia: Status: Acute Plan: Lipid panel 01/19/2024 showed total cholesterol: 124, HDL: 45, LDL: 44, and triglycerides: 176. He will continue risk factor and lifestyle modification. He will continue Crestor 40 mg p.o. daily. (5) Dilated aortic root: Status: Acute Plan: He does have a mildly dilated aortic root. He was asked to go chest CT scan to formally measure aortic root size. Depending results, further recommendation bemade. Will continue to focus on heart rate and blood pressure control. Orders: Orders Echo Complete Today I35.0 - Nonrheumatic aortic (valve) stenosis, I77.810 - Thoracic aortic ectasia CTA Chest W/WO Contrast Today I35.0 - Nonrheumatic aortic (valve) stenosis, I77.810 - Thoracic aortic ectasia Medications: Changed From amlodipine 5 mg PO DAILY To amlodipine 10 mg PO DAILY Plan Details Additional Comments: Thank you for allowing us to participate in the patients plan of care, if you have any questions please do not hesitate to call. Plan was reviewed with patient/family member along with red flag symptoms. Understanding was acknowledged. Questions were answered to apparent satisfaction. This note was generated using a voice recognition system and there may be incorrect words, spelling or punctuation that were not noted when reviewing the office note prior to saving. Portions of this documentation were copied and pasted from previous office visitnotes to provide a cohesive continuity of the history. The note has been reviewed, edited, and updated, as necessary. 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) Coding Level of Care Code Off vis,est,level 4 Diagnoses Aortic stenosis I35.0 Essential (primary) hypertension I10 Chest pain of unknown etiology R07.9 Hyperlipidemia E78.5 Dilated aortic root I77.810 Coding Level of Care Code Off vis,est,level 4 Diagnoses Aortic stenosis I35.0 Essential (primary) hypertension I10 Chest pain of unknown etiology R07.9 Hyperlipidemia E78.5 Dilated aortic root I77.810 Clinical Quality Measures Falls Risk Screening/Assistive Devices Have you fallen in the past year?: Yes Cardiac Ejection fraction %: 70 11/19/24 0906 <Electronically signed by Jose Alejandro Mcdowell P CARDIOLOGY PHYSICIAN-C> Date _ Jose Alejandro Ornelas NP CARDIOLOGY PHYSICIAN-C Cosigner Signature: Date (if applicable) CC: Dr. Chau Connolly MD; Dr. Ike Harvey MD ~ [facility] Work Phone: Reason for referral (narrative)No reason for referral information availableWMount St. [facility] Work Phone: Summary Purpose Family History No Family History Records Found Relationship Condition Age at Onset Recorded Date/T cholo brother Cerebrovascular accident (CVA) Unknown Malignant neoplasm of prostate Unknown mother Alzheimer's dementia Unknown Advance Directives No Advanced Directives Records FoundDocuments on File Type Date Recorded Patient Meeting Manager Expl anation Advance Directives and Living Will Power of Ip Architect Documents on File Type Date Recorded Patient Meeting Manager Expl anation Advance Directives and Living Will Power of Ip Architect Documents on File Type Date Recorded Patient Meeting Manager Expl anation ACP-Advance Directive ACP-Power of Ip Architect Documents on File Type Date Recorded Patient Meeting Manager Expl anation ACP-Advance Directive ACP-Power of Ip Architect Advance Directive Response Recorded Date/ Time Living Will No January 17 12:54pm Power of Ip Architect No January 17, 2022 12:54pm Advance Directive Response Recorded Date/ Time Living Will No July 14, 2022 6 :45am Power of Ip Architect No July 14, 2022 6:45am Advance Directive Response Recorded Date/ Time Living Will No September 10, 2023 6:47pm Do you have a Healthcare Power of Ip Architect? No September 10, 2023 6:47pm Assessments Diagnosis Hyperlipidemia, unspecified hyperlipidemia type Internal hemorrhoids Internal hemorrhoids without mention of complication External hemorrhoids External hemorrhoids without mention of complication Fatigue, unspecified type Excessive drinking of alcohol Alcohol abuse, unspecified Impaired fasting glucose Need for hepatitis C screening test Special screening examination for other specified viral diseases Screening for HIV (human immunodeficiency virus) Special screening examination for other specified viral diseases Diagnosis Umbilical hernia without obstruction and without gangrene- Primary Diagnosis Screening for prostate cancer Special screening for malignant neoplasm of prostate Well adult exam Routine general medical examination at a health care facility Mixed hyperlipidemia Discharge Instructions * Instructions* Kirsten Ramos MD - 04/04/2019 Patient Discharge Instructions Discharge Date: 04/04/2019 Discharged To: Home RESUME ACTIVITY: BATHING: shower only for 2 weeks, no baths, hot tub or swim pool DRIVING: No driving until walking comfortably and off pain meds RETURN TO WORK: May return to work when pain allows WALKING: Encourage to walk as much as comfortable SEXUAL ACTIVITY: As pain tolerates STAIRS: Yes in moderation LIFTING: Less than 20 pounds for 2 weeks, remember to lift as tolerated by your pain level DIET: Light diet today and resume normal diet tomorrow WOUND CARE: no dressing needed. There are sutures on each side of the incision that will fall off in 2-4 weeks. Allow shower to the wound and blot dry with a towel. Do not scrub the incision SPECIAL INSTRUCTIONS: Call the office at [phone] if you have a fever > 100.6 F, vomiting or if your incision becomes red, tender, or drains more than a small amount of clear fluid. Remember the more active you arethe more pain to expect documented in this encounter Chief Complaint and Reason for Visit Chief Complaint SOB Chief Complaint SOB Personal history of nicotine dependence Chief Complaint SOB Personal history of nicotine dependence MALE PAIN Chief Complaint L Shoulder Chief Complaint Admit Date DOG BITE/CONCERN FOR INFECTION April 12:47pm Reason for Visit Admit Date Dog bite May 27, 2024 12: 47pm Chief Complaint Admit Date 1 Y FU November 19, 2024 8:20am Reason for Visit Admit Date Aortic stenosis November 19, 2024 8:20am Chest pain of unknown etiology November 19, 2024 8:20am Dilated aortic root November 19, 2024 8:20am Essential (primary) hypertension Septemb er 2024 8:20am Hyperlipidemia November 19, 2024 8:20am Additional Source Comments (unrecognized sect ion and content) No Status Records FoundNo Status Records FoundNo Status Records FoundNo Status Records Found INFORMATION SOURCE (unrecogn ized section and content) DATE CREATED AUTHOR 05/08/2018 [facility] DATE CREATED AUTHOR AUTHOR'S ORGANIZ ATION 03/21/2020 [facility] DATE CREATED AUTHOR AUTHOR'S ORGANIZ ATION [facility] DATE CREATED AUTHOR AUTHOR'S ORGANIZ ATION 12/13/2024 [facility] Reason for Visit (unrecogniz ed section and content) Status Reason Specialty Diagnoses / Procedures Referre d By Contact Referred To Contact Diagnoses Umbilical hernia UMBILICAL HERNIA Procedures REPAIR UMBILICAL MAKAYLA,5+Y/O,MICKEY UMBILICAL HERNIA REPAIR, DANDY BLOCK Kirsten Ramos MD [address] [address] [facility] Status Reason Specialty Diagnoses / Procedures Referred By Contact Referred To Contact Pending Review Sleep Center Diagnoses Hypersomnia Frequent nocturnal awakening Procedures Baseline Diagnostic Sleep Study Rosales Orellana MD [address] [place] [address] Status Reason Specialty Diagnoses / Procedures Referred By Contact Referred To Contact Closed Sleep Center Diagnoses YELITZA (obstructive sleep apnea) Procedures Sleep Study with PAP Titration Rosales Orellana MD [address] [facility] [address] [place] [address] Reason Comments Emesis Abdominal Pain Nausea Goals (unrecognized section and content) Goals may be documented in a n alternate sectionGoals may be documented in an alternate sectionGoals may be documented in an alternate sectionGoals may be documented in an alternate sectionGoals may be documented in an alternate sectionGoals may be documented in an alternate sectionGoals may be documented in an alternate sectionGoals may be documented in an alternate sectionGoals may be documented in an alternate section Care Teams (unrecognized sec tion and content) Team Status: Active Member Role Status Dates Dr. Ike Harvey MD Primary Care Provider Active Team Status: Inactive Member Role Status Dates Dr. Ike Harvey MD Primary Care Provider Active Dr. Jose Maurer MD Attending Provider, Emergency Provider Active Team Status: Active Member Role Status Dates Dr. Ike Harvey MD Primary Care Provider, Attending Provider Active Team Status: Inactive Member Role Status Dates Dr. Ike Harvey MD Primary Care Provider, Attending Provider Active Team Status: Inactive Member Role Status Dates Dr. Ike Harvey MD Primary Care Provider Active Start: May 27, 2024 End: May 27, 2024 Dr. Ike Harvey MD Referring Provider Active Start: May 27, 2024 End: May 27, 2024 Jose Alejandro Ornelas NP CARDIOLOGY PHYSICIAN-C Attending Provider Active S tart: May 27, 2024 End: May 27, 2024 Team Status: Inactive Member Role Status Dates Dr. Ike Harvey MD Primary Care Provider Active Start: July 18, 2024 End: July 18, 2024 Dr. Ike Harvey MD Attending Provider Active Start: July 18, 2024 End: July 18, 2024 Dr. Ike Harvey MD Referring Provider Active Start: July 18, 2024 End: July 18, 2024 Team Status: Active Member Role/Relationship Status Dates Dr. Ike Harvey MD Primary care physician Active Team Status: Inactive Member Role/Relationship Status Dates Dr. Ike Harvey MD Primary care physician Active Start: October 30, 2024 End: October 30, 2024 Dr. Ike Harvey MD Attending physician Active Start: October 30, 2024 End: October 30, 2024 Dr. Ike Harvey MD Referring Provider Active Start: October 30, 2024 End: October 30, 2024 Team Status: Inactive Member Role/Relationship Status Dates Dr. Ike Harvey MD Primary care physician Active Start: November 19, 2024 End: November 19, 2024 Dr. Ike Harvey MD Referring Provider Active Start: November 19, 2024 End: November 19, 2024 Jose Alejandro H Roof CARDIOLOGY PHYSICIAN, CARDIOLOGY PHYSICIAN-C Attending physician Active Start: November 19, 2024 End: November 19, 2024 FOR RECORDS PERTAINING TO PATIENTS WHO ARE OR HAVE BEEN ENROLLED IN A CHEMICAL DEPENDENCY/SUBSTANCEABUSE PROGRAM, SOME INFORMATION MAY BE OMITTED. This clinical summary was aggregated from multiple sources. Caution should be exercised in using it in the provision of clinical care. This summary normalizes information from multiple sources, and as a consequence, information in this document may materially change the coding, format and clinical context of patient data. In addition, data may be omitted in some cases. CLINICAL DECISIONS SHOULD BE BASED ON THE PRIMARY CLINICAL RECORDS. [facility] [employer] [facility]. provides no warranty or guarantee of the accuracy or completeness of information in this document.
== END | disposition home or self-care (01) ==
LOC: CVS 07:45
PROVIDERS: PCP Family Medicine Geriatric Medicine; Referring Provider Nurse Practitioner Family; Visit Provider Nurse Practitioner Family
DX: I35.0 Nonrheumatic aortic (valve) stenosis (principal); I77.810 Thoracic aortic ectasia
CPT/HCPCS: 93306

== ENCOUNTER → 2025-01-30 | Outpatient (CLI) | payer MEDICARE, SELFPAY ==
[2025-01-30 10:00] LABS: Hematocrit 44.6 % (40-54); Hemoglobin 15.2 g/dL (13.0-16.5); Immature Granulocytes Count 0.110 X10^3/uL (0.0-0.0); Mean Corp Hgb Conc 34.1 g/dL (32-36); Mean Corpuscular Volume 87.1 fL (80-94); Mean Platelet Vol. 10.4 fl (6.2-12.0); NRBC Flagged by Analyzer 0 % (0-5); Platelet Count 220 K/mm3 (150-450); RBC Distribution Width CV 14.2 % (11.6-14.6); RBC Distribution Width SD 46.0 fl (35.1-43.9); Red Blood Count 5.12 M/mm3 (4.6-6.2); White Blood Count 11.7 K/mm3 (4.4-11.0)
[2025-01-30 10:54] LABS: AST(SGOT) 24 U/L (<=37); Alanine Aminotransfer ALT/SGPT 25 U/L (<=46); Albumin, Serum 4.6 g/dL (3.4-4.8); Alkaline Phosphatase 69 U/L (40-129); Anion Gap 11 (5-15); BUN 16 mg/dL (4-19); BUN/Creat Ratio 16.3 RATIO (10-20); Calcium,Total 9.5 mg/dL (7.6-11.0); Carbon Dioxide 25.6 mmol/L (21.0-32.0); Chloride 101 mmol/L (98-108); Globulin 2.6 g/dL (2.2-4.2); Glucose 117 mg/dL (70-99); Potassium 4.5 mmol/L (3.3-5.1); Vitamin D,25 Hydroxy 24.5 ng/mL (30-100)
[2025-01-30 17:44] LABS: Xtra Tube Kwok EXTRA TUBE
== END | disposition home or self-care (01) ==
LOC: POLAB3 09:44
PROVIDERS: PCP Family Medicine Geriatric Medicine; Visit Provider Family Medicine Geriatric Medicine
DX: E03.9 Hypothyroidism, unspecified (principal); E55.9 Vitamin D deficiency, unspecified; E78.5 Hyperlipidemia, unspecified; I10 Essential (primary) hypertension
CPT/HCPCS: 36415; 80053; 82306; 84443; 85025